=== PATIENT | male | born 1955 ===

== ENCOUNTER → 2020-01-27 09:08 | Outpatient (BNVA) | payer BC, SELFPAY | PROVIDERS: PCP Physician Assistant; Referring Provider Physician Assistant; Visit Provider Nurse Practitioner Family | DX: I25.10 Atherosclerotic heart disease of native coronary artery without angina pectoris (principal); E78.5 Hyperlipidemia, unspecified; I10 Essential (primary) hypertension; R06.02 Shortness of breath; Z79.899 Other long term (current) drug therapy; Z79.82 Long term (current) use of aspirin ==

== ENCOUNTER 2020-03-07 07:31 | Outpatient (REF) | payer BC, SELFPAY ==
[2020-03-07 10:13] LABS: MANUAL DIFF FLAG NO
[2020-03-07 10:14] LABS: Basophils Absolute Auto 0.1 X10*3/uL (0.0-0.2); Basophils Percent Auto 0.8 % (0-2); Eosinophils Absolute Auto 0.3 X10*3/uL (0.0-0.4); Eosinophils Percent Auto 4.2 % (0-4); Hematocrit 44.7 % (42-52); Hemoglobin 15.5 g/dl (14.0-18.0); Imm Gran Abs Auto 0.03 X10*3/uL (0.00-0.03); Imm Gran Pct Auto 0.4 % (0.0-0.4); Lymphocytes Absolute Auto 2.2 X10*3/uL (1.2-4.9); Lymphocytes Percent Auto 31.3 % (20-40); Mean Corpuscular HGB Conc 34.7 g/dl (31.0-36.0); Mean Corpuscular Volume 89.4 fL (80-98); Mean Platelet Volume 9.2 fL (9.4-12.4); Monocytes Absolute Auto 0.8 X10*3/uL (0.1-1.2); Monocytes Percent Auto 10.5 % (2-11); Neutrophils Absolute Auto 3.8 X10*3/uL (2.0-8.3); Neutrophils Percent Auto 52.8 % (45-73); Platelet Count 304 X10*3/uL (160-400); Red Cell Distribution Width 11.3 % (11.0-16.0); White Blood Count 7.2 X10*3/uL (4.8-10.8)
[2020-03-07 10:27] LABS: Estimated Average Glucose 108 mg/dL; Hemoglobin A1c % 5.4 %
[2020-03-07 10:40] LABS: Alanine Aminotransferase 29 U/L (0-40); Albumin Level 4.3 g/dL (3.5-5.0); Alkaline Phosphatase 83 U/L (39-117); Anion Gap 12 (12-20); Aspartate Amino Transferase 20 U/L (5-37); Blood Urea Nitrogen 11 mg/dL (9-16); Calcium 9.1 mg/dL (8.4-10.2); Carbon Dioxide 31 mmol/L (22-29); Chloride 103 mmol/L (96-108); Cholesterol 150 mg/dL; Estimated Glomerular Filt Rate > 60; Glucose Fasting 114 mg/dL (60-99); HDL Cholesterol 49 mg/dL; LDL Cholesterol Calculated 75 mg/dl; Sodium 142 mmol/L (135-145); Total Protein 6.6 g/dL (6.5-8.0); Triglycerides 134 mg/dL
[2020-03-07 11:03] LABS: Prostate Specific Antigen 0.51 ng/mL (<0.05-4.0); Thyroid Stimulating Hormone 3.01 uIU/mL (0.32-4.0)
== END 2020-03-07 07:32 | disposition home or self-care (01) ==
LOC: HO.10HDL 07:31
PROVIDERS: Visit Provider Physician Assistant
DX: E78.5 Hyperlipidemia, unspecified (principal); I10 Essential (primary) hypertension; R73.09 Other abnormal glucose; Z12.5 Encounter for screening for malignant neoplasm of prostate
CPT/HCPCS: 36415; 80053; 80061; 83036; 84153; 84443; 85025

== ENCOUNTER → 2020-09-05 14:52 | Outpatient (BNVA) | payer BC, SELFPAY | PROVIDERS: PCP Physician Assistant; Visit Provider Internal Medicine Cardiovascular Disease ==

== ENCOUNTER → 2020-09-26 08:55 | Outpatient (REF) | payer BC, SELFPAY ==
--- NOTE | 2020-09-26 09:00 | CA_ITS ---
Acquisition Time: 2020-09-26 09:07:25 Total Exercise Time: 00:09:00 Test Indications: SOB Medications: Protocol: ANA Max HR: 137 BPM 87% of Pred: 157 BPM Max BP: 230/076 mmHG Max Work Load: 10.4 METS Exercise stress test with exercise 9 min of Ana protocol, without anginal symptoms, without arrythmia, with hypertensive response to exercise with max BP 230/76, without EKG changes meeting criteria for ischemia. In recovery his BP gradually returned to baseline. He took his Lisinopril 40mg po last evening. Test reviewed with Dr Marshall. Referred By: Shine Marshall Overread By: RODDY SULLIVAN
== END ==
LOC: HO.CARD 08:55
PROVIDERS: Visit Provider Internal Medicine Cardiovascular Disease
DX: R06.02 Shortness of breath (principal)
CPT/HCPCS: 93017

== ENCOUNTER → 2020-09-28 14:02 | Outpatient (REF) | payer BC, SELFPAY ==
--- NOTE | 2020-09-28 14:05 | CA_ITS ---
Transthoracic Echocardiogram Patient (Last, First, Middle): Lalo Hayes E Gender: Male Date of : 1955 Age: 64 Procedure Date: 09/28/2020 Procedure Type: Transthoracic Echocardiogram Location: OP Height: 177.8 cm Weight: 85.73 kg BSA: 2.04 m2 Heart Rate: bpm BP: 135 / 80 mmHg Commercial Crabber: MYRIAM Referring MD: Shine Marshall MD Symptoms: R06.02 - Shortness of breath Study Quality: Technically Difficult ECG Rhythm: Sinus Conclusions: - The left ventricular systolic function is normal. The visually estimated ejection fraction is between 60-65%. - There is mild calcification of the aortic valve. Findings Left Ventricle Normal left ventricular cavity size. There is normal left ventricular wall thickness. The left ventricular systolic function is normal. The visually estimated ejection fraction is between 60-65%. There is no evidence of regional wall motion abnormalities. Diastolic function is normal for age. Right Ventricle Normal right ventricular cavity size and systolic function. Atria Both atria are normal in size. Aortic Valve There is a normal trileaflet aortic valve. There is mild calcification of the aortic valve. There is no aortic valve stenosis. The mean gradient is 4 mmHg. The aortic valve area is 2.78 cm2. There is no aortic valve regurgitation. Mitral Valve The mitral valve appears normal. There is trace mitral valve regurgitation. There is no mitral valve stenosis. Pulmonic Valve The pulmonic valve was not well visualized. Tricuspid Valve Normal tricuspid valve structure. There is trace tricuspid valve regurgitation. The pulmonary artery systolic pressure is normal. Great Vessels The aortic annulus, sinuses of valsalva, asc aorta, and aortic arch are normal in size. Venous The inferior vena cava is normal in size and collapses greater than 50% with inspiration. Pericardium/Pleural There is no evidence of pericardial effusion. Prior Study Comparison No significant change compared to prior study dated: 10/14/2018. Measurements M-Mode Liner Measurements Normals - Women/Men AOV Cusps: 1.90 1.5-2.6 cm/m2 2D Linear Measurements IVSd: 1.05 0.6-0.9/0.6-1.0 cm LVIDd: 4.13 3.9-5.3/4.2-5.9 cm LVIDd Index: 2.02 2.4-3.2/2.2-3.1 cm/m2 LVIDs: 2.41 2.0-3.6 cm LVPWd: 0.96 0.7-1.1 cm Ao Root: 2.90 2.1-3.5 cm LA Diam: 3.40 2.7-3.8/3.0-4.0 cm LAIDs Index: 1.67 1.5-2.3 cm/m2 LV Mass: 167.00 67-162/88-224 g LV Mass Index: 81.86 43-95/49-115 g/m2 LVOT Diam: 2.20 3.0+(-)1.3 cm 2D Systolic Function EF 4C: 65.90 >55% EF 2C: 41.30 >55% EF BiP: 55.80 >55% Mitral Valve MV Pk E: 0.58 MV PK A: 0.73 MV Decel Time: 239.00 E/A: 0.80 E'Lateral: 8.38 E'Medial: 6.20 E/E' Med: 9.30 E/E' Lat: 6.90 PHT: 70.00 MVA PHT: 3.14 Decel Dauphin: 2.42 Aortic Valve AoV Pk Simeon: 1.34 AoV Mn Simeon: 1.01 AoV VTI: 0.26 AoV Pk Grad: 7.00 Aov Mn Grad: 4.00 ANDRES Cont.VTI: 2.78 LVOT LVOT Pk Simeon: 0.91 LVOT Mn Simeon: 0.67 LVOT VTI: 0.19 LVOT Pk Grad: 3.00 LVOT Mn Grad: 2.00 LVOT Diam: 2.20 LVOT Area: 3.80 Diastolic Function MV Pk E: 0.58 MV Pk A: 0.73 E/A: 0.80 E'Medial: 6.20 E/E' Med: 9.30 E' Laterial: 8.38 E/E' Lat: 6.90 Tricuspid Valve TR Pk Simeon: 2.42 TR Pk Grad: 23.00 RA Press: 3.00 RVSP: 26.00 Great Vessels Aorta Ao Root-2D: 2.90 2.0-3.7 cm Ao Asc: 3.00 2.1-3.4 cm Ao Arch: 2.90 Pulmonary Valve PV Pk Simeon: 1.14 Peak PV Grad: 5.00 Updated in Other Vendor System with Status of Final John Mcbride MD electronically signed on 09/30/2020 1:39:06 PM with status of Final
== END ==
LOC: HO.CARD 14:02
PROVIDERS: Visit Provider Internal Medicine Cardiovascular Disease
DX: R06.02 Shortness of breath (principal); I25.10 Atherosclerotic heart disease of native coronary artery without angina pectoris; I10 Essential (primary) hypertension; E78.2 Mixed hyperlipidemia
CPT/HCPCS: 93005; 93306

== ENCOUNTER 2020-10-11 07:54 | Outpatient (REF) | payer BC, SELFPAY ==
[2020-10-11 10:32] LABS: MANUAL DIFF FLAG NO
[2020-10-11 10:40] LABS: Basophils Absolute Auto 0.1 X10*3/uL (0.0-0.2); Eosinophils Absolute Auto 0.3 X10*3/uL (0.0-0.4); Eosinophils Percent Auto 4.4 % (0-4); Hematocrit 46.4 % (42-52); Hemoglobin 16.4 g/dl (14.0-18.0); Imm Gran Abs Auto 0.02 X10*3/uL (0.00-0.03); Imm Gran Pct Auto 0.3 % (0.0-0.4); Lymphocytes Absolute Auto 2.1 X10*3/uL (1.2-4.9); Lymphocytes Percent Auto 33.9 % (20-40); Mean Corpuscular HGB Conc 35.3 g/dl (31.0-36.0); Mean Corpuscular Volume 87.7 fL (80-98); Mean Platelet Volume 9.2 fL (9.4-12.4); Monocytes Absolute Auto 0.6 X10*3/uL (0.1-1.2); Monocytes Percent Auto 9.7 % (2-11); Neutrophils Absolute Auto 3.1 X10*3/uL (2.0-8.3); Neutrophils Percent Auto 50.7 % (45-73); Platelet Count 353 X10*3/uL (160-400); Red Blood Count 5.29 X10*6/uL (4.60-5.80); Red Cell Distribution Width 11.2 % (11.0-16.0); White Blood Count 6.1 X10*3/uL (4.8-10.8)
[2020-10-11 11:06] LABS: Monotest Negative (Negative)
[2020-10-11 11:11] LABS: Creatinine Urine 164.69 mg/dL; Microalbum/Creatinine Ratio Ur 4.8 ug/mg cr
[2020-10-11 11:27] LABS: Folate 16.8 ng/mL (> or = 4.0); Vitamin B12 446 pg/mL (200-900)
[2020-10-11 12:57] LABS: Alanine Aminotransferase 49 U/L (0-40); Albumin Level 4.4 g/dL (3.5-5.0); Alkaline Phosphatase 79 U/L (39-117); Anion Gap 15 (12-20); Aspartate Amino Transferase 33 U/L (5-37); Bilirubin Total 0.8 mg/dL (0.0-1.0); Blood Urea Nitrogen 15 mg/dL (9-16); Calcium 9.5 mg/dL (8.4-10.2); Carbon Dioxide 28 mmol/L (22-29); Chloride 102 mmol/L (96-108); Cholesterol 156 mg/dL; Estimated Glomerular Filt Rate > 60; Glucose Fasting 128 mg/dL (60-99); HDL Cholesterol 54 mg/dL; LDL Cholesterol Calculated 85 mg/dl; Potassium 3.9 mmol/L (3.3-5.1); Sodium 141 mmol/L (135-145); Total Protein 6.8 g/dL (6.5-8.0); Triglycerides 86 mg/dL
[2020-10-11 16:06] LABS: TSH reflex Free T4 2.17 uIU/mL (0.32-4.0)
[2020-10-11 20:49] LABS: Prostate Specific Antigen Scr 0.72 ng/mL (<0.05-4.0)
[2020-10-15 15:16] LABS: EBV DNA PCR Not Detected (Not Detected); EBV Source Whole Blood
== END 2020-10-11 07:55 | disposition home or self-care (01) ==
LOC: HO.10HDL 07:54
PROVIDERS: Visit Provider Physician Assistant
DX: Z12.5 Encounter for screening for malignant neoplasm of prostate (principal); I25.10 Atherosclerotic heart disease of native coronary artery without angina pectoris; R53.83 Other fatigue; I10 Essential (primary) hypertension
CPT/HCPCS: 36415; 80053; 80061; 82043; 82607; 82746; 84153; 84443; 85025; 86308; 87798

== ENCOUNTER → 2020-10-17 15:00 | Outpatient (BNVA) | payer BC, SELFPAY | PROVIDERS: PCP Physician Assistant; Visit Provider Internal Medicine Cardiovascular Disease ==

== ENCOUNTER 2020-11-06 10:27 | Outpatient (REF) | payer BC, SELFPAY ==
[2020-11-06 14:18] LABS: Lipase 14 U/L (8-78)
[2020-11-07 08:32] LABS: Lyme Abs Screen <0.90 index
== END 2020-11-06 10:28 | disposition home or self-care (01) ==
LOC: HO.10HDL 10:27
PROVIDERS: Visit Provider Physician Assistant
DX: R53.83 Other fatigue (principal)
CPT/HCPCS: 36415; 83690; 86617; 86618

== ENCOUNTER 2020-11-09 14:43 | Outpatient (REF) | payer BC, SELFPAY ==
--- NOTE | ~2020-11-09 | CT_ITS ---
EXAMINATION: CT HEAD WITH CONTRAST CLINICAL INFORMATION: Bilateral tinnitus. COMPARISON: None TECHNIQUE: Contiguous axial imaging was performed from the skull base to vertex following the administration of 85 mL of Omnipaque [address] examination was performed using dose optimization techniques as appropriate, variously including the following: *Automated exposure control *Adjustment of mA and/or kV according to patient size (this includes techniques or standardized protocols for targeted exams where dose is matched to indication/reason for exam; i.e. extremities or head) *Use of iterative reconstruction technique DLP: 154 mGy-cm FINDINGS: There is no evidence of acute intracranial hemorrhage or territorial infarction. No abnormal mass effect or midline shift is seen. Jerez to white matter differentiation is well preserved. No extra-axial fluid collections are identified. There is no abnormal enhancement. The ventricles are normal in size. There is no abnormal attenuation within the brain parenchyma. Normal enhancement is seen in the major cerebral vasculature. The osseous structures and soft tissues are normal. The mastoid air cells and visualized portions of the paranasal sinuses are well aerated. CT/CT head/brain w con IMPRESSION: No acute intracranial process seen. There is no abnormal enhancement.
--- NOTE | ~2020-11-09 | CT_ITS ---
EXAMINATION: CT INTERNAL AUDITORY CANALS WITH CONTRAST CLINICAL INFORMATION: Tinnitus, bilateral. COMPARISON: None TECHNIQUE: Contiguous axial imaging was performed from the skull base to vertex following the administration of 85 mL of Omnipaque [address] examination was performed using dose optimization techniques as appropriate, variously including the following: *Automated exposure control *Adjustment of mA and/or kV according to patient size (this includes techniques or standardized protocols for targeted exams where dose is matched to indication/reason for exam; i.e. extremities or head) *Use of iterative reconstruction technique DLP: 924 mGy-cm FINDINGS: Exostoses are seen involving the right and left external auditory canals causing significant narrowing but without occlusion at this time. The tympanic membranes appear normal without thickening. The ossicular chains are intact bilaterally. No osseous erosion is seen. There is no evidence of otosclerosis. No soft tissue abnormality is seen in the middle ear cavities. The mastoid air cells are well aerated. Cranial VII follows a normal course bilaterally. The inner ear structures and internal auditory canals are normal. The carotid canals and jugular bulbs appear normal. The posterior fossa dural venous sinuses appear patent without thrombosis. No discrete dural venous fistula is seen within the posterior fossa. The imaged intracranial arteries appear normal. Postoperative findings of prior functional endoscopic sinus surgery is incidentally noted. CT/CT internal auditory canals BI IMPRESSION: Exostosis is seen involving the right and left-sided external auditory canals causing significant narrowing on both sides. Mastoids and middle ear cavities are clear. No vascular abnormality identified in the posterior fossa.
[2020-11-09] MEDS: iohexoL 350 MG/ML 100 ML INFUS..BTL IV (15:39)
== END 2020-11-09 14:44 | disposition home or self-care (01) ==
LOC: HO.CT 14:43
PROVIDERS: PCP Physician Assistant; Visit Provider Physician Assistant
DX: H93.13 Tinnitus, bilateral (principal)
CPT/HCPCS: 70460; 70480; Q9967

== ENCOUNTER 2021-01-24 07:28 | Outpatient (REF) | payer BC, SELFPAY ==
--- NOTE | ~2021-01-24 | XR_ITS ---
EXAMINATION: XR KNEE, RIGHT CLINICAL INFORMATION: Right knee pain. COMPARISON: None TECHNIQUE: AP, lateral, and sunrise views of the right knee. FINDINGS: Mild medial compartment joint space narrowing. Tiny patellofemoral and medial compartment marginal osteophytes. No osseous erosion. Superior patellar enthesophyte. Ossified loose body posterior to the tibial plateau measuring up to 1.0 cm. Small joint effusion. XR/XR knee RT 3V IMPRESSION: Mild patellofemoral and medial compartment osteoarthritis. Small joint effusion. Ossified loose body posterior to the medial tibial plateau measuring 1.0 cm.
== END 2021-01-24 07:29 | disposition home or self-care (01) ==
LOC: HO.XRAY 07:28
PROVIDERS: PCP Physician Assistant; Visit Provider Physician Assistant
DX: M25.561 Pain in right knee (principal)
CPT/HCPCS: 73562

== ENCOUNTER → 2021-02-08 13:04 | Outpatient (BNVA) | payer BC, SELFPAY | PROVIDERS: Visit Provider Physician Assistant ==

== ENCOUNTER 2021-02-27 13:57 | Outpatient (REF) | payer BC, SELFPAY ==
--- NOTE | ~2021-02-27 | MR_ITS ---
EXAMINATION: MR KNEE WITHOUT CONTRAST, RIGHT CLINICAL INFORMATION: Medial right knee pain. Internal derangement. COMPARISON: Right knee radiographs dated 01/24/2021. TECHNIQUE: MRI of the knee without contrast was performed using routine sequences on a high-field scanner. FINDINGS: MENISCI: Medial Meniscus: Oblique tibial articular surface tear of the posterior meniscal body and posterior horn. Tiny posterior parameniscal cyst measuring 0.9 cm in ML dimension. Lateral Meniscus: Intact. LIGAMENTS: Cruciate: Intact. Collateral: Edema adjacent to the medial collateral ligament, which may be related to the meniscal tear or indicate a grade 1 sprain. Intact fibular collateral ligament. EXTENSOR MECHANISM: Superior patellar enthesophytes. Intact quadriceps and patellar tendons. ARTICULAR CARTILAGE/BONE: Patellofemoral Compartment: Medial patellar articular cartilage signal heterogeneity and surface irregularity. Central trochlea full-thickness fissuring and signal heterogeneity. Tiny marginal osteophytes. Medial Compartment: Weightbearing medial femoral condyle articular cartilage signal heterogeneity and surface irregularity with tiny marginal osteophytes. Lateral Compartment: Normal. JOINT FLUID AND BURSAE: Trace joint effusion and trace Graham's cyst. Mild fluid within the pes anserine bursa, which may be related to the Graham's cyst or represent mild bursitis. Within the bursa, there is a 0.8 cm calcified loose body. MR/MR knee RT wo con IMPRESSION: 1. Oblique tibial articular surface tear of the posterior medial meniscal body and posterior horn with a tiny posterior parameniscal cyst. 2. Edema adjacent to the medial collateral ligament which could represent a grade 1 sprain or be related to the adjacent meniscal tear. 3. Mild patellofemoral and medial compartment osteoarthritis. 4. Trace joint effusion and trace Graham's cyst. Mild fluid within the pes anserine bursa, which may be related to the Graham's cyst or represent mild bursitis. Calcified loose body within the bursal measuring 0.8 cm.
== END 2021-02-27 13:58 | disposition home or self-care (01) ==
LOC: HO.MRI 13:57
PROVIDERS: Visit Provider Physician Assistant
DX: M23.90 Unspecified internal derangement of unspecified knee (principal)
CPT/HCPCS: 73721

== ENCOUNTER → 2021-03-19 09:45 | Outpatient (BNVA) | payer BC, SELFPAY | PROVIDERS: PCP Physician Assistant; Visit Provider Physician Assistant ==

== ENCOUNTER 2021-09-21 08:00 | Outpatient (REF) | payer OTHER, SELFPAY ==
[2021-09-21 12:03] LABS: Hematocrit 44.7 % (42.0-52.0); Hemoglobin 15.7 g/dl (14.0-18.0); Mean Corpuscular HGB Conc 35.1 g/dl (31.0-36.0); Mean Corpuscular Hemoglobin 31.1 pg (27.0-33.0); Mean Corpuscular Volume 88.5 fL (80.0-98.0); Mean Platelet Volume 9.3 fL (9.4-12.4); Platelet Count 291 X10*3/uL (160-400); Red Blood Count 5.05 X10*6/uL (4.60-5.80); Red Cell Distribution Width 11.5 % (11.0-16.0); White Blood Count 5.8 X10*3/uL (4.8-10.8)
[2021-09-21 12:24] LABS: Alanine Aminotransferase 29 U/L (0-40); Albumin Level 4.3 g/dL (3.5-5.0); Alkaline Phosphatase 68 U/L (39-117); Anion Gap 13 (12-20); Aspartate Amino Transferase 20 U/L (5-37); Bilirubin Total 1.2 mg/dL (0.0-1.0); Blood Urea Nitrogen 17 mg/dL (9-16); Calcium 9.1 mg/dL (8.4-10.2); Carbon Dioxide 28 mmol/L (22-29); Chloride 105 mmol/L (96-108); Cholesterol 160 mg/dL; Estimated Glomerular Filt Rate > 60; Glucose Fasting 113 mg/dL (60-99); HDL Cholesterol 47 mg/dL; LDL Cholesterol Calculated 93 mg/dl; Sodium 142 mmol/L (135-145); Total Protein 6.7 g/dL (6.5-8.0); Triglycerides 100 mg/dL
[2021-09-21 12:31] LABS: Prostate Specific Antigen Scr 0.39 ng/mL (<0.05-4.0)
== END 2021-09-21 08:01 | disposition home or self-care (01) ==
LOC: HO.HMGCLDS 08:00
PROVIDERS: Absent Provider Physician Assistant; PCP Physician Assistant; Visit Provider Internal Medicine Cardiovascular Disease
DX: Z12.5 Encounter for screening for malignant neoplasm of prostate (principal); I25.10 Atherosclerotic heart disease of native coronary artery without angina pectoris
CPT/HCPCS: 36415; 80053; 80061; 84153; 85027

== ENCOUNTER → 2021-10-17 09:12 | Outpatient (BNVA) | payer OTHER, SELFPAY | PROVIDERS: PCP Physician Assistant; Referring Provider Physician Assistant; Visit Provider Internal Medicine Cardiovascular Disease | DX: I25.10 Atherosclerotic heart disease of native coronary artery without angina pectoris (principal); I10 Essential (primary) hypertension | CPT/HCPCS: 93005 ==

== ENCOUNTER → 2021-10-31 08:29 | Outpatient (REF) | payer OTHER, SELFPAY ==
--- NOTE | ~2021-10-31 | XR_ITS ---
EXAMINATION: XR SINUSES CLINICAL INFORMATION: Chronic sinusitis COMPARISON: CT brain 11/09/2020 TECHNIQUE: 3 views of the sinuses were obtained. FINDINGS: Surgical changes of bilateral prior maxillary antrostomies better appreciated on prior CT. Visualized paranasal sinuses appear clear. No air-fluid levels. XR/XR sinus min 3V IMPRESSION: Visualized paranasal sinuses appear clear. If clinical concern for sinusitis persists, CT sinuses be more sensitive for evaluation.
--- NOTE | 2021-10-31 08:59 | CA_ITS ---
Acquisition Time: 2021-10-31 09:05:43 Total Exercise Time: 00:09:00 Test Indications: Fatigue Medications: SEE H Protocol: ANA Max HR: 139 BPM 89% of Pred: 156 BPM Max BP: 192/088 mmHG Max Work Load: 10.1 METS Exercise stress test with exercise 9 min of Ana protocol, achieving 89% MPHR, 10.1 METs, without anginal symptoms, with isolated PVCs and few ventricular cuplets, with normotensive response to exercise, without EKG changes meeting criteria for ischemia. Test reviewed with Dr Ron. Referred By: Shine Marshall Overread By: RODDY SULLIVAN
[2021-10-31 10:43] LABS: Potassium 4.4 mmol/L (3.3-5.1)
[2021-10-31 10:49] LABS: Anion Gap 11 (12-20); Blood Urea Nitrogen 16 mg/dL (9-16); Calcium 9.3 mg/dL (8.4-10.2); Carbon Dioxide 29 mmol/L (22-29); Chloride 103 mmol/L (96-108); Estimated Glomerular Filt Rate > 60; Glucose Random 120 mg/dL (60-115); Potassium 4.4 mmol/L (3.3-5.1); Sodium 139 mmol/L (135-145)
== END ==
LOC: HO.CARD 08:29
PROVIDERS: PCP Physician Assistant; Visit Provider Internal Medicine Cardiovascular Disease
DX: R53.83 Other fatigue (principal); I10 Essential (primary) hypertension; I25.10 Atherosclerotic heart disease of native coronary artery without angina pectoris; J32.9 Chronic sinusitis, unspecified
CPT/HCPCS: 36415; 70220; 80048; 84132; 93017

== ENCOUNTER 2022-02-08 08:00 | Outpatient (RCR) | payer OTHER, SELFPAY ==
[2022-01-15 08:02] VITALS: BP 153/70; PULSE 68
--- NOTE | 2022-01-15 08:49 | MHC.PT.EP ---
[facility] [place] [facility] [place] [facility] [place] [facility] [address] Zane Verdin [address] [phone] F: [phone] F: [phone] F: [phone] F: [phone] Physical Therapy Plan of Care Date of Evaluation: Date of Surgery: NA Diagnosis: Cervicalagia Assessment: Lalo is a 66 year old male who is referred to PT for cevicalagia . He reports of having h/o neck pain and stiffness for the last 2-3 years however about 8 months back he started experiencing pain over the medial border of scap with R SL with thick pillow and with golf swings. He presented with 2/10 pain in neck and R scapula region, mild TTP over B UT, limited cervical ROM, limited cervical and scapula muscle strength and impaired posture. Due to these impairments he has pain with some ADLS, and golfing. 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 He would benefit from skilled PT to address the aforementioned impairments and improve tolerance to functional activities. Frequency and Duration: The patient will be seen 2/week for 4 weeks Short Term Goals: 1. Pt will have 50% decrease in pain which will improve tolerance to R SL in 2 weeks. 2. Pt will have about 50% decrease in neck ROM which will enable him to rotate his neck without discomfort while driving in 3 weeks. Nursing Home Goals: 1. Pt will present with increase in strength by 1 grade which will enable him to golf without pain in 4 weeks. 2. Pt will be independent with [facility] for symptom management and maintenance following d/c in 4 weeks. Treatment Plan: Modalities to reduce pain, spasms and effusion. Manual therapy to restore motion and function. Therapeutic exercise to improve strength and flexibility. Neuromuscular re-education for posture and balance. Therapeutic activities to return to functional activities of daily living. Electronically signed by: Ila Parsons PT DPT Please sign and return to therapist. Thank you for your referral.
--- NOTE | 2022-03-12 08:51 | MHC.PT.DC ---
[facility] [place] Office [place] Office [place] Office [address] Zane Verdin [address] [phone] F: [phone] F: [phone] F: [phone] F: [phone] Physical Therapy Discharge Report Diagnosis: Cervicalagia Date of Surgery: NA Date of Evaluation: 01/15/22 Date of Discharge: 03/12/22 Treatments to Date: 6 Cancellations to Date: 0 No Shows to Date: Discharge Status: Improved Function Independent with HEP Discharge Summary: Lalo completed 6 PT visits and noticed improvements in his symptoms with his HEP. He however was not compliant with HEP. He stated he would return to PT after 2 weeks of trialing them however he has not returned in over a month. He is therefore being d/c from PT. Electronically signed by: Ila Parsons, PT DPT Please sign and return to therapist. Thank you for your referral.
== END 2022-03-12 08:52 | disposition home or self-care (01) ==
LOC: HO.PT 08:00
PROVIDERS: PCP Physician Assistant; Visit Provider Physician Assistant
DX: M54.2 Cervicalgia (principal)
CPT/HCPCS: 97110; 97112; 97140; 97161

== ENCOUNTER 2022-03-12 07:46 | Outpatient (REF) | payer OTHER, SELFPAY ==
[2022-03-12 10:49] LABS: Hematocrit 45.2 % (42.0-52.0); Hemoglobin 15.5 g/dl (14.0-18.0); Mean Corpuscular HGB Conc 34.3 g/dl (31.0-36.0); Mean Corpuscular Hemoglobin 30.5 pg (27.0-33.0); Mean Corpuscular Volume 88.8 fL (80.0-98.0); Mean Platelet Volume 8.9 fL (9.4-12.4); Platelet Count 299 X10*3/uL (160-400); Red Blood Count 5.09 X10*6/uL (4.60-5.80); Red Cell Distribution Width 10.8 % (11.0-16.0); White Blood Count 5.9 X10*3/uL (4.8-10.8)
[2022-03-12 11:21] LABS: TSH reflex Free T4 3.22 uIU/mL (0.32-4.0)
[2022-03-12 11:28] LABS: Alanine Aminotransferase 25 U/L (0-40); Albumin Level 4.5 g/dL (3.5-5.0); Alkaline Phosphatase 71 U/L (39-117); Anion Gap 16 (12-20); Aspartate Amino Transferase 20 U/L (5-37); Bilirubin Total 0.8 mg/dL (0.0-1.0); Blood Urea Nitrogen 17 mg/dL (9-16); Calcium 9.8 mg/dL (8.4-10.2); Carbon Dioxide 27 mmol/L (22-29); Chloride 103 mmol/L (96-108); Cholesterol 210 mg/dL; Estimated Glomerular Filt Rate > 60; Glucose Fasting 122 mg/dL (60-99); HDL Cholesterol 40 mg/dL; LDL Cholesterol Calculated 127 mg/dl; Potassium 4.1 mmol/L (3.3-5.1); Sodium 142 mmol/L (135-145); Total Protein 7.1 g/dL (6.5-8.0); Triglycerides 217 mg/dL
[2022-03-12 12:40] LABS: Creatinine Urine 99.26 mg/dL; Microalbumin Urine < 5.0 mg/L
== END 2022-03-12 07:47 | disposition home or self-care (01) ==
LOC: HO.10HDL 07:46
PROVIDERS: Internal Medicine Cardiovascular Disease; Visit Provider Physician Assistant
DX: E78.2 Mixed hyperlipidemia (principal); I25.10 Atherosclerotic heart disease of native coronary artery without angina pectoris; I10 Essential (primary) hypertension; Z78.9 Other specified health status
CPT/HCPCS: 36415; 80053; 80061; 82043; 84443; 85027; 86787

== ENCOUNTER 2022-03-18 10:21 | Outpatient (REF) | payer OTHER, SELFPAY ==
--- NOTE | ~2022-03-18 | US_ITS ---
EXAMINATION: US ABDOMEN LIMITED CLINICAL INFORMATION: Right upper quadrant pain. COMPARISON: MRI abdomen without and with contrast 10/06/2014. Ultrasound abdomen complete 09/12/2014. Renal ultrasound 09/21/2013. TECHNIQUE: Real-time imaging of the right upper quadrant abdominal viscera. FINDINGS: PANCREAS: Normal LIVER: Liver echotexture is increased and slightly heterogeneous. There is a hypoechoic area adjacent to the gallbladder, a characteristic of fatty sparing. There are 3 hypoechoic areas in the right lobe of the liver questionable for known hemangiomas. These measure 1.7 x 2.2 x 1.9 cm, 1.7 x 1.3 x 1.8 cm and 2.6 x 2 x 2.6 cm. Previous liver lesions on ultrasound were hyperechoic. Comparison with previous MRI is difficult. There is no biliary duct dilatation. GALLBLADDER: No gallstones. Small gallbladder wall polyp measuring 3 mm. This is stable from previous exam. COMMON BILE DUCT: Normal in caliber measuring 0.2 cm in diameter. RIGHT KIDNEY: Normal. No hydronephrosis. No renal calculi or focal parenchymal lesions. The kidney measures 11.4 cm in maximum dimension. FREE FLUID: None US/US abdomen limited IMPRESSION: Increased slightly heterogeneous liver echotexture probably representing fatty infiltration. Three slightly hypoechoic liver lesions. Previously, the 2 identified hemangiomas on ultrasound from 2014 were hyperechoic and comparison with previous MRI is difficult. If there is clinical concern, repeat liver MRI should be considered. Stable small gallbladder wall polyp. No gallstones.
== END 2022-03-18 10:22 | disposition home or self-care (01) ==
LOC: HO.HMGCX 10:21
PROVIDERS: PCP Physician Assistant; Visit Provider Physician Assistant
DX: R10.11 Right upper quadrant pain (principal)
CPT/HCPCS: 76705

== ENCOUNTER 2022-09-12 07:46 | Outpatient (REF) | payer MEDICARE, SELFPAY ==
[2022-09-12 11:08] LABS: Hematocrit 46.5 % (42.0-52.0); Mean Corpuscular HGB Conc 34.4 g/dl (31.0-36.0); Mean Corpuscular Volume 90.1 fL (80.0-98.0); Mean Platelet Volume 9.2 fL (9.4-12.4); Platelet Count 299 X10*3/uL (160-400); Red Blood Count 5.16 X10*6/uL (4.60-5.80); Red Cell Distribution Width 11.6 % (11.0-16.0); White Blood Count 6.7 X10*3/uL (4.8-10.8)
[2022-09-12 11:16] LABS: Alanine Aminotransferase 31 U/L (0-40); Albumin Level 4.3 g/dL (3.5-5.0); Alkaline Phosphatase 65 U/L (39-117); Anion Gap 12 (12-20); Aspartate Amino Transferase 21 U/L (5-37); Bilirubin Total 1.1 mg/dL (0.0-1.0); Blood Urea Nitrogen 17 mg/dL (9-16); Calcium 9.7 mg/dL (8.4-10.2); Carbon Dioxide 29 mmol/L (22-29); Chloride 103 mmol/L (96-108); Cholesterol 195 mg/dL; Estimated Glomerular Filt Rate > 60; Glucose Fasting 121 mg/dL (60-99); HDL Cholesterol 44 mg/dL; LDL Cholesterol Calculated 119 mg/dl; Potassium 4.1 mmol/L (3.3-5.1); Sodium 140 mmol/L (135-145); Triglycerides 160 mg/dL
[2022-09-12 11:31] LABS: Prostate Specific Antigen Scr 0.63 ng/mL (<0.05-4.0)
[2022-09-12 12:00] LABS: Creatinine Urine 89.64 mg/dL; Microalbumin Urine < 5.0 mg/L
== END 2022-09-12 07:47 | disposition home or self-care (01) ==
LOC: HO.10HDL 07:46
PROVIDERS: Visit Provider Physician Assistant
DX: Z12.5 Encounter for screening for malignant neoplasm of prostate (principal); E78.2 Mixed hyperlipidemia; I25.10 Atherosclerotic heart disease of native coronary artery without angina pectoris; I10 Essential (primary) hypertension
CPT/HCPCS: 36415; 80053; 80061; 82043; 84153; 85027

== ENCOUNTER 2022-09-16 14:25 | Outpatient (REF) | payer MEDICARE, SELFPAY ==
--- NOTE | ~2022-09-16 | MR_ITS ---
EXAMINATION: MR ABDOMEN WITHOUT AND WITH CONTRAST CLINICAL INFORMATION: Right upper quadrant pain. Follow-up liver lesion seen on ultrasound. Question change in appearance of hemangiomas. COMPARISON: Previous abdominal ultrasound March 2022 and liver MRI 2014 TECHNIQUE: MR abdomen was performed without and with use of 9 mL intravenous Gadavist gadolinium contrast. Postcontrast images are performed in multiphase dynamic sequences. Imaging was performed in 3 planes. FINDINGS: LUNG BASES: The visualized lung bases are unremarkable. LIVER, GALLBLADDER, AND BILIARY TREE: The liver is normal in size and contour. The liver loses signal on out of phase sequences suggestive of mild fatty infiltration. There are numerable, approximately 15 liver lesion seen. These are low signal on T1 and high signal on T2-weighted sequences. The majority of the lesions demonstrate peripheral puddling enhancement and are suggestive of benign hemangiomas. Liver lesions appear unchanged from 2015. No new liver lesion is seen. The gallbladder is unremarkable with no evidence of gallbladder wall thickening, or obvious pericholecystic inflammatory changes. PANCREAS: Unremarkable. SPLEEN: Normal. ADRENAL GLANDS: Normal. KIDNEYS AND URETERS: There is a 1.6 x 1.7 cm lesion exophytic to the lateral upper pole of the left kidney. This is high signal on T1-weighted sequences and low signal on T2-weighted sequences. Evaluation for enhancement is limited due to intrinsic bright T1 signal. This appears to demonstrate enhancement on early arterial phase imaging. Differential would include a papillary-type renal cell cancer versus complex proteinaceous or hemorrhagic cyst. This is increased in size from 8 mm on previous MRI exam. Biopsy is recommended. There is a 5 x 6.5 cm minimally complex cyst with several thin septations exophytic to the lower pole of the left kidney. This is unchanged. There is a small 3 to 4 mm low signal T1 and high signal T2 lesion in the anterior lower pole left kidney question representing a cyst. The right kidney is normal. GASTROINTESTINAL TRACT: No bowel obstruction. No ascites or fluid collection. ABDOMINAL WALL: No significant hernia is appreciated. LYMPH NODES: No lymphadenopathy. VASCULAR: Unremarkable. OSSEOUS STRUCTURES: Marrow signal normal. MR/MR abdomen wo/w con IMPRESSION: Mild fatty infiltration of the liver. Stable multiple liver hemangiomas. Increasing complex cyst versus solid lesion in the upper pole of the left kidney. Renal biopsy recommended. Findings will be communicated by the [place] work flow brake assembler.
== END 2022-09-16 14:26 | disposition home or self-care (01) ==
LOC: HO.MRI 14:25
PROVIDERS: PCP Physician Assistant; Visit Provider Physician Assistant
DX: K76.9 Liver disease, unspecified (principal)
CPT/HCPCS: 74183

== ENCOUNTER 2022-10-30 08:41 | Outpatient (AMB) | payer MEDICARE, SELFPAY ==
--- NOTE | 2022-10-30 08:19 | A.OFFVIS_ITS ---
Intake Intake Visit Reasons: abnormal imaging of kidney/ureter Intake Note: NEW Patient presents today to established treatment for Abnormal Imaging of the Kidney & Ureter: Meds- None Allergies to Antibiotic- None Blood Thinner- Aspirin PVR- 21ml Jet Aircraft Servicer Required: No Accompanied by: Self / Same As Patient Allergies No Known Allergies Allergy (Verified 10/30/22 08:57) HPI HPI Comments History of Present Illness Details Lalo is a 66-year-old male who presents to the clinic today for abnormal imaging of kidney/ureter. 10/30/22? The patient had an MRI on 09/16/22 that noted a 1.6 x 1.7 cm lesion in the left kidney. Evaluation for enhancement is limited on this study. He is here for further evaluation. He states that he has a chronic history of hematuria. He has been followed for kidney cysts. He states that he had the recent imaging due to complaints of abdominal pain on his right side. Evaluation today?UA 10/30/22? Blood 10 Supa. Leukocytes: negative. Bladder scan PVR is 21. Review of labs 09/12/22 ? PSA 0.63. 10/11/20 ? PSA 0.72. 09/21/21?PSA 0.39. Plan: MRI results were reviewed with the patient. We are going to obtain a CAT scan of the abdomen with and without IV contrast renal mass to see if we can get more information regarding what the lesion is doing. CAT scan to be scheduled. Follow up in 8 weeks pending CAT scan results. [facility] Medical History CAD (coronary artery disease) HLD (hyperlipidemia) HTN (hypertension) Surgical History History of cystostomy History of nasal surgery History of shoulder surgery Hx of removal of cyst Family History Father CAD (coronary artery disease) Mother Healthy adult Brother Melanoma Social History Housing: House Alcohol intake: current Alcohol intake frequency: a few times a week Alcohol type: wine Patient Tobacco Use Status: Never used Tobacco e-Cigarette/Vaping Use: Never Used Second Hand Smoke Exposure: No service: No Current occupational status: retired Current occupation: Retired Cognitive needs: No Hearing needs: No Vision needs: Yes (glasses) Review of Systems Const All systems reviewed & are unremarkable except as noted in HPI and below Reports no additional complaints Eyes Reports no additional complaints ENT Reports no additional complaints Card Denies dyspnea Resp Denies cough and Denies dyspnea GI Reports no additional complaints Musc Reports no additional complaints Skin/Breast Denies rash and Denies unusual bruising Neuro Reports no additional complaints Psych Reports no additional complaints Endo Reports no additional complaints Jose/Lymph Reports no additional complaints Aller/Immun Reports no additional complaints Physical Exam Const General: healthy appearing, no acute distress and well developed Orientation/consciousness: patient oriented x3 Eyes Conjunctivae: conjunctivae normal Neck Neck: Yes normal visual inspection Chest Chest palpation & inspection: normal inspection of the chest Resp Effort & Inspection: normal respiratory effort Cardio Rate: regular rate GI Inspection: Yes normal to inspection Skin General skin exam: no rashes or lesions noted Neuro General: patient oriented x3 Extrem General: No pedal edema Psych Appearance: grossly normal Affect: normal affect Office Procedures Post Void Residual Post Residual Void Post Void Residual (PVR): 21 [id number] Void Residual by ultrasound Results AMB Urinalysis, Automated UA Leukoctes 0 [place]/uL Last Edit by SANDRA Chua on 10/30/22 09:16 UA Nitrite Negative Last Edit by SANDRA Chua on 10/30/22 09:16 UA Urobilinogen 0.2 mg/dL Last Edit by SANDRA Chua on 10/30/22 09:1 6 UA Protein 0 mg/dL Last Edit by SANDRA Chua on 10/30/22 09:16 UA pH 7.0 Last Edit by SANDRA Chua on 10/30/22 09:16 UA Blood 10 Supa/uL Last Edit by SANDRA Chua on 10/30/22 09:16 UA Specific [place] 1.010 Last Edit by SANDRA Chua on 10/30/22 09: 16 UA Ketone Negative Last Edit by SANDRA Chua on 10/30/22 09:16 UA Bilirubin 0 mg/dL Last Edit by SANDRA Chua on 10/30/22 09:16 UA Glucose 0 mg/dL Last Edit by SANDRA Chua on 10/30/22 09:16 Results Reviewed Results Reviewed: Laboratory Last Values Urine pH (Auto) 7.0 10/30/22 08:46 Specific [place] (Auto) 1.010 10/30/22 08:46 Urine Protein (Auto) 0 mg/dL 10/30/22 08:46 Glucose (UA)(Auto) 0 mg/dL 10/30/22 08:46 Urine Ketones (Auto) Negative 10/30/22 08:46 Urine Blood (Auto) 10 Supa/uL 10/30/22 08:46 Urine Nitrite (Auto) Negative 10/30/22 08:46 Urine Bilirubin (Auto) 0 mg/dL 10/30/22 08:46 Urine Urobilinogen (Auto) 0.2 mg/dL 10/30/22 08:46 Leukocyte Esterase (Auto) 0 [place]/uL 10/30/22 08:46 Date - 09/16/22 FINDINGS: LUNG BASES: The visualized lung bases are unremarkable.? LIVER, GALLBLADDER, AND BILIARY TREE: The liver is normal in size and contour. The liver loses signal on out of phase sequences suggestive of mild fatty infiltration. There are numerable, approximately 15 liver lesion seen. These are low signal on T1 and high signal on T2-weighted sequences. The majority of the lesions demonstrate peripheral puddling enhancement and are suggestive of benign hemangiomas. Liver lesions appear unchanged from 2015. No new liver lesion is seen. The gallbladder is unremarkable with no evidence of gallbladder wall thickening, or obvious pericholecystic inflammatory changes.? PANCREAS: Unremarkable.? SPLEEN: Normal.? ADRENAL GLANDS: Normal.? KIDNEYS AND URETERS: There is a 1.6 x 1.7 cm lesion exophytic to the lateral upper pole of the left kidney. This is high signal on T1-weighted sequences and low signal on T2-weighted sequences. Evaluation for enhancement is limited due to intrinsic bright T1 signal. This appears to demonstrate enhancement on early arterial phase imaging. Differential would include a papillary-type renal cell cancer versus complex proteinaceous or hemorrhagic cyst. This is increased in size from 8 mm on previous MRI exam. Biopsy is recommended. There is a 5 x 6.5 cm minimally complex cyst with several thin septations exophytic to the lower pole of the left kidney. This is unchanged. There is a small 3 to 4 mm low signal T1 and high signal T2 lesion in the anterior lower pole left kidney question representing a cyst. The right kidney is normal. GASTROINTESTINAL TRACT: No bowel obstruction.? No ascites or fluid collection. ? ABDOMINAL WALL: No significant hernia is appreciated.? LYMPH NODES: No lymphadenopathy. VASCULAR: Unremarkable. OSSEOUS STRUCTURES: Marrow signal normal. IMPRESSION: Mild fatty infiltration of the liver. Stable multiple liver hemangiomas. Increasing complex cyst versus solid lesion in the upper pole of the left kidney. Renal biopsy recommended. 09/12/22 ? PSA 0.63. 10/11/20 ? PSA 0.72. 09/21/21?PSA 0.39. Assessment & Plan Assessment & Plan (1) Complex renal cyst: Code(s): N28.1 - Cyst of kidney, acquired (2) Renal mass of unknown nature: Code(s): N28.89 - Other specified disorders of kidney and ureter (3) Microscopic hematuria: Code(s): R31.29 - Other microscopic hematuria Plan MRI results were reviewed with the patient. We are going to obtain a CAT scan of the abdomen with and without IV contrast renal mass to see if we can get more information regarding what the lesion is doing. CAT scan to be scheduled. Follow up in 8 weeks pending CAT scan results. Orders: Orders CT abdomen wo/w IV con Today N28.1 - Cyst of kidney, acquired, N28.89 - Other specified disorders of kidney and ureter AMB Urinalysis Automated Today Z13.9 - Encounter for screening, unspecified AMB Post Void Residual by ultrasound Today N39.8 - Other specified disorders of urinary system Patient Instructions: The patient had an opportunity to ask questions regarding treatment plan. All questions were answered. Imaging, Laboratory studies and physical exam results were discussed and reviewed in detail. No major barriers to understanding were identified. The patient expressed understanding and agreement with the above treatment plan. The patient is aware they should contact our office by phone for worsening of their current condition or the appearance of new symptoms. Compliance is encouraged with any medications and followup testing that is ordered. It is a privilege to be allowed the opportunity to participate in the urologic care of your patient. If you have any questions or concerns regarding treatment for the above conditions please do not hesitate to contact me. The office telephone contact is [phone]. This note is constructed in part using voice recognition software. While every effort has been made to ensure accuracy energy efficiency finance manager errors may have been included. Yours sincerely, Julio Benjamin MD Coding Level of Care Code New Pt Level 4 (34920) Diagnoses Complex renal cyst N28.1 Renal mass of unknown nature N28.89 Microscopic hematuria R31.29 CPT Codes Post Residual Void - PVR CPT Code: 84526-Ufjd Void Residual by ultrasound ([id number])
== END 2022-10-30 09:31 | disposition home or self-care (01) ==
PROVIDERS: PCP Physician Assistant; Visit Provider Urology
DX: N28.1 Cyst of kidney, acquired (principal); N28.89 Other specified disorders of kidney and ureter; R31.29 Other microscopic hematuria
CPT/HCPCS: 99204

== ENCOUNTER 2022-10-30 08:41 | Outpatient (REF) | payer MEDICARE, SELFPAY ==
[2022-10-30 16:53] LABS: Urine Cytology See Pathology rpt
== END 2022-10-30 08:42 | disposition home or self-care (01) ==
LOC: HO.LAB 08:41
PROVIDERS: PCP Physician Assistant; Visit Provider Urology
DX: N28.1 Cyst of kidney, acquired (principal); R31.29 Other microscopic hematuria; N28.89 Other specified disorders of kidney and ureter
CPT/HCPCS: 51798; 88112; 99202

== ENCOUNTER 2022-11-05 14:58 | Outpatient (AMB) | payer MEDICARE, SELFPAY ==
[2022-11-05 15:12] VITALS: BP 122/82; PULSE 73; BMI 27.2
--- NOTE | 2022-11-05 15:12 | A.OFFVIS_ITS ---
Intake Vital Signs 11/05/22 15:12 Height 5 ft 10 in Weight 189 lb 9.561 oz BMI 27.2 BP 122/82 Blood Pressure Location Lt brachial Position Sitting Pulse 73 Intake Visit Reasons: 1 year follow up Intake Note: 1 year follow-up with ekg feeling ok Museum Registrar Required: No Allergies No Known Allergies Allergy (Verified 10/30/22 08:57) Medication List - Last Reconciled 11/05/22 by Shine Marshall MD albuterol sulfate 90 mcg/actuation (Ventolin HFA) 1 puff inhalation QID 30 days aspirin (Adult Low Dose Aspirin) 81 mg PO DAILY citalopram 10 mg PO DAILY 30 days fluticasone propion-salmeterol 115-21 mcg/actuation (Advair HFA) 2 puffs inhalation BID 30 days hydrochlorothiazide 12.5 mg PO DAILY PRN lisinopril 40 mg PO DAILY lorazepam 0.5 mg PO BEDTIME PRN 10 days pantoprazole 40 mg PO DAILY rosuvastatin 20 mg PO DAILY 90 days spironolactone 25 mg PO DAILY HPI HPI Comments History of Present Illness Details Jeronimo comes for follow-up. He retired past spring. He has been doing well comes from cardiac perspective. Remains very active. Denies any exertional chest pain or shortness of breath. He is taking all his medication although LDL cholesterol remains in 110 range. He denies any symptoms of shortness of breath, orthopnea, PND. He is taking all his medications. He takes hydrochlorothiazide about once a week for unclear reasons. He denies any leg edema. [facility] Medical History CAD (coronary artery disease) HLD (hyperlipidemia) HTN (hypertension) Surgical History History of cystostomy History of nasal surgery History of shoulder surgery Hx of removal of cyst Family History Father CAD (coronary artery disease) Mother Healthy adult Brother Melanoma Social History Housing: House Alcohol intake: current Alcohol intake frequency: a few times a week Alcohol type: wine Patient Tobacco Use Status: Never used Tobacco e-Cigarette/Vaping Use: Never Used Second Hand Smoke Exposure: No service: No Current occupational status: retired Current occupation: Retired Cognitive needs: No Hearing needs: No Vision needs: Yes (glasses) Review of Systems Const Denies chills, Denies fatigue, Denies fever(s), Denies frequent falls, Denies weakness, Denies weight gain and Denies weight loss ENT Denies dizziness Card Denies chest pain, Denies leg edema, Denies lightheadedness, Denies palpitations, Denies dyspnea, Denies dyspnea on exertion, Denies orthopnea and Denies other (loss of consciousness) Resp Denies cough, Denies dyspnea and Denies dyspnea on exertion GI Denies hematochezia and Denies change in stool character Musc Denies abnormal gait, Denies muscle weakness, Denies numbness, Denies radiating pain into limb and Denies tingling Neuro Denies abnormal gait, Denies dizziness, Denies frequent falls, Denies numbness, Denies tingling and Denies weakness Endo Denies fatigue and Denies palpitations Physical Exam Vital Signs: Last Vital Signs Pulse 73 11/05/22 15:12 BP 122/82 11/05/22 15:12 BMI result Body Mass Index 27.2 Const General: cooperative, comfortable, no acute distress, alert and awake Nutritional Appearance: average body habitus Orientation/consciousness: patient oriented x3 Limitations: no limitations Neck Neck: Yes trachea midline, Yes supple and Yes no JVD Resp Effort & Inspection: normal respiratory effort Auscultation: clear to auscultation bilaterally and diminished lung sounds Cardio Jugular venous distension: no JVD Palpation: normal PMI Rate: regular rate Rhythm: regular rhythm Heart sounds: S1 normal heart sound present and S2 normal heart sound present GI Auscultation: normal bowel sounds Skin General skin exam: no rashes or lesions noted Neuro General: patient oriented x3 and no focal motor deficits Extrem General: Yes no clubbing, cyanosis or edema Psych Appearance: grossly normal Office Procedures EKG Details: EKG shows normal sinus rhythm normal EKG [id number], Complete Assessment & Plan Assessment & Plan (1) CAD (coronary artery disease): Code(s): I25.10 - Atherosclerotic heart disease of [place] coronary artery without angina pectoris Qualifiers: Coronary Disease-Associated Artery/Lesion type: [place] artery [place] vs. transplanted heart: [place] heart Associated angina: without angina Qualified Code(s): I25.10 - Atherosclerotic heart disease of [place] coronary artery without angina pectoris Plan: coronary artery disease, nonobstructive based on elevated coronary calcium score. Currently having no symptoms. No further testing is indicated although aggressive medical therapy is recommended. His LDL is not well optimized advised to increase his statin therapy. He is skeptical and wants to only increase Crestor from 20-30 mg. Will provide him a prescription for the same. Follow-up lipid panel in 3 months time along with CRP. Advised to call with any new symptoms. Continue aggressive vascular risk factor modification including aggressive blood pressure control. (2) HTN (hypertension): Code(s): I10 - Essential (primary) hypertension Qualifiers: Hypertension type: essential hypertension Qualified Code(s): I10 - Essential (primary) hypertension Plan: Hypertension which is currently well optimized as much improved since he has retired with less stressed. Continue current therapy. There is no role for hydrochlorothiazide therapy at this point time and this can be discontinued. Continue spironolactone, lisinopril therapy. Advised to monitor blood pressure at home maintain a log. Continue participate in stress mitigation strategies. Will follow up in the clinic in 1 year's time, sooner p.r.n.. Thank you for allowing me to partake in his care Medications: Changed From rosuvastatin 20 mg PO DAILY 90 days 90 tabs 3RF To rosuvastatin 30 mg (1.5 x 20 mg) PO DAILY 90 days 135 tabs 3RF Coding Level of Care Code Est Pt Level 4 (70897) Diagnoses CAD (coronary artery disease) I25.10 Coronary Disease-Associated Artery/Lesion type: [place] artery [place] vs. transplanted heart: [place] heart Associated angina: without angina HTN (hypertension) I10 Hypertension type: essential hypertension CPT Codes EKG - CPT: 65991-[id number], Complete ([id number])
== END 2022-11-05 15:43 | disposition home or self-care (01) ==
PROVIDERS: PCP Physician Assistant; Visit Provider Internal Medicine Cardiovascular Disease
DX: I25.10 Atherosclerotic heart disease of native coronary artery without angina pectoris (principal); I10 Essential (primary) hypertension
CPT/HCPCS: 93010; 99214

== ENCOUNTER → 2022-11-05 14:58 | Outpatient (BNVA) | payer MEDICARE, SELFPAY | PROVIDERS: PCP Physician Assistant; Visit Provider Internal Medicine Cardiovascular Disease | DX: I25.10 Atherosclerotic heart disease of native coronary artery without angina pectoris (principal); I10 Essential (primary) hypertension; Z79.899 Other long term (current) drug therapy | CPT/HCPCS: 93005; 99212 ==

== ENCOUNTER 2022-11-18 07:37 | Outpatient (REF) | payer MEDICARE, SELFPAY ==
[2022-11-18 10:35] LABS: Urine Cytology See Pathology rpt
[2022-11-18 11:07] LABS: Blood Urea Nitrogen 15 mg/dL (9-16); Estimated Glomerular Filt Rate > 60
== END 2022-11-18 07:38 | disposition home or self-care (01) ==
LOC: HO.10HDL 07:37
PROVIDERS: Visit Provider Urology
DX: R31.29 Other microscopic hematuria (principal); N28.1 Cyst of kidney, acquired
CPT/HCPCS: 36415; 82565; 84520; 88112

== ENCOUNTER 2022-11-27 13:30 | Outpatient (AMB) | payer MEDICARE, SELFPAY ==
--- NOTE | 2022-11-27 12:56 | A.OFFVIS_ITS ---
Intake Intake Visit Reasons: f/u Urine Cytology Results Intake Note: Patient presents today via telephone visit for a follow-up on Urine Cytology Results: Meds- None Allergies to Antibiotic- None Blood Thinner- Aspirin Professor Of Physical Education Required: No Accompanied by: Self / Same As Patient Allergies No Known Allergies Allergy (Verified 11/27/22 13:34) HPI HPI Comments History of Present Illness Details Lalo is a 66-year-old male who presents today via telephone visit for a follow-up on Urine Cytology Results. 11/27/2022? He was last seen by me on 10/30/2022. He has had MRI of the abdomen with and without contrast on 09/16/2022. I have discussed that repeat urine cytology was sent came back with atypical cells again; I have discussed DD for atypical urine cytology includes, urinary tract inflammation, infection, stones, as well as malignancy. He states that he is scheduled for CAT scan of the abdomen with and without IV contrast for 12/05/22. Review of charts: Last visit: 10/30/2022? Lalo is a 66-year-old male who presents to the clinic today for abnormal imaging of kidney/ureter. The patient had an MRI on 09/16/22 that noted a 1.6 x 1.7 cm lesion in the left kidney. Evaluation for enhancement is limited on this study. He is here for further evaluation. He states that he has a chronic history of hematuria. He has been followed for kidney cysts. He states that he had the recent imaging due to complaints of abdominal pain on his right side. Evaluation today?UA 10/30/22? Blood 10 Supa. Leukocytes: negative. Bladder scan PVR is 21. Review of labs 09/12/22 ? PSA 0.63. 10/11/20 ? PSA 0.72. 09/21/21?PSA 0.39. Plan:MRI results were reviewed with the patient. obtain a CAT scan of the abdomen with and without IV contrast .?? 11/27/2022?Plan: Due to persistent Atypical urine cytology and microscopic hematuria. I revise imaging from a CT of the abdomen to CT urogram. And change Follow up to office Cystoscopy. [facility] Medical History CAD (coronary artery disease) HLD (hyperlipidemia) HTN (hypertension) Surgical History History of cystostomy History of nasal surgery History of shoulder surgery Hx of removal of cyst Family History Father CAD (coronary artery disease) Mother Healthy adult Brother Melanoma Social History Housing: House Alcohol intake: current Alcohol intake frequency: a few times a week Alcohol type: wine Patient Tobacco Use Status: Never used Tobacco e-Cigarette/Vaping Use: Never Used Second Hand Smoke Exposure: No service: No Current occupational status: retired Current occupation: Retired Cognitive needs: No Hearing needs: No Vision needs: Yes (glasses) Review of Systems Const All systems reviewed & are unremarkable except as noted in HPI and below Reports no additional complaints Eyes Reports no additional complaints ENT Reports no additional complaints Card Denies dyspnea Resp Denies cough and Denies dyspnea GI Reports no additional complaints Musc Reports no additional complaints Skin/Breast Denies rash and Denies unusual bruising Neuro Reports no additional complaints Psych Reports no additional complaints Endo Reports no additional complaints Jose/Lymph Reports no additional complaints Aller/Immun Reports no additional complaints Results Reviewed Results Reviewed: Date of Service: 09/16/22 EXAMINATION: MR ABDOMEN WITHOUT AND WITH CONTRAST CLINICAL INFORMATION: Right upper quadrant pain. Follow-up liver lesion seen on ultrasound. Question change in appearance of hemangiomas. COMPARISON: Previous abdominal ultrasound March 2022 and liver MRI 2014? FINDINGS: LUNG BASES: The visualized lung bases are unremarkable.? LIVER, GALLBLADDER, AND BILIARY TREE: The liver is normal in size and contour. The liver loses signal on out of phase sequences suggestive of mild fatty infiltration. There are numerable, approximately 15 liver lesion seen. These are low signal on T1 and high signal on T2-weighted sequences. The majority of the lesions demonstrate peripheral puddling enhancement and are suggestive of benign hemangiomas. Liver lesions appear unchanged from 2015. No new liver lesion is seen. The gallbladder is unremarkable with no evidence of gallbladder wall thickening, or obvious pericholecystic inflammatory changes.? PANCREAS: Unremarkable.? SPLEEN: Normal.? ADRENAL GLANDS: Normal.? KIDNEYS AND URETERS: There is a 1.6 x 1.7 cm lesion exophytic to the lateral upper pole of the left kidney. This is high signal on T1-weighted sequences and low signal on T2-weighted sequences. Evaluation for enhancement is limited due to intrinsic bright T1 signal. This appears to demonstrate enhancement on early arterial phase imaging. Differential would include a papillary-type renal cell cancer versus complex proteinaceous or hemorrhagic cyst. This is increased in size from 8 mm on previous MRI exam. Biopsy is recommended. There is a 5 x 6.5 cm minimally complex cyst with several thin septations exophytic to the lower pole of the left kidney. This is unchanged. There is a small 3 to 4 mm low signal T1 and high signal T2 lesion in the anterior lower pole left kidney question representing a cyst. The right kidney is normal. GASTROINTESTINAL TRACT: No bowel obstruction.? No ascites or fluid collection.?? ABDOMINAL WALL: No significant hernia is appreciated.? LYMPH NODES: No lymphadenopathy. VASCULAR: Unremarkable. OSSEOUS STRUCTURES: Marrow signal normal.?? IMPRESSION: Mild fatty infiltration of the liver. Stable multiple liver hemangiomas. Increasing complex cyst versus solid lesion in the upper pole of the left kidney. Renal biopsy recommended. Assessment & Plan Assessment & Plan (1) Microscopic hematuria: Code(s): R31.29 - Other microscopic hematuria (2) Left kidney mass: Code(s): N28.89 - Other specified disorders of kidney and ureter (3) Renal mass of unknown nature: Code(s): N28.89 - Other specified disorders of kidney and ureter (4) Abnormal urine cytology: Code(s): R82.89 - Other abnormal findings on cytological and histological examination of urine Plan I changed? from a CT of the abdomen to CT urogram. Follow up office Cystoscopy. Orders: Orders CT urogram Today N28.89 - Other specified disorders of kidney and ureter, R31.29 - Other microscopic hematuria, R82.89 - Other abnormal findings on cytological and histological examination of urine Patient Instructions: The patient had an opportunity to ask questions regarding treatment plan. All questions were answered. Imaging, Laboratory studies and physical exam results were discussed and reviewed in detail. No major barriers to understanding were identified. The patient expressed understanding and agreement with the above treatment plan.? ? ? The patient is aware they should contact our office by phone for worsening of their current condition or the appearance of new symptoms. Compliance is encouraged with any medications and followup testing that is ordered.? ? ? It is a privilege to be allowed the opportunity to participate in the urologic care of your patient. If you have any questions or concerns regarding treatment for the above conditions please do not hesitate to contact me. The office telephone contact is [phone].? ? ? This note is constructed in part using voice recognition software. While every effort has been made to ensure accuracy printing machine mechanic errors may have been included.? ? ? Yours sincerely,? ? ? Julio Benjamin MD? Telehealth Telehealth Location of provider rendering services: practice address Location of patient: address on file Patient Identification confirmed using: Name, : Yes Telehealth method: video Patient verbally consented to treatment: Yes Patient verbally consented to billing insurance company: Yes Patient informed of any privacy concerns related to visit: Yes Minutes spent on Phone/Video with Pt.: 29 Coding Level of Care Code Tele New Pt Level 4 (05458) Diagnoses Microscopic hematuria R31.29 Left kidney mass N28.89 Renal mass of unknown nature N28.89 Abnormal urine cytology R82.89
== END 2022-11-27 14:45 | disposition home or self-care (01) ==
LOC: HO.HUSH 13:30
PROVIDERS: PCP Physician Assistant; Visit Provider Urology
DX: R31.29 Other microscopic hematuria (principal); N28.89 Other specified disorders of kidney and ureter; R82.89 Other abnormal findings on cytological and histological examination of urine
CPT/HCPCS: 99214

== ENCOUNTER → 2022-11-27 13:30 | Outpatient (BNVA) | payer MEDICARE, SELFPAY | PROVIDERS: PCP Physician Assistant; Visit Provider Urology ==

== ENCOUNTER 2022-12-05 08:09 | Outpatient (REF) | payer MEDICARE, SELFPAY ==
--- NOTE | ~2022-12-05 | CT_ITS ---
EXAMINATION: CT ABDOMEN AND PELVIS WITHOUT AND WITH CONTRAST CLINICAL INFORMATION: Microscopic hematuria. COMPARISON: MR abdomen dated 09/16/2022 and 10/06/2014; abdominal ultrasound dated 03/18/2022. TECHNIQUE: Noncontrast CT of the abdomen and pelvis is performed followed by split bolus contrast-enhanced images using 85 mL Omnipaque 350 contrast.? Postcontrast imaging is performed during the combined nephrogram and excretion phase. Sagittal and coronal reformatted images were obtained on the technologist's workstation for both the precontrast and postcontrast phases. This CT examination was performed using dose optimization techniques as appropriate, variously including the following: *Automated exposure control *Adjustment of mA and/or kV according to patient size (this includes techniques or standardized protocols for targeted exams where dose is matched to indication/reason for exam; i.e. extremities or head) *Use of iterative reconstruction technique DLP: 869 mGy-cm FINDINGS: LUNG BASES: There is mild bibasilar linear scar/subsegmental atelectasis. LIVER, GALLBLADDER, AND BILIARY TREE: The liver is normal in size and shape. Mild hepatic steatosis is redemonstrated. Previously documented hepatic hemangiomas are redemonstrated. No new focal hepatic lesion or biliary ductal dilatation is present. The gallbladder is unremarkable with no evidence of radiopaque gallstones, gallbladder wall thickening, or obvious pericholecystic inflammatory changes. PANCREAS: Unremarkable. SPLEEN: Unremarkable. ADRENAL GLANDS: Unremarkable. KIDNEYS AND URETERS: The kidneys are normal in size, shape, and attenuation. No hydronephrosis, hydroureter, or calculi seen. No perinephric stranding. At the upper pole of the left kidney (8:25), an 8 mm benign, simple cyst is redemonstrated. At the lower pole of the left kidney (3:30), a 6.6 cm low-attenuation cyst with septations is redemonstrated, with stable mildly complex (Bosniak 2) appearance. This is likely benign and requires no imaging follow-up. At the upper pole of the left kidney (3:14 and 8:23), a 1.8 cm nonenhancing hemorrhagic/proteinaceous cyst is redemonstrated, with precontrast Hounsfield value of 85.5 units and postcontrast Hounsfield value of 85.4 units. This is consistent with the MRI findings of 10/06/2014. BLADDER: There is diffuse bladder wall thickening to 7 mm. No bladder wall mass or calculus is seen. GASTROINTESTINAL TRACT: There is mild diverticulosis, without acute diverticulitis. No bowel obstruction, free intraperitoneal air or abscess is seen. There is no focal bowel wall thickening. The vermiform appendix appears normal. ABDOMINAL WALL: There are small fat-containing umbilical and left inguinal hernias. LYMPH NODES: There is mesenteric fat stranding. There are shotty, nonpathologically enlarged mesenteric lymph nodes. No sizable abdominopelvic lymphadenopathy is seen. VASCULAR: There is moderate aortoiliac atherosclerotic calcification. No abdominal aortic aneurysm is seen. PELVIC VISCERA: The prostate and seminal vessicles are unremarkable. OSSEUS STRUCTURES: There is multi-level thoracolumbar spondylosis. No acute or aggressive osseous abnormality is seen. CT/CT urogram IMPRESSION: 1. There is mild hepatic steatosis. Previously described hepatic hemangiomas are redemonstrated. 2. There are left renal cysts as detailed. These include a mildly complex (Bosniak 2) interpolar cyst, which require no imaging follow-up, together with a nonenhancing hemorrhagic cyst at the upper pole of the left kidney. 3. There is diffuse bladder wall thickening, suggesting possible cystitis. Recommend correlation with the patient's most recent urinalysis. 4. Subtle fat stranding of the central mesentery with numerous shotty lymph nodes seen, a deysi mesentery appearance. This has a broad differential which includes mesenteric adenitis. It has been described with lymphoma although typically there is a history of lymphoma or evidence of lymphadenopathy elsewhere, not seen on this patient. In the absence of symptoms, it is of uncertain etiology or clinical significance. If there is continued clinical concern, a follow-up CT scan could be obtained in 3-6 months. 5. There is mild diverticulosis, without acute diverticulitis. 6. There are small fat-containing umbilical and left inguinal hernias. 7. There is multi-level thoracolumbar spondylosis.
[2022-12-05] MEDS: iohexoL 350 MG/ML 100 ML INFUS..BTL 85 ML IV (09:21)
== END 2022-12-05 08:10 | disposition home or self-care (01) ==
LOC: HO.CT 08:09
PROVIDERS: PCP Physician Assistant; Visit Provider Urology
DX: N28.89 Other specified disorders of kidney and ureter (principal); R31.29 Other microscopic hematuria; R82.89 Other abnormal findings on cytological and histological examination of urine
CPT/HCPCS: 74178; Q9967

== ENCOUNTER 2023-01-01 08:20 | Outpatient (REF) | payer MEDICARE, SELFPAY | END 2023-01-01 08:21 | disposition home or self-care (01) | LOC: HO.LAB 08:20 | PROVIDERS: PCP Physician Assistant; Visit Provider Urology | DX: C67.9 Malignant neoplasm of bladder, unspecified (principal); R31.29 Other microscopic hematuria; R82.89 Other abnormal findings on cytological and histological examination of urine; N28.1 Cyst of kidney, acquired; N40.1 Benign prostatic hyperplasia with lower urinary tract symptoms | CPT/HCPCS: 52000; 81003; 88121 ==

== ENCOUNTER 2023-01-01 08:20 | Outpatient (AMB) | payer MEDICARE, SELFPAY ==
--- NOTE | 2023-01-01 08:22 | A.OFFVIS_ITS ---
Intake Intake Visit Reasons: 8w/CT Intake Note: Patient presents today for a CYSTOSCOPY Procedure: Meds: None Allergies to Antibiotic: No Known Allergies Blood Thinner: Aspirin Urinalysis test clear for Cysto yes Disposable Uro-G Cystoscope Cannula: Lot: [id number] Exp: 08/25/2024 Allergies No Known Allergies Allergy (Verified 01/01/23 08:40) HPI HPI Comments History of Present Illness Details Lalo is a 67-year-old male who presents today to the office for a follow-up. 01/01/2023? He is followed today for cystoscopy procedure. He was last seen by me on 11/27/2022 due to abnormal urine cytology results. Patient states that he noticed mild discomfort while urination. He denies any other urinary symptoms at this time. Review of his chart noted a prior MRI 09/16/22 that noted a 1.6 x 1.7 cm lesion in the left kidney. Evaluation for enhancement was limited on this study. The patient was advised to follow-up for office Cystoscopy during that time and CT Urogram was discussed for further evaluation. I reviewed the CT urogram results from 12/05/2022 ? There are left renal cysts. including a 6.6 cm low-attenuation cyst with septations with stable mildly complex (Bosniak 2) appearance. radiologist reported as c/w with benign and requires no imaging follow-up. At the upper pole of the left kidney also a 1.8 cm nonenhancing hemorrhagic/proteinaceous cyst. There is diffuse bladder wall thickening, suggesting possible cystitis. Review of charts: Last visit: 11/27/2022? He was last seen by me on 10/30/2022. He has had MRI of the abdomen with and without contrast on 09/16/2022.? I have discussed that repeat urine? cytology was sent? came back with? atypical cells again;? I have discussed DD for atypical urine cytology includes, urinary tract inflammation, infection, stones, as well as malignancy. He states that he is scheduled for CAT scan of the abdomen with and without IV contrast for 12/05/22. OV: 10/30/2022? Lalo is a 66-year-old male who presents to the clinic today for abnormal imaging of kidney/ureter. The patient had an MRI on 09/16/22 that noted a 1.6 x 1.7 cm lesion in the left kidney. Evaluation for enhancement is limited on this study. He is here for further evaluation. He states that he has a chronic history of hematuria. He has been followed for kidney cysts. He states that he had the recent imaging due to complaints of abdominal pain on his right side. Evaluation today?UA 10/30/22? Blood 10 Supa. Leukocytes: negative. Bladder scan PVR is 21. Review of labs 09/12/22 ? PSA 0.63. 10/11/20 ? PSA 0.72. 09/21/21?PSA 0.39. 01/01/2023: Evaluation today?UA? luekocy stephany: negative; blood: trace. Cystoscopy procedure Consent was obtained to perform cystoscopy procedure. Cystoscopy findings: bladder wall thickening noted; no suspicious bladder lesions noted. 01/01/2023: Plan: Ordered alfusozin 10 mg daily. Will send urine for FISH test. Follow-up in 3 months. [facility] Medical History HTN (hypertension) HLD (hyperlipidemia) CAD (coronary artery disease) Surgical History Hx of removal of cyst History of cystostomy History of shoulder surgery History of nasal surgery Family History Father CAD (coronary artery disease) Mother Healthy adult Brother Melanoma Social History Housing: House Alcohol intake: current Alcohol intake frequency: a few times a week Alcohol type: wine Patient Tobacco Use Status: Never used Tobacco e-Cigarette/Vaping Use: Never Used Second Hand Smoke Exposure: No service: No Current occupational status: retired Current occupation: Retired Cognitive needs: No Hearing needs: No Vision needs: Yes (glasses) Office Procedures Cystoscopy Consent Discussed risk and benefit or proposed procedure with the patient. Information consent for procedure given to the patient. Discussed technical aspects, risks, benefits and alternatives in full. Addressed all of the patient's questions and concerns regarding the procedure. The patient demonstrated knowledge and understanding. They wish to proceed with this procedure. Preparation The patient was prepped in the usual manner. A associate professor of economics was present and in the room. Genitalia was prepped with betadine solution in a sterile manner. Lidocaine Jelly 2% was placed into the urethra and 16Fr flexible Olympus cystoscope was inserted into the meatus after adequate lubrication. Procedure Time out per protocol performed. Bladder Inspection Bladder Inspection: The bladder was inspected in its entirety with utilization retroflexion displaying: Tumor(s): none visualized Trabeculation: moderate Mucosal Erthema: N/A Orifices: normal shape and position Urethra: normal Cystoscopy findings: prostatic urethra bilobar enlargement, bulbous urethra WNL, no suspicious bladder lesions visualized [id number] DISPOSABLE SCOPE URO-G FLEXIBLE SCOPE Procedure code (CPT) selection complete Office Meds lidocaine HCl 2 % mucosal jelly in applicator Performing Provider: Julio Benjamin MD Performing Location: [facility] Administered by: Manpreet Matias RN on 01/01/23 08:50 Dose Route Admin Location Dispensed Lot Number Expiration Date ND Key Punch Operator 10 mL intra-urethral 10 mL naproxen 500 mg tablet Performing Provider: Julio Benjamin MD Performing Location: [facility] Administered by: Manpreet Matias RN on 01/01/23 08:50 Dose Route Admin Location Dispensed Lot Number Expiration Date NDC Key Punch Operator 500 mg PO 1 tab ciprofloxacin HCl 500 mg tablet Performing Provider: Julio Benjamin MD Performing Location: [facility] Administered by: Manpreet Matias RN on 01/01/23 08:50 Dose Route Admin Location Dispensed Lot Number Expiration Date NDC Key Punch Operator 500 mg PO 1 tab Results AMB Urinalysis, Automated UA Leukoctes 0 Gilmer/uL Last Edit by SANDRA Chua on 01/01/23 08:46 UA Nitrite Negative Last Edit by SANDRA Chua on 01/01/23 08:46 UA Urobilinogen 0.2 mg/dL Last Edit by Lit Marti A on 01/01/23 08:4 6 UA Protein 0 mg/dL Last Edit by Lit Marti A on 01/01/23 08:46 UA pH 6.0 Last Edit by Lit Marti A on 01/01/23 08:46 UA Blood 10 Supa/uL Last Edit by Lit Marti A on 01/01/23 08:46 UA Specific [place] 1.015 Last Edit by Lit Marti A on 01/01/23 08: 46 UA Ketone Negative Last Edit by Lit Marti [facility] on 01/01/23 08:46 UA Bilirubin 0 mg/dL Last Edit by Lit Marti A on 01/01/23 08:46 UA Glucose 0 mg/dL Last Edit by Lit Marti [facility] on 01/01/23 08:46 Results Reviewed Results Reviewed: Laboratory Last Values Urine pH (Auto) 6.0 01/01/23 08:44 Specific [place] (Auto) 1.015 01/01/23 08:44 Urine Protein (Auto) 0 mg/dL 01/01/23 08:44 Glucose (UA)(Auto) 0 mg/dL 01/01/23 08:44 Urine Ketones (Auto) Negative 01/01/23 08:44 Urine Blood (Auto) 10 Supa/uL 01/01/23 08:44 Urine Nitrite (Auto) Negative 01/01/23 08:44 Urine Bilirubin (Auto) 0 mg/dL 01/01/23 08:44 Urine Urobilinogen (Auto) 0.2 mg/dL 01/01/23 08:44 Leukocyte Esterase (Auto) 0 Gilmer/uL 01/01/23 08:44 Date of Service: 12/05/22 EXAMINATION: CT ABDOMEN AND PELVIS WITHOUT AND WITH CONTRAST?? CLINICAL INFORMATION: Microscopic hematuria.?? COMPARISON: MR abdomen dated 09/16/2022 and 10/06/2014; abdominal ultrasound dated 03/18/2022.? ?? FINDINGS: LUNG BASES: There is mild bibasilar linear scar/subsegmental atelectasis.?? LIVER, GALLBLADDER, AND BILIARY TREE: The liver is normal in size and shape. Mild hepatic steatosis is redemonstrated. Previously documented hepatic hemangiomas are redemonstrated. No new focal hepatic lesion or biliary ductal dilatation is present. The gallbladder is unremarkable with no evidence of radiopaque gallstones, gallbladder wall thickening, or obvious pericholecystic inflammatory changes.?? PANCREAS: Unremarkable.?? SPLEEN: Unremarkable.?? ADRENAL GLANDS: Unremarkable.?? KIDNEYS AND URETERS: The kidneys are normal in size, shape, and attenuation. No hydronephrosis, hydroureter, or calculi seen. No perinephric stranding.? At the upper pole of the left kidney (8:25), an 8 mm benign, simple cyst is redemonstrated. At the lower pole of the left kidney (3:30), a 6.6 cm low-attenuation cyst with septations is redemonstrated, with stable mildly complex (Bosniak 2) appearance. This is likely benign and requires no imaging follow-up. At the upper pole of the left kidney (3:14 and 8:23), a 1.8 cm nonenhancing hemorrhagic/proteinaceous cyst is redemonstrated, with precontrast Hounsfield value of 85.5 units and postcontrast Hounsfield value of 85.4 units. This is consistent with the MRI findings of 10/06/2014. BLADDER: There is diffuse bladder wall thickening to 7 mm. No bladder wall mass or calculus is seen.?? GASTROINTESTINAL TRACT: There is mild diverticulosis, without acute diverticulitis. No bowel obstruction, free intraperitoneal air or abscess is seen. There is no focal bowel wall thickening. The vermiform appendix appears normal.?? ABDOMINAL WALL: There are small fat-containing umbilical and left inguinal hernias.?? LYMPH NODES: There is mesenteric fat stranding. There are shotty, nonpathologically enlarged mesenteric lymph nodes. No sizable abdominopelvic lymphadenopathy is seen. VASCULAR: There is moderate aortoiliac atherosclerotic calcification. No abdominal aortic aneurysm is seen. PELVIC VISCERA: The prostate and seminal vessicles are unremarkable.?? OSSEUS STRUCTURES: There is multi-level thoracolumbar spondylosis. No acute or aggressive osseous abnormality is seen.?? IMPRESSION: 1. There is mild hepatic steatosis. Previously described hepatic hemangiomas are redemonstrated. ?2. There are left renal cysts as detailed. These include a mildly complex (Bosniak 2) interpolar cyst, which require no imaging follow-up, together with a nonenhancing hemorrhagic cyst at the upper pole of the left kidney. 3. There is diffuse bladder wall thickening, suggesting possible cystitis. Recommend correlation with the patient's most recent urinalysis. 4. Subtle fat stranding of the central mesentery with numerous shotty lymph nodes seen, a deysi mesentery appearance. This has a broad differential which includes mesenteric adenitis. It has been described with lymphoma although typically there is a history of lymphoma or evidence of lymphadenopathy elsewhere, not seen on this patient. In the absence of symptoms, it is of uncertain etiology or clinical significance. If there is continued clinical concern, a follow-up CT scan could be obtained in 3-6 months. 5. There is mild diverticulosis, without acute diverticulitis. 6. There are small fat-containing umbilical and left inguinal hernias. 7. There is multi-level thoracolumbar spondylosis. Assessment & Plan Assessment & Plan (1) Microscopic hematuria: Code(s): R31.29 - Other microscopic hematuria (2) Abnormal urine cytology: Code(s): R82.89 - Other abnormal findings on cytological and histological examination of urine (3) Complex renal cyst: Code(s): N28.1 - Cyst of kidney, acquired (4) BPH loc w urin obs/LUTS: Code(s): N40.1 - Benign prostatic hyperplasia with lower urinary tract symptoms Plan Ordered alfusozin 10 mg daily. Will send urine for FISH test. Follow-up in 3 months. Orders: Orders AMB Urinalysis Automated 01/01/23 Z13.9 - Encounter for screening, unspecified AMB Cystoscopy 01/01/23 R82.89 - Other abnormal findings on cytological and histological examination of urine, R31.29 - Other microscopic hematuria FISH Bladder Cancer 01/01/23 C67.9 - Malignant neoplasm of bladder, unspecified Patient Instructions: The patient had an opportunity to ask questions regarding treatment plan. All questions were answered. Imaging, Laboratory studies and physical exam results were discussed and reviewed in detail. No major barriers to understanding were identified. The patient expressed understanding and agreement with the above treatment plan.? ? ? The patient is aware they should contact our office by phone for worsening of their current condition or the appearance of new symptoms. Compliance is encouraged with any medications and followup testing that is ordered.? ? ? It is a privilege to be allowed the opportunity to participate in the urologic care of your patient. If you have any questions or concerns regarding treatment for the above conditions please do not hesitate to contact me. The office telephone contact is [phone].? ? ? This note is constructed in part using voice recognition software. While every effort has been made to ensure accuracy loom setter errors may have been included.? ? ? Yours sincerely,? ? ? Julio Benjamin MD? ? Coding Level of Care Code Est Pt Level 3 (17776) Diagnoses Microscopic hematuria R31.29 Abnormal urine cytology R82.89 Complex renal cyst N28.1 BPH loc w urin obs/LUTS N40.1 CPT Codes Cystoscopy - CPT: [id number] ([id number])
== END 2023-01-01 09:55 | disposition home or self-care (01) ==
PROVIDERS: PCP Physician Assistant; Visit Provider Urology
DX: R82.89 Other abnormal findings on cytological and histological examination of urine (principal); R31.29 Other microscopic hematuria; Z13.9 Encounter for screening, unspecified
CPT/HCPCS: 52000

== ENCOUNTER → 2023-01-29 12:41 | Outpatient (BNVA) | payer MEDICARE, SELFPAY | PROVIDERS: PCP Physician Assistant; Visit Provider Nurse Practitioner | DX: I25.10 Atherosclerotic heart disease of native coronary artery without angina pectoris (principal); I10 Essential (primary) hypertension | CPT/HCPCS: 99212 ==

== ENCOUNTER → 2023-01-29 12:41 | Outpatient (AMB) | payer MEDICARE, SELFPAY ==
[2023-01-29 12:55] VITALS: BP 116/62; PULSE 74; O2SAT 96; BMI 27.5
--- NOTE | 2023-01-29 12:55 | A.OFFVIS_ITS ---
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 Accompanied by: self Allergies No Known Allergies Allergy (Verified 01/29/23 13:09) Medication List - Last Reconciled 01/29/23 by Bety Hernandez NP albuterol sulfate 90 mcg/actuation (Ventolin HFA) 1 puff inhalation QID 30 days [ALFUZOSIN ER 10MG TABLETS 1 tab PO DAILY] aspirin (Adult Low Dose Aspirin) 81 mg PO DAILY citalopram 10 mg PO DAILY 90 days fluticasone propion-salmeterol 115-21 mcg/actuation (Advair HFA) 2 puffs inhalation BID 30 days lisinopril 40 mg PO DAILY lorazepam 0.5 mg PO BEDTIME PRN 10 days pantoprazole 40 mg PO DAILY 90 days rosuvastatin 30 mg (1.5 x 20 mg) PO DAILY 90 days spironolactone 25 mg PO DAILY HPI HPI Comments History of Present Illness Details 67-year-old male presents today for a re quested follow-up. He had a sen sation about 2 weeks ago that he describes as a throbbing sensation in his head, forehead, and teeth. He had recently come off his Celexa and it the sensation stopped after restarting Celexa. He was concerned and wanted to discuss this. He denies chest pain, shortness of breath, fluttering, or swelling in his extremities. He reports he will occasionally get a blood pressure in the 140s systolic but overall his blood pressures have been 120s systolic. He reports going for walks and doing the recumbent bike 3 or more times a week without any symptoms. [facility] Medical History HTN (hypertension) HLD (hyperlipidemia) CAD (coronary artery disease) Surgical History Hx of removal of cyst History of cystostomy History of shoulder surgery History of nasal surgery Family History Father CAD (coronary artery disease) Mother Healthy adult Brother Melanoma Social History Housing: House Alcohol intake: current Alcohol intake frequency: a few times a week Alcohol type: wine Patient Tobacco Use Status: Never used Tobacco e-Cigarette/Vaping Use: Never Used Second Hand Smoke Exposure: No service: No Current occupational status: retired Current occupation: Retired Cognitive needs: No Hearing needs: No Vision needs: Yes (glasses) Review of Systems Const Denies chills, Denies fatigue, Denies fever(s), Denies frequent falls, Denies weakness, Denies weight gain and Denies weight loss ENT Denies dizziness Card Denies chest pain, Denies chest pain with activity, Denies syncope, Denies rapid heart rate, Denies pedal edema, Denies irregular heart rhythm, Denies leg edema, Denies lightheadedness, Denies palpitations, Denies dyspnea, Denies dyspnea on exertion, Denies orthopnea and Denies other (LOC) Resp Denies cough, Denies dyspnea and Denies dyspnea on exertion GI Denies hematochezia and Denies change in bowel habits Musc Denies abnormal gait, Denies arthralgias, Denies muscle weakness, Denies numbness, Denies radiating pain into limb and Denies tingling Neuro Denies abnormal gait, Denies dizziness, Denies syncope, Denies frequent falls, Denies numbness, Denies tingling and Denies weakness Endo Denies fatigue and Denies palpitations Physical Exam Const General: healthy appearing and no acute distress Orientation/consciousness: patient oriented x3 HEENT Head: Yes normal to inspection Eyes General: appearance normal, both eyes and all related structures Neck Neck: Yes normal visual inspection Chest Chest palpation & inspection: normal inspection of the chest Resp Effort & Inspection: normal respiratory effort Auscultation: clear to auscultation bilaterally Cardio Jugular venous distension: no JVD Palpation: normal PMI Rate: regular rate Rhythm: regular rhythm Heart sounds: S1 normal heart sound present, S2 normal heart sound present, no click, no gallops, no murmurs and no rubs GI Inspection: Yes normal to inspection Palpation (GI): Soft to palpation Skin General skin exam: no rashes or lesions noted Neuro General: patient oriented x3 Extrem General: Yes normal to inspection Psych Appearance: grossly normal Assessment & Plan Assessment & Plan (1) HTN (hypertension): Code(s): I10 - Essential (primary) hypertension Qualifiers: Hypertension type: essential hypertension Qualified Code(s): I10 - Essential (primary) hypertension (2) CAD (coronary artery disease): Code(s): I25.10 - Atherosclerotic heart disease of [place] coronary artery without angina pectoris Qualifiers: Coronary Disease-Associated Artery/Lesion type: [place] artery [place] vs. transplanted heart: [place] heart Associated angina: without angina Qualified Code(s): I25.10 - Atherosclerotic heart disease of [place] coronary artery without angina pectoris Plan Blood pressure today in goal. Advised to continue all medications at this time. Continue heart healthy diet and exercising. Report any new symptoms. Monitor blood pressure periodically. Follow-up as planned with Dr Marshall. Coding Level of Care Code Est Pt Level 3 (32346) Diagnoses Essential hypertension I10 Hypertension type: essential hypertension Coronary artery disease involving [place] coronary artery of [place] heart without angina pectoris I25.10 Coronary Disease-Associated Artery/Lesion type: [place] artery [place] vs. transplanted heart: [place] heart Associated angina: without angina
== END ==
PROVIDERS: PCP Physician Assistant; Visit Provider Nurse Practitioner
DX: I10 Essential (primary) hypertension (principal); I25.10 Atherosclerotic heart disease of native coronary artery without angina pectoris
CPT/HCPCS: 99213

== ENCOUNTER 2023-05-02 10:24 | Outpatient (AMB) | payer MEDICARE, SELFPAY ==
--- NOTE | 2023-05-02 10:24 | A.OFFVIS_ITS ---
Intake Intake Visit Reasons: 4m follow up (set) Intake Note: Patient presents today for a follow up, telehealth. 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 Lalo is being evaluated due to BPH, hematuria, atypical cytology and renal cysts. The patient had urine FISH sent from urine specimen 01/01/2023. I reviewed with the patient that results came back negative. I want him to continue alfuzosin follow-up in 9 months. Review of charts: 01/01/2023? He is followed today for cystoscopy procedure. He was last seen by me on 11/27/2022 due to abnormal urine cytology results. Patient states that he noticed mild discomfort while urination. He denies any other urinary symptoms at this time. Review of his chart noted a prior MRI 09/16/22 that noted a 1.6 x 1.7 cm lesion in the left kidney. Evaluation for enhancement was limited on this study. The patient was advised to follow-up for office Cystoscopy during that time and CT Urogram was discussed for further evaluation. I reviewed the CT urogram results from 12/05/2022 ? There are left renal cysts. including a 6.6 cm low-attenuation cyst with septations with stable mildly complex (Bosniak 2) appearance. radiologist reported as c/w with benign and requires no imaging follow-up. At the upper pole of the left kidney also a 1.8 cm nonenhancing hemorrhagic/proteinaceous cyst. There is diffuse bladder wall thickening, suggesting possible cystitis. Evaluation today?UA? luekocytes: negative; blood: trace. Cystoscopy procedure Consent was obtained to perform cystoscopy procedure. Cystoscopy findings: bladder wall thickening noted; no suspicious bladder lesions noted. 11/27/2022? He was last seen by me on 10/30/2022. He has had MRI of the abdomen with and without contrast on 09/16/2022.? I have discussed that repeat urine? cytology was sent? came back with? atypical cells again;? I have discussed DD for atypical urine cytology includes, urinary tract inflammation, infection, stones, as well as malignancy. He states that he is scheduled for CAT scan of the abdomen with and without IV contrast for 12/05/22. 10/30/2022? Lalo is a 66-year-old male who presents to the clinic today for abnormal imaging of kidney/ureter. The patient had an MRI on 09/16/22 that noted a 1.6 x 1.7 cm lesion in the left kidney. Evaluation for enhancement is limited on this study. He is here for further evaluation. He states that he has a chronic history of hematuria. He has been followed for kidney cysts. He states that he had the recent imaging due to complaints of abdominal pain on his right side. Evaluation today?UA 10/30/22? Blood 10 Supa. Leukocytes: negative. Bladder scan PVR is 21. Review of labs 09/12/22 ? PSA 0.63. 10/11/20 ? PSA 0.72. 09/21/21?PSA 0.39. 05/02/23: Plan: Cont alfusozin 10 mg daily. Monitor urine, monitor kidneys FU in 9 months with renal US [facility] Medical History HTN (hypertension) HLD (hyperlipidemia) CAD (coronary artery disease) Surgical History Hx of removal of cyst History of cystostomy History of shoulder surgery History of nasal surgery Family History Father CAD (coronary artery disease) Mother Healthy adult Brother Melanoma Social History Housing: House Alcohol intake: current Alcohol intake frequency: a few times a week Alcohol type: wine Patient Tobacco Use Status: Never used Tobacco e-Cigarette/Vaping Use: Never Used Second Hand Smoke Exposure: No service: No Current occupational status: retired Current occupation: Retired Cognitive needs: No Hearing needs: No Vision needs: Yes (glasses) Review of Systems Const All systems reviewed & are unremarkable except as noted in HPI and below Reports no additional complaints Eyes Reports no additional complaints ENT Reports no additional complaints Card Denies dyspnea Resp Denies cough and Denies dyspnea GI Reports no additional complaints Musc Reports no additional complaints Skin/Breast Denies rash and Denies unusual bruising Neuro Reports no additional complaints Psych Reports no additional complaints Endo Reports no additional complaints Jose/Lymph Reports no additional complaints Aller/Immun Reports no additional complaints Results Reviewed Results Reviewed: 01/01/23 STATUS: COMP REQ : [id number] RECD: 01/01/[address]: Julio Benjamin MD COMP: 01/08/23 ENTERED: 01/01/[address]: David Madden PA-C ORDERED: FISH Bladder Ca Test Result Flag Reference FISH Bladder Ca see note Order ID: [id number] Specimen Type: Urine Clinical Indication: NOT GIVEN RESULT: NEGATIVE RESULT FOR THE UROVYSION FISH ASSAY Assessment & Plan Assessment & Plan (1) Microscopic hematuria: Code(s): R31.29 - Other microscopic hematuria (2) Abnormal urine cytology: Code(s): R82.89 - Other abnormal findings on cytological and histological examination of urine (3) Complex renal cyst: Code(s): N28.1 - Cyst of kidney, acquired (4) BPH loc w urin obs/LUTS: Code(s): N40.1 - Benign prostatic hyperplasia with lower urinary tract symptoms Plan Cont alfusozin 10 mg daily. Monitor urine, monitor kidneys FU in 9 months with renal US Patient Instructions: The patient had an opportunity to ask questions regarding treatment plan. All questions were answered. Imaging, Laboratory studies and physical exam results were discussed and reviewed in detail. No major barriers to understanding were identified. The patient expressed understanding and agreement with the above treatment plan. The patient is aware they should contact our office by phone for worsening of their current condition or the appearance of new symptoms. Compliance is encouraged with any medications and followup testing that is ordered. It is a privilege to be allowed the opportunity to participate in the urologic care of your patient. If you have any questions or concerns regarding treatment for the above conditions please do not hesitate to contact me. The office t elephone contact is [phone]. This note is constructed in part using voice recognition software. While every effort has been made to ensure accuracy child welfare specialist errors may have been included. Yours sincerely, Julio Benjamin MD Coding Level of Care Code Tele Est Pt Level 3 (29794) Diagnoses Microscopic hematuria R31.29 Abnormal urine cytology R82.89 Complex renal cyst N28.1 BPH loc w urin obs/LUTS N40.1
== END 2023-05-02 12:00 | disposition home or self-care (01) ==
LOC: HO.HUSH 10:24
PROVIDERS: PCP Physician Assistant; Visit Provider Urology
DX: R31.29 Other microscopic hematuria (principal); R82.89 Other abnormal findings on cytological and histological examination of urine; N28.1 Cyst of kidney, acquired; N40.1 Benign prostatic hyperplasia with lower urinary tract symptoms
CPT/HCPCS: 99442

== ENCOUNTER → 2023-05-02 10:24 | Outpatient (BNVA) | payer MEDICARE, SELFPAY | PROVIDERS: PCP Physician Assistant; Visit Provider Urology ==

== ENCOUNTER 2023-09-17 08:36 | Outpatient (REF) | payer MEDICARE, SELFPAY ==
[2023-09-17 10:45] LABS: Hematocrit 44.2 % (42.0-52.0); Hemoglobin 15.9 g/dl (14.0-18.0); Mean Corpuscular Hemoglobin 31.9 pg (27.0-33.0); Mean Corpuscular Volume 88.8 fL (80.0-98.0); Mean Platelet Volume 8.9 fL (9.4-12.4); Platelet Count 308 X10*3/uL (160-400); Red Blood Count 4.98 X10*6/uL (4.60-5.80); Red Cell Distribution Width 11.2 % (11.0-16.0); White Blood Count 6.6 X10*3/uL (4.8-10.8)
[2023-09-17 10:54] LABS: Alanine Aminotransferase 24 U/L (0-40); Albumin Level 4.3 g/dL (3.5-5.0); Alkaline Phosphatase 61 U/L (39-117); Anion Gap 13 (12-20); Aspartate Amino Transferase 18 U/L (5-37); Bilirubin Total 0.8 mg/dL (0.0-1.0); Blood Urea Nitrogen 18 mg/dL (9-16); Calcium 9.9 mg/dL (8.4-10.2); Carbon Dioxide 27 mmol/L (22-29); Chloride 105 mmol/L (96-108); Cholesterol 176 mg/dL (<200); Estimated Glomerular Filt Rate > 60; Glucose Fasting 122 mg/dL (60-99); HDL Cholesterol 43 mg/dL (>40); LDL Cholesterol Calculated 103 mg/dL (<100); Potassium 4.1 mmol/L (3.3-5.1); Sodium 141 mmol/L (135-145); Triglycerides 150 mg/dL (<150)
[2023-09-17 11:15] LABS: Prostate Specific Antigen Scr 0.46 ng/mL (<0.05-4.0)
[2023-09-17 11:38] LABS: Creatinine Urine 74.84 mg/dL; Microalbumin Urine < 5.0 mg/L
== END 2023-09-17 08:37 | disposition home or self-care (01) ==
LOC: HO.10HDL 08:36
PROVIDERS: Visit Provider Physician Assistant
DX: J43.9 Emphysema, unspecified (principal); I10 Essential (primary) hypertension; E78.2 Mixed hyperlipidemia; Z12.5 Encounter for screening for malignant neoplasm of prostate
CPT/HCPCS: 36415; 80053; 80061; 82043; 82570; 84153; 85027

== ENCOUNTER 2023-09-23 07:51 | Outpatient (AMB) | payer MEDICARE, SELFPAY ==
[2023-09-23 08:03] VITALS: BP 124/70; PULSE 64; O2SAT 98; BMI 27.4
--- NOTE | 2023-09-23 08:03 | MHC.PC.OV ---
Vital Signs 09/23/23 08:03 Height 5 ft 10 in Weight 191 lb BMI 27.4 BP 124/70 Blood Pressure Location Lt brachial Position Sitting Pulse 64 Pulse Source Pulse Oximeter Pulse Oximetry (%) 98 Oxygen Delivery Method Room Air Intake Visit Reasons: pe Allergies fire ants Allergy (Severe, Uncoded 09/23/23 08:11) Anaphylaxis Medication List - Last Reconciled 09/23/23 by David Madden PA-C albuterol sulfate 90 mcg/actuation (Ventolin HFA) 1 puff inhalation QID 30 days [ALFUZOSIN ER 10MG TABLETS 1 tab PO DAILY] aspirin (Adult Low Dose Aspirin) 81 mg PO DAILY citalopram 10 mg PO DAILY 90 days fluticasone propion-salmeterol 115-21 mcg/actuation (Advair HFA) 2 puffs inhalation BID 30 days lisinopril 40 mg PO DAILY lorazepam 0.5 mg PO BEDTIME PRN 10 days pantoprazole 40 mg PO DAILY 90 days rosuvastatin 30 mg (3 x 10 mg) PO DAILY 90 days spironolactone 25 mg PO DAILY Tobacco use date assessed: 09/23/23 Fall risk assessment: No Falls in past year Last assessed Fall Risk: 09/23/23 Dental Screening Dental Screen Date: 09/23/23 Did you have a dental visit in the last 12 months?: Yes Did you have a dental problem in the last 6 months where you did not have access to dental care?: No Was dental information given to patient?: Patient has dentist HPI pe HPI Details ?Jeronimo is a? 67-year-old male here today for routine physical. ? Pmhx significant for Asthma, HTN, CAD, GERD, anxiety, bladder cystitis Concern: Reports he still has some shortness of breath only an early mornings. Does use his albuterol inhaler and Advair inhaler which have been helpful. He reports albuterol inhaler causes some side effects. He would like to continue Advair inhaler and daily basis for maintenance for better control over his asthma/ COPD symptoms. Alcohol intake:? He does admit to drinking 2-3 glasses wine per day and does understand this may be a problem.? He will try to reduce the amount of alcohol use in takes. .. mild COPD:? He reports his breathing and shortness of breath have been better since he has been more physically active. He does use a albuterol inhaler on a p.r.n. basis which does help him with his breathing and chest tightness.? He does report being a former smoker and drug abuser.? .. ? HTN: Reports his blood pressure has been stable at home, reports his blood pressure was 130/80 today. He does report having multiple blood pressures at 140/90.? He reports he has been more physically active lately since he has been home.? Continues on lisinopril and hydrochlorothiazide with good effect. ? 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 alternative blood pressure medication. .. Coronary artery disease:? Is followed by Cardiology and had a calcium score in the past that was elevated.? Patient denies any chest discomfort or palpitations.? Does have complaints of shortness of breath likely related to his asthma which may be allergy induced.? Is continuing on allergy shots. Most recently LDL 03 He was asked to increase his rosuvastatin to 20 mg though he is not comfortable with this at this time and will speak with railroad yard worker.? Okay continues to take half a tablet daily. .. Complex renal cyst: Has been found to have microscopic hematuria, followed by [place] [facility]. Did undergo a cystoscopy which was essentially stable. Continues on surveillance imaging. ?? Vaccines he has received COVID vaccine , Needs Td , unclear he has had varicella infection as a child. Willing to get pneumonia vaccine today Colonoscopy:? Done in 2013 hyperplastic polyp found repeat 10 years. Laboratory Tests 09/17/23 08:40 RBC 4.98 Creatinine 0.97 Fasting Glucose 122 H Cholesterol 176 LDL Cholesterol, C alc 103 H PSA Screen 0.46 Urine Microalbumin < 5.0 Laboratory Tests 03/12/22 09/12/22 09/12/22 08:00 07:58 07:58 RBC 5.16 Creatinine 0.96 Fasting Glucose 121 H Cholesterol 195 LDL Cholesterol, C alc 127 119 PFSH Medical History HTN (hypertension) HLD (hyperlipidemia) CAD (coronary artery disease) Surgical History Hx of removal of cyst History of cystostomy History of shoulder surgery History of nasal surgery Family History Father CAD (coronary artery disease) Mother Healthy adult Brother Melanoma Social History (Updated 09/23/23 @ 08:15 by David Madden PA-C) Housing: House Alcohol intake: current Alcohol intake frequency: a few times a week Alcohol type: wine Patient Tobacco Use Status: Never used Tobacco e-Cigarette/Vaping Use: Never Used Second Hand Smoke Exposure: No service: No Current occupational status: retired Current occupation: Retired Cognitive needs: No Hearing needs: No Vision needs: Yes (glasses) Questionnaire PHQ-9 Over the last 2 weeks, how often have you been bothered by any of the following problems? 1. Little interest or pleasure in doing things: not at all 2. Feeling down, depressed, or hopeless: not at all 3. Trouble falling or staying asleep, or sleeping too much: not at all 4. Feeling tired or having little energy: not at all 5. Poor appetite or overeating: not at all 6. Feeling bad about yourself - or that you are a failure or have let yourself or your family down: not at all 7. Trouble concentrating on things, such as reading the newspaper or watching television: not at all 8. Moving or speaking so slowly that other people could have noticed. Or the opposite - being so fidgety or restless that you have been moving around a lot more than usual: not at all 9. Thoughts that you would be better off or of hurting yourself in some way: not at all Total score: 0 Depression Screening Interpretation: Negative Depression Screening Done: Yes 81737 - PHQ-9 Billing: Yes Source: Developed by Drs. Rajeev Valerio, Michelle Flowers, Galen Solo and colleagues, with an educational aidan from [employer]. Thrive Questionnaire Date Thrive assessed: 09/23/23 I am a: Patient What is your living situation today?: I have a steady place to live Within the past 12 months, did the food you bought not last and you didn't have the money to get more?: Never true Within the past 12 months, did you worry whether your food would run out before you got money to buy more?: Never true Do you have trouble paying for medicines?: No Do you have trouble getting transportation to medical appointments?: No Do you have trouble paying your heating and electricity bill?: No Do you have trouble taking care of your child, family member or friend?: No Do you have trouble with day-to-day activities such as bathing, preparing meals, shopping, managing finances, etc.?: No Are you currently unemployed and looking for a job?: No Are you interested in more education?: No Currently or been in a relationship where the following occur: no concerns reported THRIVE Score: 0 AUDIT C Alcohol Use Questionnaire (AUDIT-C) 1. How often do you have a drink containing alcohol?: 2-3 times a week 2. How many drinks containing alcohol do you have on a typical day when you are drinking?: 1 or 2 Total Score: 3 ABRAHAM-7 AMB Questionnaire ABRAHAM-7 Date ABRAHAM - 7 assessed: 09/23/23 Feeling nervous, anxious, or on edge: 0 = Not at all Not being able to stop or control worryin = Not at all Worrying too much about different things: 0 = Not at all Trouble relaxin = Not at all Being so restless that it is hard to sit still: 0 = Not at all Becoming easily annoyed or irritable: 0 = Not at all Feeling afraid as if something awful might happen: 0 = Not at all Total ABRAHAM-7 score (0-4 normal; 5-9 mild; 10-14 moderate; 15-21 severe): 0 Source: Developed by Drs. Rajeev Valerio, Michelle Flowers, Galen Solo and colleagues, with an educational aidan from [employer]. ABRAHAM-7 Assessment Billing ABRAHAM-7 Assessment Tool: ABRAHAM-7 Assessment 78753 Review of Systems Const Denies body aches, Denies chills, Denies excessive sweating, Denies fatigue, Denies fever(s) and Denies headache(s) Eyes Denies blurry vision ENT Denies dysphagia, Denies vertigo, Denies dizziness, Denies headache(s), Denies hearing loss and Denies tinnitus Card Denies chest pain, Denies chest pain with activity, Denies syncope, Denies irregular heart rhythm and Denies dyspnea Resp Denies chest congestion, Denies cough, Denies hemoptysis, Denies dyspnea and Denies wheezing GI Denies abdominal pain, Denies melena, Denies hematochezia, Denies coffee ground emesis, Denies dysphagia, Denies diarrhea, Denies nausea and Denies vomiting Denies difficulty urinating, Denies dysuria, Denies urinary frequency, Denies urinary hesitancy and Denies urinary urgency Musc Denies arthralgias, Denies limited range of motion, Denies muscle cramps and Denies muscle weakness Skin/Breast Denies rash and Denies skin ulcer Neuro Denies Abnormal speech present, Denies confusion, Denies vertigo, Denies dizziness, Denies syncope, Denies headache(s), Denies memory loss and Denies seizure-like activity Psych Denies anxiety, Denies confusion, Denies depression, Denies memory loss, Denies panic attacks and Denies paranoia Endo Denies excessive sweating, Denies fatigue, Denies flushing, Denies polydipsia and Denies polyuria Aller/Immun Denies wheezing Physical exam (Primary Care) Vital Signs: Last Vital Signs Pulse 64 09/23/23 08:03 BP 124/70 09/23/23 08:03 Pulse Ox 98 09/23/23 08:03 Oxygen Delivery Method Room Air 09/23/23 08:03 BMI result Body Mass Index 27.4 Tobacco/Smoking Status: Tobacco use Status Tobacco use date assessed 09/23/23 09/23/23 08:08 Patient Tobacco Use Status Never used Tobacco 09/23/23 08:15 e-Cigarette/Vaping Use Never Used 09/23/23 08:15 PHQ-9: PHQ-9 Score PHQ-9: Total score 0 09/23/23 08:13 Depression Screening Interpretation: Negative Thrive Assessment: Date of Thrive Assessment Date Thrive assessed 09/23/23 09/23/23 08:08 Currently or been in a relationship where the following occur: no concerns reported Const General: cooperative, comfortable, no acute distress, alert and awake; No confusion Orientation/consciousness: oriented to person, oriented to place, patient oriented x3 and No confusion HENMT Head: Yes normocephalic Ears: external ears normal and TM's normal bilaterally Face and sinus: No sinus tenderness Mouth: Normal oral and palatal mucosa present and tongue normal Teeth and gingiva: dentition normal and gingiva normal Throat: Yes posterior oropharynx normal, Yes tonsils normal and Yes uvula midline Eyes Conjunctivae: conjunctivae normal Sclerae: sclerae normal Pupils: Equal, round and reactive pupils present EOM: EOMs intact bilaterally Direct Ophthalmoscopy: No no photophobia Neck Neck: Yes no lymphadenopathy, No tender and Yes no JVD Thyroid: Thyroid normal Carotids: no bruits Chest Chest palpation & inspection: no tenderness Resp Effort & Inspection: normal respiratory effort, no audible wheezes, not labored and no stridor Auscultation: no crackles, no rales, no rhonchi and no wheezes Cardio Jugular venous distension: no JVD Rate: regular rate, not bradycardic and not tachycardic Rhythm: regular rhythm Bruits: no carotid bruits Peripheral pulses: Peripheral pulses 2+ throughout GI Inspection: Yes normal to inspection, No abdominal wall ecchymosis and No visible herniation Palpation (GI): Soft to palpation, nontender, no guarding, not rigid and No hepatosplenomegaly present Auscultation: normoactive bowel sounds General: Yes no CVA tenderness Back/Spine/Pelvis Back: no CVA tenderness and No back tenderness Cervical Spine: cervical ROM normal Thoracic/Lumbar Spine: thoracic and lumbar spine normal to inspection, straight leg raise negative bilaterally, No thoraco-lumbar ROM limited and No lumbar spinal tenderness Skin Lesions: no lesions Rashes: no rashes Wounds: no wounds Neuro General: oriented to person, oriented to place, patient oriented x3, CN's II-XI intact bilaterally and No confusion Cranial nerves: Yes Equal, round and reactive pupils present and Yes Normal accommodation reflex present Cognition (Neuro): normal cognition Speech: No Abnormal speech present Gait exam (Neuro): Normal gait present Motor exam (neuro): 5/5 motor strength present throughout Extrem Right upper extremity: full ROM; no cyanosis Left upper extremity: full ROM; no cyanosis Right lower extremity: no edema Left lower extremity: no edema Psych Appearance: grossly normal Mental Status: mental status grossly normal Affect: normal affect Attitude: cooperative Thought process: Normal thought process present Immunizations pneumoc 20-surjit conj-dip cr(PF) 0.5 mL IM syringe Performing Provider: David Madden PA-C Performing Location: [facility] Administered by: SANDRA Fisher on 09/23/23 08:44 Dose Route Admin Location Dispensed Lot Number Expiration Date NDC [employer] 0.5 mL IM Left Deltoid 0.5 mL [id number] 11/12/24 [id number] [place] [employer] VIS Given Date VIS Provided VIS Publication Date 09/23/23 Single Vaccine 21 Eligibility Eligibility Date Funding Source Not [facility] Eligible 09/23/23 Private Assessment and Plan Assessment & Plan (1) Annual physical exam: Code(s): Z00.00 - Encounter for general adult medical examination without abnormal findings (2) ABRAHAM (generalized anxiety disorder): Code(s): F41.1 - Generalized anxiety disorder Plan: Patient continues to suffer with mild anxiety, still remains on low-dose citalopram with decent affect on reducing his anxiety. Not interested in speaking with a mental health therapist at this time. (3) COPD (chronic obstructive pulmonary disease): Code(s): J44.9 - Chronic obstructive pulmonary disease, unspecified Qualifiers: COPD type: emphysema Emphysema type: unspecified Qualified Code(s): J43.9 - Emphysema, unspecified Plan: Patient is a former smoker thus uses an albuterol inhaler on a p.r.n. basis and daily use Advair with good effect. He does report being more physically active does help his pulmonary symptoms. He does report some heaviness in his chest and some shortness of breath only in the mornings. He would like to use Advair on a daily basis rather than albuterol inhaler. (4) CAD (coronary artery disease): Code(s): I25.10 - Atherosclerotic heart disease of [place] coronary artery without angina pectoris Qualifiers: Coronary Disease-Associated Artery/Lesion type: [place] artery [place] vs. transplanted heart: [place] heart Associated angina: without angina Qualified Code(s): I25.10 - Atherosclerotic heart disease of [place] coronary artery without angina pectoris Plan: Patient continues to follow cardiology. Blood pressure well controlled though lipid panel suboptimally controlled LDL at 103. He is apprehensive on increasing his statin therapy due to perceived side effects. He does understand his Goal LDL to be optimally below 70 (5) Colon cancer screening: Code(s): Z12.11 - Encounter for screening for malignant neoplasm of colon Plan: Did have colonoscopy in 2013, hyperplastic polyp found. Needs repeat this year. Orders: Orders Complete Blood Count no Diff Today J43.9 - Emphysema, unspecified Pneumococcal 20 Immunization Today Z23 - Encounter for immunization [place]. Panel Fast Today I10 - Essential (primary) hypertension Lipid Panel Today I25.10 - Atherosclerotic heart disease of [place] coronary artery without angina pectoris Referrals Gastroenterology Referral Z12.11 - Encounter for screening for malignant neoplasm of colon Medications: Refilled fluticasone propion-salmeterol 115-21 mcg/actuation (Advair HFA) 2 puffs inhalation BID 30 days 12 grams 3RF J43.9 - Emphysema, unspecified Patient Instructions: Goal: Blood pressure to remain below 140/90 , LDL to be optimally below 70 Barriers: Adherence to physical activity and healthy eating habits Coding Level of Care Code Est Pt Prev Care >65y(48118) Diagnoses Annual physical exam Z00.00 ABRAHAM (generalized anxiety disorder) F41.1 Pulmonary emphysema, unspecified emphysema type J43.9 COPD type: emphysema Emphysema type: unspecified Coronary artery disease involving [place] coronary artery of [place] heart without angina pectoris I25.10 Coronary Disease-Associated Artery/Lesion type: [place] artery [place] vs. transplanted heart: [place] heart Associated angina: without angina Colon cancer screening Z12.11 Additional Codes ABRAHAM-7 Assessment Billing - ABRAHAM-7 Assessment Tool: ABRAHAM-7 Assessment 22415 ([id number])
== END 2023-09-23 08:48 | disposition home or self-care (01) ==
PROVIDERS: PCP Physician Assistant; Visit Provider Physician Assistant
DX: Z00.00 Encounter for general adult medical examination without abnormal findings (principal); F41.1 Generalized anxiety disorder; J43.9 Emphysema, unspecified; Z23 Encounter for immunization; I25.10 Atherosclerotic heart disease of native coronary artery without angina pectoris; Z12.11 Encounter for screening for malignant neoplasm of colon
CPT/HCPCS: 90471; 90677; 99397

== ENCOUNTER 2023-10-21 10:53 | Outpatient (AMB) | payer MEDICARE, SELFPAY ==
[2023-10-21 11:09] VITALS: BP 118/70; PULSE 78; TEMP 36.7; O2SAT 96; BMI 28.0
--- NOTE | 2023-10-21 11:09 | AM.OFFWIN_ITS ---
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 The pain is just proximal to the nail bed does not involve the MCP. Patient has a past medical history of multiple paronychia. He has had the nail excised on both sides. This pain and swelling today is not at the nail bed but superior to the nail bed PFSH Medical History HTN (hypertension) HLD (hyperlipidemia) CAD (coronary artery disease) Surgical History Hx of removal of cyst History of cystostomy History of shoulder surgery History of nasal surgery Family History Father CAD (coronary artery disease) Mother Healthy adult Brother Melanoma Social History (Updated 09/23/23 @ 08:15 by David Madden PA-C) Housing: House Alcohol intake: current Alcohol intake frequency: a few times a week Alcohol type: wine Patient Tobacco Use Status: Never used Tobacco e-Cigarette/Vaping Use: Never Used Second Hand Smoke Exposure: No service: No Current occupational status: retired Current occupation: Retired Cognitive needs: No Hearing needs: No Vision needs: Yes (glasses) Review of Systems Const All systems reviewed & are unremarkable except as noted in HPI and below Musc Reports joint swelling and Reports stiffness Physical Exam Vital Signs: Last Vital Signs Temp 98.0 F 10/21/23 11:09 Pulse 78 10/21/23 11:09 BP 118/70 10/21/23 11:09 Pulse Ox 96 10/21/23 11:09 Oxygen Delivery Method Room Air 10/21/23 11:09 BMI result Body Mass Index 28.0 Const General: healthy appearing and no acute distress Extrem Right lower extremity: foot (Erythema and swelling noted to the nail bed of the great toe) Details: tenderness, warmth and edema Assessment & Plan Assessment & Plan (1) Cellulitis: Code(s): L03.90 - Cellulitis, unspecified Plan: Antibiotic ordered. The patient states he will consult a petroleum terminal plant operator for toenail removal. Plan See plan Medications: New cephalexin 500 mg PO BID 7 days 14 caps 0RF Coding Level of Care Code Est Pt Level 3 (82325) Diagnoses Cellulitis L03.90
== END 2023-10-21 11:32 | disposition home or self-care (01) ==
PROVIDERS: PCP Physician Assistant; Visit Provider Physician Assistant Medical
DX: L03.90 Cellulitis, unspecified (principal)
CPT/HCPCS: 99213

== ENCOUNTER 2023-10-29 10:31 | Outpatient (REF) | payer MEDICARE, SELFPAY ==
--- NOTE | ~2023-10-29 | XR_ITS ---
EXAMINATION: XR SACRUM AND COCCYX CLINICAL INFORMATION: Sacrococcygeal disorder. Patient reports no known injury, pain in tailbone area. COMPARISON: None available. TECHNIQUE: 4 views of the sacrum and coccyx were obtained. FINDINGS: On the frontal views, there is bowel gas and stool partially obscuring the sacrum and coccyx, limiting evaluation. On the provided views, no definite sacral or coccygeal fracture is identified. Right greater than left SI joint arthritis. Mild bilateral hip joint arthritis with acetabular sclerosis. Spondylosis in the visualized lower lumbar spine. Symphysis pubis degeneration. Phleboliths in the pelvis. Study presented for dictation on 11/04/2023. XR/XR sacrum coccyx min 2V IMPRESSION: 1. No radiographic evidence of acute sacral or coccygeal fracture. Bowel gas and stool limiting evaluation. Cross-sectional imaging for further evaluation as clinically indicated. 2. Bilateral SI joint arthritis. 3. Mild bilateral hip joint arthritis.
--- NOTE | ~2023-10-29 | XR_ITS ---
EXAMINATION: XR FOOT, RIGHT CLINICAL INFORMATION: Nail infection of great toe. COMPARISON: None available. TECHNIQUE: 3 views of the right foot. FINDINGS: Soft tissue swelling of the first toe. At the first IP joint, there are mild joint space loss, marginal osteophytes, subchondral sclerosis and cysts in the medial aspect of the joint, and to a lesser extent along the lateral aspect of the joint. Findings are consistent with mild-moderate arthritis. No erosive or destructive changes identified by x-ray. No evidence of acute fracture. No air is seen in the soft tissues. No radiopaque foreign bodies. Study presented for dictation on 11/04/2023. XR/XR foot RT 2V IMPRESSION: Soft tissue swelling of the first toe. Mild-moderate first IP joint arthritis. No radiographic evidence of definitive osteomyelitis. Consider MRI for further evaluation if there is clinical concern for osteomyelitis.
== END 2023-10-29 10:32 | disposition home or self-care (01) ==
LOC: HO.XRAY 10:31
PROVIDERS: PCP Physician Assistant; Visit Provider Physician Assistant
DX: M79.674 Pain in right toe(s) (principal); M53.3 Sacrococcygeal disorders, not elsewhere classified
CPT/HCPCS: 72220; 73620

== ENCOUNTER 2023-11-06 09:15 | Outpatient (AMB) | payer MEDICARE, SELFPAY ==
[2023-11-06 09:26] VITALS: BP 122/80; PULSE 70; BMI 27.5
--- NOTE | 2023-11-06 09:26 | MHC.OFFVIS ---
Vital Signs 11/06/23 09:26 Height 5 ft 10 in Weight 191 lb 12.835 oz BMI 27.5 BP 122/80 Blood Pressure Location Lt brachial Position Sitting Pulse 70 Intake Visit Reasons: 1 yr f/up Intake Note: 1 year follow-up with ekg feeling good Hand Zipper Trimmer Required: No Allergies fire ants Allergy (Severe, Uncoded 10/21/23 11:09) Anaphylaxis Medication List - Last Reconciled 11/06/23 by Shine Marshall MD albuterol sulfate 90 mcg/actuation (Ventolin HFA) 1 puff inhalation QID 30 days alfuzosin ER 10 mg PO DAILY aspirin (Adult Low Dose Aspirin) 81 mg PO DAILY citalopram 10 mg PO DAILY 90 days fluticasone propion-salmeterol 115-21 mcg/actuation (Advair HFA) 2 puffs inhalation BID 30 days lisinopril 40 mg PO DAILY lorazepam 0.5 mg PO BEDTIME PRN 10 days pantoprazole 40 mg PO DAILY 90 days rosuvastatin 20 mg PO DAILY rosuvastatin 10 mg PO DAILY spironolactone 25 mg PO DAILY HPI Comments Details: Lalo comes for follow-up. He has no cardiovascular symptoms. Exercise at high level. His last LDL is not well optimized 106 mg/dL. He is still concerned about vascular events. Complains of erectile dysfunction but says this is still not a limiting factor as yet. Denies any exertional chest pain. Does have complains of shortness of breath usually in the morning hours. He is very inclined to reduce his medication burden. He said his blood pressure about control usually systolic 120-130 at home and wants to try to taper his medications. He denies any shortness of breath, orthopnea, PND. No leg edema, abdominal distension. No prolonged palpitation irregular heartbeat. He is currently taking Crestor and the 30 mg dose. [facility] Medical History HTN (hypertension) HLD (hyperlipidemia) CAD (coronary artery disease) Surgical History Hx of removal of cyst History of cystostomy History of shoulder surgery History of nasal surgery Family History Father CAD (coronary artery disease) Mother Healthy adult Brother Melanoma Social History Housing: House Alcohol intake: current Alcohol intake frequency: a few times a week Alcohol type: wine Patient Tobacco Use Status: Never used Tobacco e-Cigarette/Vaping Use: Never Used Second Hand Smoke Exposure: No service: No Current occupational status: retired Current occupation: Retired Cognitive needs: No Hearing needs: No Vision needs: Yes (glasses) Review of Systems Const Denies chills, Denies fatigue, Denies fever(s), Denies frequent falls, Denies weakness, Denies weight gain and Denies weight loss ENT Denies dizziness Card Denies chest pain, Denies leg edema, Denies lightheadedness, Denies palpitations, Denies dyspnea, Denies dyspnea on exertion, Denies orthopnea and Denies other (loss of consciousness) Resp Denies cough, Denies dyspnea and Denies dyspnea on exertion GI Denies hematochezia and Denies change in stool character Musc Denies abnormal gait, Denies muscle weakness, Denies numbness, Denies radiating pain into limb and Denies tingling Neuro Denies abnormal gait, Denies dizziness, Denies frequent falls, Denies numbness, Denies tingling and Denies weakness Endo Denies fatigue and Denies palpitations Physical Exam Vital Signs: Last Vital Signs Pulse 70 11/06/23 09:26 BP 122/80 11/06/23 09:26 BMI result Body Mass Index 27.5 Const General: cooperative, comfortable, no acute distress, alert and awake Nutritional Appearance: average body habitus Orientation/consciousness: patient oriented x3 Limitations: no limitations Neck Neck: Yes trachea midline, Yes supple and Yes no JVD Resp Effort & Inspection: normal respiratory effort Auscultation: clear to auscultation bilaterally and diminished lung sounds Cardio Jugular venous distension: no JVD Palpation: normal PMI Rate: regular rate Rhythm: regular rhythm Heart sounds: S1 normal heart sound present and S2 normal heart sound present GI Auscultation: normal bowel sounds Skin General skin exam: no rashes or lesions noted Neuro General: patient oriented x3 and no focal motor deficits Extrem General: Yes no clubbing, cyanosis or edema Psych Appearance: grossly normal Office Procedures EKG Details: EKG shows normal sinus rhythm nonspecific ST abnormalities. 95269-[id number], Complete Assessment & Plan Assessment & Plan (1) CAD (coronary artery disease): Code(s): I25.10 - Atherosclerotic heart disease of [place] coronary artery without angina pectoris Category: Medical Qualifiers: Coronary Disease-Associated Artery/Lesion type: [place] artery [place] vs. transplanted heart: [place] heart Associated angina: without angina Qualified Code(s): I25.10 - Atherosclerotic heart disease of [place] coronary artery without angina pectoris Plan: Coronary artery disease with nonobstructive disease with no exertional symptoms at current time. No further stress testing is needed. However we discussed management and pathophysiology of atherosclerosis. Recommend further optimization of lipid therapy. We discussed with target goal LDL to 60 mg/dL. Would suggest to change rosuvastatin to 40 mg daily and follow-up lipid panel and CRP in 3 months time. If LDL is not well optimized will add ezetimibe. He wanted to try PCSK9 inhibitor therapy and I discussed that this will require to be a step therapy. Continue aggressive blood pressure control. Continue monitor blood pressure at home see below. Continue maintain activity level as tolerated. (2) HTN (hypertension): Code(s): I10 - Essential (primary) hypertension Category: Medical Qualifiers: Hypertension type: essential hypertension Qualified Code(s): I10 - Essential (primary) hypertension Plan: Hypertension which is optimally controlled but he wants to try to reduce his medications. Will reduce spironolactone to 12.5 mg daily. Advised to monitor blood pressure closely at home and maintain a log. Follow-up OB in 3 months for blood pressure check. Low-salt diet was discussed. (3) Shortness of breath: Code(s): R06.02 - Shortness of breath Category: Medical Plan: Shortness of breath which most likely is pulmonary in origin. Will suggest a pulmonary function test. This will be scheduled in near future will also obtain echocardiogram to evaluate LV structure including systolic and diastolic function to evaluate for hypertensive heart disease and pulmonary hypertension. Will follow up in the clinic in 1 year's time, sooner p.r.n.. Thank you for allowing me to partake in his care Orders: Orders CA echo transthoracic complete Today R06.02 - Shortness of breath PFT pulmonary function test Today R06.02 - Shortness of breath Lipid Panel 3 Months I25.10 - Atherosclerotic heart disease of [place] coronary artery without angina pectoris CRP High Sensitivity 3 Months E78.5 - Hyperlipidemia, unspecified, I25.10 - Atherosclerotic heart disease of [place] coronary artery without angina pectoris Medications: New rosuvastatin (Crestor) 40 mg PO DAILY 30 tabs 11RF R06.02 - Shortness of breath Changed From spironolactone 25 mg PO DAILY 30 tabs 11RF R06.02 - Shortness of breath To spironolactone 12.5 mg (1/2 x 25 mg) PO DAILY 30 tabs 11RF R06.02 - Shortness of breath Discontinued rosuvastatin take along with the 10mg to equal 30mg Discontinued Reason: Doctor's Order 20 mg PO DAILY 30 tabs 4RF rosuvastatin take along with the 20mg to equal 30mg Discontinued Reason: Doctor's Order 10 mg PO DAILY 30 tabs 5RF Coding Level of Care Code Est Pt Level 4 (88672) Diagnoses Coronary artery disease involving [place] coronary artery of [place] heart without angina pectoris I25.10 Coronary Disease-Associated Artery/Lesion type: [place] artery [place] vs. transplanted heart: [place] heart Associated angina: without angina Essential hypertension I10 Hypertension type: essential hypertension Shortness of breath R06.02 CPT Codes EKG - CPT: 44460-Ushzgdazwmfwzpufk, Complete ([id number])
== END 2023-11-06 10:12 | disposition home or self-care (01) ==
PROVIDERS: PCP Physician Assistant; Visit Provider Internal Medicine Cardiovascular Disease
DX: I25.10 Atherosclerotic heart disease of native coronary artery without angina pectoris (principal); I10 Essential (primary) hypertension; R06.02 Shortness of breath
CPT/HCPCS: 93010; 99214

== ENCOUNTER → 2023-11-06 09:15 | Outpatient (BNVA) | payer MEDICARE, SELFPAY | PROVIDERS: PCP Physician Assistant; Visit Provider Internal Medicine Cardiovascular Disease | DX: I25.10 Atherosclerotic heart disease of native coronary artery without angina pectoris (principal); I10 Essential (primary) hypertension; R06.02 Shortness of breath | CPT/HCPCS: 93005; 99212 ==

== ENCOUNTER → 2023-11-26 08:22 | Outpatient (REF) | payer MEDICARE, SELFPAY ==
--- NOTE | 2023-11-26 08:25 | CA_ITS ---
Transthoracic Echocardiogram Patient (Last, First, Middle): Lalo Hayes E Gender: Male Date of : 1955 Age: 67 Procedure Date: 11/26/2023 Procedure Type: Transthoracic Echocardiogram Location: OP Height: 177.8 cm Weight: 86.64 kg BSA: 2.05 m2 Heart Rate: 60 bpm BP: 122 / 80 mmHg Chief Design Drafter: SB Referring MD: Shine Marshall MD Symptoms: R06.02 - Shortness of breath Study Quality: Adequate ECG Rhythm: Sinus Conclusions: - The left ventricular systolic function is normal. The calculated ejection fraction is 62% by biplane method. - No obvious valvular pathology seen on this study. - Moderate plaque is seen in the ascending aorta. Findings Left Ventricle Normal left ventricular cavity size. There is normal left ventricular wall thickness. The left ventricular systolic function is normal. The calculated ejection fraction is 62% by biplane method. There is no evidence of regional wall motion abnormalities. Diastolic function is normal for age. There is mild septal asymmetric hypertrophy. Right Ventricle Normal right ventricular cavity size and systolic function. Atria Both atria are normal in size. Aortic Valve The aortic valve was not well visualized. There is mild calcification of the aortic valve. There is no aortic valve stenosis. Mitral Valve The mitral valve appears normal. There is no mitral valve regurgitation. There is no mitral valve stenosis. Pulmonic Valve The pulmonic valve is likely normal. Tricuspid Valve There is no tricuspid valve regurgitation. Tricuspid regurgitation envelope is inadequate for calculation of right ventricular systolic pressure. Great Vessels The asc aorta is normal in size. Moderate plaque is seen in the ascending aorta. Venous The inferior vena cava is normal in size and collapses greater than 50% with inspiration. Pericardium/Pleural There is no evidence of pericardial effusion. Prior Study Comparison No significant change compared to prior study dated: 09/28/2020. Recommendations, Care & Conclusions No obvious valvular pathology seen on this study. Measurements 2D Linear Measurements IVSd: 1.17 0.6-0.9/0.6-1.0 cm LVIDd: 4.55 3.9-5.3/4.2-5.9 cm LVIDd Index: 2.22 2.4-3.2/2.2-3.1 cm/m2 LVIDs: 3.09 2.0-3.6 cm LVPWd: 0.83 0.7-1.1 cm LA Diam: 3.30 2.7-3.8/3.0-4.0 cm LAIDs Index: 1.61 1.5-2.3 cm/m2 LV Mass: 193.89 67-162/88-224 g LV Mass Index: 94.58 43-95/49-115 g/m2 LVOT Diam: 2.10 3.0+(-)1.3 cm 2D Systolic Function EF 4C: 61.80 >55% EF 2C: 64.40 >55% EF BiP: 62.00 >55% Mitral Valve MV Pk E: 0.60 MV PK A: 0.50 MV Decel Time: 203.00 E/A: 1.20 E'Lateral: 6.64 E'Medial: 5.77 E/E' Med: 10.40 E/E' Lat: 9.00 PHT: 59.00 MVA PHT: 3.73 Decel Bleckley: 2.96 Aortic Valve AoV Pk Simeon: 1.06 AoV Pk Grad: 4.00 ANDRES: 3.66 LVOT LVOT Pk Simeon: 0.98 LVOT Mn Simeon: 0.68 LVOT VTI: 0.22 LVOT Pk Grad: 4.00 LVOT Mn Grad: 2.00 LVOT Diam: 2.10 LVOT Area: 3.46 Diastolic Function MV Pk E: 0.60 MV Pk A: 0.50 E/A: 1.20 E'Medial: 5.77 E/E' Med: 10.40 E' Laterial: 6.64 E/E' Lat: 9.00 Right Ventricle TAPSE (mm): 20.00 TVS' Simeon: 10.30 Tricuspid Valve RA Press: 3.00 Great Vessels Aorta Sinus of Valsalva: 3.40 2.0-3.5 cm Ao Asc: 3.50 2.1-3.4 cm Pulmonary Valve PV Pk Simeon: 0.93 Peak PV Grad: 3.00 Updated in Other Vendor System with Status of Final John Mcbride MD electronically signed on 11/28/2023 11:03:28 AM with status of Final
== END ==
LOC: HO.CARD 08:22
PROVIDERS: PCP Physician Assistant; Visit Provider Internal Medicine Cardiovascular Disease
DX: R06.02 Shortness of breath (principal)
CPT/HCPCS: 93306

== ENCOUNTER → 2023-11-26 08:25 | Outpatient (BNV) | payer MEDICARE, SELFPAY | PROVIDERS: PCP Physician Assistant; Visit Provider Internal Medicine | DX: I35.8 Other nonrheumatic aortic valve disorders (principal); I42.2 Other hypertrophic cardiomyopathy | CPT/HCPCS: 93306 ==

== ENCOUNTER 2023-12-16 09:14 | Outpatient (REF) | payer MEDICARE, SELFPAY ==
--- NOTE | ~2023-12-16 | US_ITS ---
EXAMINATION: US RETROPERITONEAL COMPLETE (RENAL) CLINICAL INFORMATION: Cystic kidney. History of left renal upper pole complex cyst. COMPARISON: CT urogram 12/05/2022, MR abdomen 09/16/2022, ultrasound abdomen 03/18/2022, renal ultrasound 09/21/2013. TECHNIQUE: Real-time imaging of the kidneys and adrenal glands do not. Limited visualization due to bowel gas. FINDINGS: RIGHT KIDNEY: 10.4 x 5.2 x 5.9 cm (SAG x AP x TRV). No hydronephrosis. No renal calculi. Renal cortical thickness is normal. Limited visualization. LEFT KIDNEY: 10.3 x 5.3 x 5.0 cm (SAG x AP x TRV). No hydronephrosis. No renal calculi. Renal cortical thickness is normal. Limited visualization. 2.1 cm left renal exophytic upper pole complex cyst versus solid mass with diffuse internal echoes and possible septation is difficult to fully characterize due to limited visualization. MR abdomen of 09/16/2022 demonstrated a 1.7 cm upper pole lesion for which biopsy was recommended. 5.8 x 5.3 x 5.6 cm lower pole cyst with septations measured 5 x 6.5 cm on MR of 2022. US/US renal BI IMPRESSION: A 2.1 cm left renal exophytic upper pole complex cystic lesion is difficult to characterize as detailed above. MR abdomen of 09/16/2022 demonstrated a 1.7 cm upper pole lesion for which biopsy was recommended. CT urogram of 12/05/2022 demonstrated a 1.8 cm cyst in the upper pole felt to possibly represent a proteinaceous cyst. 5.8 cm left renal lower pole cyst with septations stable in size compared with prior CT urogram and MRI. Urology consultation recommended to determine further management. Electronically signed by: Evi Raymundo MD 12/17/2023 04:49 PM EDT RP
== END 2023-12-16 09:15 | disposition home or self-care (01) ==
LOC: HO.US 09:14
PROVIDERS: PCP Physician Assistant; Visit Provider Urology
DX: N28.1 Cyst of kidney, acquired (principal)
CPT/HCPCS: 76775

== ENCOUNTER 2024-01-08 13:52 | Outpatient (AMB) | payer MEDICARE, SELFPAY ==
--- NOTE | 2024-01-08 14:07 | MHC.OFFVIS ---
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 Patient reports about a month ago [place] when [place] in [place]. His pain has improved however he continues to have pain located at the medial aspect of right knee. Denies numbness or tingling. Allergies fire ants Allergy (Severe, Uncoded 01/08/24 14:07) Anaphylaxis Medication List - Last Reconciled 01/08/24 by Robb Carlisle PA-C albuterol sulfate 90 mcg/actuation (Ventolin HFA) 1 puff inhalation QID 30 days alfuzosin ER 10 mg PO DAILY aspirin (Adult Low Dose Aspirin) 81 mg PO DAILY citalopram 10 mg PO DAILY 90 days fluticasone propion-salmeterol 115-21 mcg/actuation (Advair HFA) 2 puffs inhalation BID 30 days lisinopril 40 mg PO DAILY lorazepam 0.5 mg PO BEDTIME PRN 10 days pantoprazole 40 mg PO DAILY 90 days rosuvastatin (Crestor) 40 mg PO DAILY spironolactone 12.5 mg (1/2 x 25 mg) PO DAILY 90 days HPI HPI OV-Right knee pain-tweaked his right knee again: Details: 68-year-old male who returns to the office today for a follow-up of right knee pain. He reports he was walking on a beach when he stepped in a hole and fell, 12/07/23 and started to feel the pain again as previously. His pain has improved however he continues to have pain at the medial aspect of his right knee. He also feels has been walking ?funny? since the fall. He denies any numbness or tingling. [facility] Medical History HTN (hypertension) HLD (hyperlipidemia) CAD (coronary artery disease) Surgical History Hx of removal of cyst History of cystostomy History of shoulder surgery History of nasal surgery Family History Father CAD (coronary artery disease) Mother Healthy adult Brother Melanoma Social History Housing: House Alcohol intake: current Alcohol intake frequency: a few times a week Alcohol type: wine Patient Tobacco Use Status: Never used Tobacco e-Cigarette/Vaping Use: Never Used Second Hand Smoke Exposure: No service: No Current occupational status: retired Current occupation: Retired Cognitive needs: No Hearing needs: No Vision needs: Yes (glasses) Review of Systems Const All systems reviewed & are unremarkable except as noted in HPI and below Physical Exam Vital Signs: BMI result Body Mass Index 27.4 Extrem Other: Right knee: Skin intact, no erythema or joint effusion. Tenderness along the medial and lateral joint line. Full ROM with crepitus. Negative Dakota?s. No ligamentous laxity. NVI. ? Assessment & Plan Assessment & Plan (1) Tear of medial meniscus of right knee: Code(s): S83.241A - Other tear of medial meniscus, current injury, right knee, initial encounter Category: Medical Plan He will continue with activities as tolerated. Dr. Prado was available to see the patient with me today. We discussed conservative vs operative management today. He will continue with conservative management this time. He will contact if symptoms worsens, otherwise as needed. Patient Instructions: Scribed for Robb Carlisle PA-C, by Erlin Lozano bacteriologist medical, on 01/08/2024 at 2:15 PM EST.? I, Robb Carlisle PA-C, have personally reviewed and agree with the information entered by the scribe. Coding Level of Care Code Est Pt Level 3 (83367) Complex EM visit Add On G2211 Diagnoses Tear of medial meniscus of right knee S83.241A
[2024-01-08 14:10] VITALS: BMI 27.4
== END 2024-01-08 15:56 | disposition home or self-care (01) ==
PROVIDERS: PCP Physician Assistant; Visit Provider Physician Assistant
DX: S83.241A Other tear of medial meniscus, current injury, right knee, initial encounter (principal); W19.XXXA Unspecified fall, initial encounter
CPT/HCPCS: 99213

== ENCOUNTER → 2024-01-08 13:52 | Outpatient (BNVA) | payer MEDICARE, SELFPAY | PROVIDERS: PCP Physician Assistant; Visit Provider Physician Assistant | DX: S83.241A Other tear of medial meniscus, current injury, right knee, initial encounter (principal); W19.XXXA Unspecified fall, initial encounter; Y93.9 Activity, unspecified; Y92.9 Unspecified place or not applicable; Y99.9 Unspecified external cause status | CPT/HCPCS: 99212 ==

== ENCOUNTER 2024-01-08 15:26 | Outpatient (REF) | payer MEDICARE, SELFPAY ==
--- NOTE | ~2024-01-08 | XR_ITS ---
EXAMINATION: XR ABDOMEN KUB CLINICAL INDICATION: R10.9 - Unspecified abdominal pain COMPARISON: No prior. Correlation made with CT urogram 12/05/2022. TECHNIQUE: AP view of the abdomen. FINDINGS: Bowel gas pattern is normal/nonspecific. No focally dilated loop. Aside from vascular calcifications and pelvic phleboliths, no abnormal soft tissue calcification seen. No organomegaly. No large abdominal mass. Lung bases appear clear. 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 XR/XR KUB IMPRESSION: 1. No acute findings. No abnormal calcification seen. Electronically signed by: Devon Hernandez MD 03/16/2024 04:34 PM EST
== END 2024-01-08 15:27 | disposition home or self-care (01) ==
LOC: HO.XRAY 15:26
PROVIDERS: PCP Physician Assistant; Visit Provider Physician Assistant
DX: R10.9 Unspecified abdominal pain (principal)
CPT/HCPCS: 74018

== ENCOUNTER → 2024-01-08 15:28 | Outpatient (BNV) | payer MEDICARE, SELFPAY | PROVIDERS: PCP Physician Assistant; Visit Provider Radiology Diagnostic Radiology | DX: R10.9 Unspecified abdominal pain (principal) | CPT/HCPCS: 74018 ==

== ENCOUNTER 2024-01-19 09:55 | Outpatient (AMB) | payer MEDICARE, SELFPAY ==
--- NOTE | 2024-01-19 10:05 | A.OFFVIS_ITS ---
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: No Allergies fire ants Allergy (Severe, Uncoded 01/08/24 14:07) Anaphylaxis Medication List - Last Reconciled 01/19/24 by Julio Benjamin MD albuterol sulfate 90 mcg/actuation (Ventolin HFA) 1 puff inhalation QID 30 days aspirin (Adult Low Dose Aspirin) 81 mg PO DAILY citalopram 10 mg PO DAILY 90 days fluticasone propion-salmeterol 115-21 mcg/actuation (Advair HFA) 2 puffs inhalation BID 30 days lisinopril 40 mg PO DAILY lorazepam 0.5 mg PO BEDTIME PRN 10 days pantoprazole 40 mg PO DAILY 90 days rosuvastatin (Crestor) 40 mg PO DAILY spironolactone 12.5 mg (1/2 x 25 mg) PO DAILY 90 days HPI Comments Details: 01/19/24--Jeronimo is doing well, he is not using the alfuzosin. No new LUTS. I reviewed renal US 12/16/23- Bosniak I and II left renal cysts are stable. PSA 09/17/2023-- 0.46 ng/mL. UA trace blood. Will fu in one year. Review of chart: 05/02/23--Lalo is a 67-year-old male telehealth follow-up. Lalo is being evaluated due to BPH, hematuria, atypical cytology and renal cysts. The patient had urine FISH sent from urine specimen 01/01/2023. I reviewed with the patient that results came back negative. I want him to continue alfuzosin follow-up in 9 months. 01/01/2023?He is followed today for cystoscopy procedure. He was last seen by me on 11/27/2022 due to abnormal urine cytology results. Patient states that he noticed mild discomfort while urination. He denies any other urinary symptoms at this time. Review of his chart noted a prior MRI 09/16/22 that noted a 1.6 x 1.7 cm lesion in the left kidney. Evaluation for enhancement was limited on this study. The patient was advised to follow-up for office Cystoscopy during that time and CT Urogram was discussed for further evaluation. I reviewed the CT urogram results from 12/05/2022 ? There are left renal cysts. including a 6.6 cm low-attenuation cyst with septations with stable mildly complex (Bosniak 2) appearance. radiologist reported as c/w with benign and requires no imaging follow-up. At the upper pole of the left kidney also a 1.8 cm nonenhancing hemorrhagic/proteinaceous cyst. There is diffuse bladder wall thickening, suggesting possible cystitis. Evaluation today?UA? luekocytes: negative; blood: trace. Cystoscopy procedure -Cystoscopy findings: bladder wall thickening noted; no suspicious bladder lesions noted. 11/27/2022?He was last seen by me on 10/30/2022. He has had MRI of the abdomen with and without contrast on 09/16/2022.? I have discussed that repeat urine? cytology was sent? came back with? atypical cells again;?I have discussed DD for atypical urine cytology includes, urinary tract inflammation, infection, stones, as well as malignancy. He states that he is scheduled for CAT scan of the abdomen with and without IV contrast for 12/05/22. 10/30/2022?Lalo is a 66-year-old male who presents to the clinic today for abnormal imaging of kidney/ureter. The patient had an MRI on 09/16/22 that noted a 1.6 x 1.7 cm lesion in the left kidney. Evaluation for enhancement is limited on this study. He is here for further evaluation.He states that he has a chronic history of hematuria. He has been followed for kidney cysts. He states that he had the recent imaging due to complaints of abdominal pain on his right side. Evaluation today?UA 10/30/22? Blood 10 Supa. Leukocytes: negative. Bladder scan PVR is 21. Review of labs 09/12/22 ? PSA 0.63. 10/11/20 ? PSA 0.72. 09/21/21?PSA 0.39. PFSH Medical History HTN (hypertension) HLD (hyperlipidemia) CAD (coronary artery disease) Surgical History Hx of removal of cyst History of cystostomy History of shoulder surgery History of nasal surgery Family History Father CAD (coronary artery disease) Mother Healthy adult Brother Melanoma Social History Housing: House Alcohol intake: current Alcohol intake frequency: a few times a week Alcohol type: wine Patient Tobacco Use Status: Never used Tobacco e-Cigarette/Vaping Use: Never Used Second Hand Smoke Exposure: No service: No Current occupational status: retired Current occupation: Retired Cognitive needs: No Hearing needs: No Vision needs: Yes (glasses) Review of Systems Const All systems reviewed & are unremarkable except as noted in HPI and below Reports no additional complaints Eyes Reports no additional complaints ENT Reports no additional complaints Card Reports no additional complaints Resp Reports no additional complaints GI Reports no additional complaints Reports as per HPI Musc Reports no additional complaints Skin/Breast Reports system reviewed and no additional complaints, except as documented Neuro Reports no additional complaints Psych Reports no additional complaints Endo Reports no additional complaints Jose/Lymph Reports no additional complaints Aller/Immun Reports no additional complaints Results AMB Urinalysis, Automated UA Leukoctes 0 Gilmer/uL Last Edit by Corrina Azra on 01/19/24 10:16 UA Nitrite Negative Last Edit by Corrina Azra on 01/19/24 10:16 UA Urobilinogen 0.2 mg/dL Last Edit by Corrina Azra on 01/19/24 10:16 UA Protein 0 mg/dL Last Edit by Corrina Azra on 01/19/24 10:16 UA pH 6.5 Last Edit by Corrina Azra on 01/19/24 10:16 UA Blood 10 Supa/uL Last Edit by Corrina Azra on 01/19/24 10:16 UA Specific Crockett 1.010 Last Edit by Corrina Azra on 01/19/24 10:16 UA Ketone Negative Last Edit by Corrina Azra on 01/19/24 10:16 UA Bilirubin 0 mg/dL Last Edit by Corrina Azra on 01/19/24 10:16 UA Glucose 0 mg/dL Last Edit by Corrina Azra on 01/19/24 10:16 Results Reviewed Results Reviewed: Laboratory Last Values Urine pH (Auto) 6.5 01/19/24 10:06 Specific Crockett (Auto) 1.010 01/19/24 10:06 Urine Protein (Auto) 0 mg/dL 01/19/24 10:06 Glucose (UA)(Auto) 0 mg/dL 01/19/24 10:06 Urine Ketones (Auto) Negative 01/19/24 10:06 Urine Blood (Auto) 10 Supa/uL 01/19/24 10:06 Urine Nitrite (Auto) Negative 01/19/24 10:06 Urine Bilirubin (Auto) 0 mg/dL 01/19/24 10:06 Urine Urobilinogen (Auto) 0.2 mg/dL 01/19/24 10:06 Leukocyte Esterase (Auto) 0 Gilmer/uL 01/19/24 10:06 Date of Service: 12/16/23 US RETROPERITONEAL COMPLETE (RENAL) CLINICAL INFORMATION: Cystic kidney. History of left renal upper pole complex cyst. COMPARISON: CT urogram 12/05/2022, MR abdomen 09/16/2022, ultrasound abdomen 03/18/2022, renal ultrasound 09/21/2013. TECHNIQUE: Real-time imaging of the kidneys and adrenal glands do not. Limited visualization due to bowel gas. FINDINGS: RIGHT KIDNEY: 10.4 x 5.2 x 5.9 cm (SAG x AP x TRV). No hydronephrosis. No renal calculi. Renal cortical thickness is normal. Limited visualization. LEFT KIDNEY: 10.3 x 5.3 x 5.0 cm (SAG x AP x TRV). No hydronephrosis. No renal calculi. Renal cortical thickness is normal. Limited visualization. 2.1 cm left renal exophytic upper pole complex cyst versus solid mass with diffuse internal echoes and possible septation is difficult to fully characterize due to limited visualization. MR abdomen of 09/16/2022 demonstrated a 1.7 cm upper pole lesion for which biopsy was recommended. 5.8 x 5.3 x 5.6 cm lower pole cyst with septations measured 5 x 6.5 cm on MR of 2022. IMPRESSION: A 2.1 cm left renal exophytic upper pole complex cystic lesion is difficult to characterize as detailed above. MR abdomen of 09/16/2022 demonstrated a 1.7 cm upper pole lesion for which biopsy was recommended. CT urogram of 12/05/2022 demonstrated a 1.8 cm cyst in the upper pole felt to possibly represent a proteinaceous cyst. 5.8 cm left renal lower pole cyst with septations stable in size compared with prior CT urogram and MRI. Date of Service: 12/05/22 EXAMINATION: CT ABDOMEN AND PELVIS WITHOUT AND WITH CONTRAST?? CLINICAL INFORMATION: Microscopic hematuria.?? COMPARISON: MR abdomen dated 09/16/2022 and 10/06/2014; abdominal ultrasound dated 03/18/2022.? ?? FINDINGS: LUNG BASES: There is mild bibasilar linear scar/subsegmental atelectasis.?? LIVER, GALLBLADDER, AND BILIARY TREE: The liver is normal in size and shape. Mild hepatic steatosis is redemonstrated. Previously documented hepatic hemangiomas are redemonstrated. No new focal hepatic lesion or biliary ductal dilatation is present. The gallbladder is unremarkable with no evidence of radiopaque gallstones, gallbladder wall thickening, or obvious pericholecystic inflammatory changes.?? PANCREAS: Unremarkable.?? SPLEEN: Unremarkable.?? ADRENAL GLANDS: Unremarkable.?? KIDNEYS AND URETERS: The kidneys are normal in size, shape, and attenuation. No hydronephrosis, hydroureter, or calculi seen. No perinephric stranding.? At the upper pole of the left kidney (8:25), an 8 mm benign, simple cyst is redemonstrated. At the lower pole of the left kidney (3:30), a 6.6 cm low-attenuation cyst with septations is redemonstrated, with stable mildly complex (Bosniak 2) appearance. This is likely benign and requires no imaging follow-up. At the upper pole of the left kidney (3:14 and 8:23), a 1.8 cm nonenhancing hemorrhagic/proteinaceous cyst is redemonstrated, with precontrast Hounsfield value of 85.5 units and postcontrast Hounsfield value of 85.4 units. This is consistent with the MRI findings of 10/06/2014. BLADDER: There is diffuse bladder wall thickening to 7 mm. No bladder wall mass or calculus is seen.?? GASTROINTESTINAL TRACT: There is mild diverticulosis, without acute diverticulitis. No bowel obstruction, free intraperitoneal air or abscess is seen. There is no focal bowel wall thickening. The vermiform appendix appears normal.?? ABDOMINAL WALL: There are small fat-containing umbilical and left inguinal hernias.?? LYMPH NODES: There is mesenteric fat stranding. There are shotty, nonpathologically enlarged mesenteric lymph nodes. No sizable abdominopelvic lymphadenopathy is seen. VASCULAR: There is moderate aortoiliac atherosclerotic calcification. No abdominal aortic aneurysm is seen. PELVIC VISCERA: The prostate and seminal vessicles are unremarkable.?? OSSEUS STRUCTURES: There is multi-level thoracolumbar spondylosis. No acute or aggressive osseous abnormality is seen.?? IMPRESSION: 1. There is mild hepatic steatosis. Previously described hepatic hemangiomas are redemonstrated. ?2. There are left renal cysts as detailed. These include a mildly complex (Bosniak 2) interpolar cyst, which require no imaging follow-up, together with a nonenhancing hemorrhagic cyst at the upper pole of the left kidney. 3. There is diffuse bladder wall thickening, suggesting possible cystitis. Recommend correlation with the patient's most recent urinalysis. 4. Subtle fat stranding of the central mesentery with numerous shotty lymph nodes seen, a deysi mesentery appearance. This has a broad differential which includes mesenteric adenitis. It has been described with lymphoma although typically there is a history of lymphoma or evidence of lymphadenopathy elsewhere, not seen on this patient. In the absence of symptoms, it is of uncertain etiology or clinical significance. If there is continued clinical concern, a follow-up CT scan could be obtained in 3-6 months. 5. There is mild diverticulosis, without acute diverticulitis. 6. There are small fat-containing umbilical and left inguinal hernias. 7. There is multi-level thoracolumbar spondylosis. Assessment & Plan Assessment & Plan (1) Microscopic hematuria: Code(s): R31.29 - Other microscopic hematuria Category: Medical (2) Complex renal cyst: Code(s): N28.1 - Cyst of kidney, acquired Category: Medical (3) BPH loc w urin obs/LUTS: Code(s): N40.1 - Benign prostatic hyperplasia with lower urinary tract symptoms Category: Medical Plan No new LUTS. I reviewed renal US 12/16/23- Bosniak I and II left renal cysts are stable. PSA 09/17/2023-- 0.46 ng/mL. UA trace blood. Will fu in one year. Orders: Orders AMB Urinalysis Automated Today Z13.9 - Encounter for screening, unspecified Patient Instructions: The patient had an opportunity to ask questions regarding treatment plan. The patient expressed understanding and agreement with the above treatment plan. The patient is aware they should contact our office by phone for worsening of their current condition or the appearance of new symptoms. Compliance is encouraged with any medications and followup testing that is ordered. It is a privilege to be allowed the opportunity to participate in the urologic care of your patient. If you have any questions or concerns regarding treatment for the above conditions please do not hesitate to contact me. The office telephone contact is [phone]. This note is constructed in part using voice recognition software. While every effort has been made to ensure accuracy implementation project coordinator errors may have been included. Yours sincerely, Julio Benjamin MD Coding Level of Care Code Est Pt Level 3 (30644) Diagnoses Microscopic hematuria R31.29 Complex renal cyst N28.1 BPH loc w urin obs/LUTS N40.1
== END 2024-01-19 11:06 | disposition home or self-care (01) ==
PROVIDERS: PCP Physician Assistant; Visit Provider Urology
DX: R31.29 Other microscopic hematuria (principal); N28.1 Cyst of kidney, acquired; N40.1 Benign prostatic hyperplasia with lower urinary tract symptoms; Z13.9 Encounter for screening, unspecified
CPT/HCPCS: 99213

== ENCOUNTER → 2024-01-19 09:55 | Outpatient (BNVA) | payer MEDICARE, SELFPAY | PROVIDERS: PCP Physician Assistant; Visit Provider Urology | DX: N40.1 Benign prostatic hyperplasia with lower urinary tract symptoms (principal); N13.8 Other obstructive and reflux uropathy; R31.29 Other microscopic hematuria; N28.1 Cyst of kidney, acquired | CPT/HCPCS: 81003; 99212 ==

== ENCOUNTER 2024-01-29 08:32 | Outpatient (REF) | payer MEDICARE, SELFPAY ==
[2024-01-29 11:19] LABS: Cholesterol 153 mg/dL (<200); HDL Cholesterol 44 mg/dL (>40); LDL Cholesterol Calculated 90 mg/dL (<100); Triglycerides 98 mg/dL (<150)
[2024-01-29 11:20] LABS: Uric Acid 6.5 mg/dL (3.4-7.0)
[2024-01-30 18:22] LABS: CRP High Sensitivity 0.6 mg/L
== END 2024-01-29 08:33 | disposition home or self-care (01) ==
LOC: HO.10HDL 08:32
PROVIDERS: Physician Assistant; Visit Provider Internal Medicine Cardiovascular Disease
DX: E78.5 Hyperlipidemia, unspecified (principal); M79.674 Pain in right toe(s); I25.10 Atherosclerotic heart disease of native coronary artery without angina pectoris
CPT/HCPCS: 36415; 80061; 84550; 86141

== ENCOUNTER 2024-02-02 14:53 | Outpatient (AMB) | payer MEDICARE, SELFPAY ==
[2024-02-02 15:10] VITALS: BP 134/70; PULSE 61; O2SAT 97; BMI 27.2
--- NOTE | 2024-02-02 15:10 | MHC.OFFVIS ---
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 The patient is a 68-year-old gentleman presenting with worsening shortness of breath and cough. Apparently the patient has had allergies multiple utilizing a does suffer from nasal polyposis. He has been getting allergy shots for many years. He has been developing worsening shortness of breath in addition to cough. Moderate severity. He has been very active most of his life but now he has been noticing more shortness of breath with going up a flight of stairs or an incline. The patient was evaluated previously with pulmonary function studies and was told to have COPD . The patient was then seen by his ENT doctor. He was given a rescue inhaler at some point he was also given an Advair HFA inhaler. Had been using them regularly although he did not see any significant difference so he stopped using the Advair regularly. The patient also recently underwent a pulmonary function study at [facility] which we personally reviewed. It appears the patient does have a significant obstruction consistent mild obstructive lung disease. Likely uncontrolled asthma with significant small airways disease and air trapping. The patient has indeed nasal polyposis suggesting a component of allergic asthma. No known adverse reaction to aspirin. Therefore, less likely samter's triad. He has had elevations in his eosinophils and does have issues with significant allergies. Therefore, the patient may be a good candidate for biologics in the near future if he does not respond to respiratory therapy. No recent imaging studies review at this time. Will have the patient continue the Advair. I did instruct him how to use a spacer and he will rinse after using the Advair to minimize adverse effects like he had previously. In addition to the will add Singulair. He has also been using Zyrtec to see if we can maximize his allergy therapy in order to improve his symptoms. The patient will return after having x-rays and blood work. He usually goes to [place] for the winter so will see him before his trip. At that point will decide about biologic therapy. The patient does get allergy shots. However, returns he goes to [place] he stops the allergy shots in the may be some issues with the fragmentation of the shots. As far as imaging studies of the patient does not have any recent x-rays to review. He did have a CT scan of the coronary arteries back in 2018 at [facility] which I personally reviewed. The patient did have evidence of bronchitis and some bronchiectatic looking airways although very limited lung windows. Will await his chest x-ray. [facility] Medical History (Updated 02/02/24 @ 22:18 by Aubrey Cortez MD) Nasal polyps Allergies HTN (hypertension) HLD (hyperlipidemia) CAD (coronary artery disease) Surgical History Hx of removal of cyst History of cystostomy History of shoulder surgery History of nasal surgery Family History Father CAD (coronary artery disease) Mother Healthy adult Brother Melanoma Social History Housing: House Alcohol intake: current Alcohol intake frequency: a few times a week Alcohol type: wine Patient Tobacco Use Status: Never used Tobacco e-Cigarette/Vaping Use: Never Used Second Hand Smoke Exposure: No service: No Current occupational status: retired Current occupation: Retired Cognitive needs: No Hearing needs: No Vision needs: Yes (glasses) Review of Systems Const Denies chills, Denies fatigue, Denies fever(s), Denies frequent falls, Denies weakness, Denies weight gain and Denies weight loss ENT Denies dizziness, Reports nasal congestion and Reports nasal discharge Card Denies chest pain, Denies leg edema, Denies lightheadedness, Denies palpitations, Denies dyspnea, Reports dyspnea on exertion, Denies orthopnea and Denies other (loss of consciousness) Resp Denies cough, Denies dyspnea, Reports dyspnea on exertion and Reports wheezing GI Denies hematochezia and Denies change in stool character Musc Denies abnormal gait, Denies muscle weakness, Denies numbness, Denies radiating pain into limb and Denies tingling Neuro Denies abnormal gait, Denies dizziness, Denies frequent falls, Denies numbness, Denies tingling and Denies weakness Endo Denies fatigue and Denies palpitations Aller/Immun Reports wheezing Physical Exam Vital Signs: Last Vital Signs Pulse 61 02/02/24 15:10 BP 134/70 02/02/24 15:10 Pulse Ox 97 02/02/24 15:10 Oxygen Delivery Method Room Air 02/02/24 15:10 BMI result Body Mass Index 27.2 Const General: cooperative, comfortable, no acute distress, alert and awake Nutritional Appearance: average body habitus Orientation/consciousness: patient oriented x3 Neck Neck: Yes trachea midline and Yes supple Resp Effort & Inspection: normal respiratory effort Auscultation: clear to auscultation bilaterally and diminished lung sounds Cardio Rate: regular rate Rhythm: regular rhythm Heart sounds: S1 normal heart sound present and S2 normal heart sound present GI Auscultation: normal bowel sounds Skin General skin exam: no rashes or lesions noted Neuro General: patient oriented x3 and no focal motor deficits Extrem General: Yes no clubbing, cyanosis or edema Psych Appearance: grossly normal Assessment & Plan Assessment & Plan (1) Nasal polyps: Code(s): J33.9 - Nasal polyp, unspecified Category: Medical (2) Allergies: Code(s): T78.40XA - Allergy, unspecified, initial encounter Category: Medical Qualifiers: Encounter type: initial encounter Qualified Code(s): T78.40XA - Allergy, unspecified, initial encounter (3) Asthma: Comment: uncontrolled Code(s): J45.909 - Unspecified asthma, uncomplicated Category: Medical Qualifiers: Asthma severity: severe Asthma persistence: persistent Asthma complication type: uncomplicated Qualified Code(s): J45.50 - Severe persistent asthma, uncomplicated Plan continue Advair HFA with spacer (provided) May benefit from LAMA ROCÍO as needed start Singulair CXR Bloodwork/Allergy testing Consider Biologic therapy F/U 2 months Orders: Orders Complete Blood Count Auto Diff Today J33.9 - Nasal polyp, unspecified, T78.40XA - Allergy, unspecified, initial encounter Resp Allergy Profile Region I Today J33.9 - Nasal polyp, unspecified, R91.1 - Solitary pulmonary nodule, T78.40XA - Allergy, unspecified, initial encounter Erythrocyte Sedimentation Rate Today J33.9 - Nasal polyp, unspecified, T78.40XA - Allergy, unspecified, initial encounter Immunoglobulin E Today J33.9 - Nasal polyp, unspecified, T78.40XA - Allergy, unspecified, initial encounter Hypersensitive Pneumonitis Prf Today J33.9 - Nasal polyp, unspecified, R91.8 - Other nonspecific abnormal finding of lung field, T78.40XA - Allergy, unspecified, initial encounter Medications: New montelukast (Singulair) 10 mg PO BEDTIME 30 tabs 11RF 30 days J45.909 - Unspecified asthma, uncomplicated Coding Level of Care Code New Pt Level 4 (10400) Diagnoses Nasal polyps J33.9 Allergy, initial encounter T78.40XA Encounter type: initial encounter Severe persistent asthma without complication J45.50 Asthma severity: severe Asthma persistence: persistent Asthma complication type: uncomplicated Time Spent (min) 40
== END 2024-02-02 15:51 | disposition home or self-care (01) ==
PROVIDERS: PCP Physician Assistant; Referring Provider Otolaryngology; Visit Provider Hospitalist
DX: J33.9 Nasal polyp, unspecified (principal); T78.40XA Allergy, unspecified, initial encounter; J45.50 Severe persistent asthma, uncomplicated
CPT/HCPCS: 99204

== ENCOUNTER → 2024-02-02 14:53 | Outpatient (BNVA) | payer MEDICARE, SELFPAY | PROVIDERS: PCP Physician Assistant; Visit Provider Hospitalist | DX: J45.50 Severe persistent asthma, uncomplicated (principal); J33.9 Nasal polyp, unspecified; T78.40XA Allergy, unspecified, initial encounter | CPT/HCPCS: 99202 ==

== ENCOUNTER → 2024-02-04 08:53 | Outpatient (BNVA) | payer MEDICARE, SELFPAY | PROVIDERS: PCP Physician Assistant; Visit Provider Internal Medicine Cardiovascular Disease ==

== ENCOUNTER 2024-02-17 08:34 | Outpatient (REF) | payer MEDICARE, SELFPAY ==
[2024-02-17 09:08] LABS: MANUAL DIFF FLAG NO
[2024-02-17 09:24] LABS: Basophils Absolute Auto 0.1 X10*3/uL (0.0-0.2); Basophils Percent Auto 0.8 % (0-2); Eosinophils Absolute Auto 0.3 X10*3/uL (0.0-0.4); Eosinophils Percent Auto 4.7 % (0-4); Hemoglobin 16.1 g/dl (14.0-18.0); Imm Gran Abs Auto 0.03 X10*3/uL (0.00-0.03); Imm Gran Pct Auto 0.5 % (0.0-0.4); Lymphocytes Absolute Auto 1.8 X10*3/uL (1.2-4.9); Lymphocytes Percent Auto 29.2 % (20-40); Mean Corpuscular Hemoglobin 31.1 pg (27.0-33.0); Mean Corpuscular Volume 88.8 fL (80.0-98.0); Mean Platelet Volume 8.8 fL (9.4-12.4); Monocytes Absolute Auto 0.5 X10*3/uL (0.1-1.2); Monocytes Percent Auto 8.7 % (2-11); Neutrophils Absolute Auto 3.4 x10*3/uL (2.0-8.3); Neutrophils Percent Auto 56.1 % (45-73); Platelet Count 304 X10*3/uL (160-400); Red Blood Count 5.18 X10*6/uL (4.60-5.80); Red Cell Distribution Width 11.1 % (11.0-16.0); White Blood Count 6.1 X10*3/uL (4.8-10.8)
[2024-02-17 10:01] LABS: Erythrocyte Sedimentation Rate 7 MM/HR (0-15)
[2024-02-17 10:30] LABS: Albumin Level 4.4 g/dL (3.5-5.0); Alkaline Phosphatase 77 U/L (39-117); Anion Gap 12 (12-20); Aspartate Amino Transferase 30 U/L (5-37); Bilirubin Total 0.8 mg/dL (0.0-1.0); Blood Urea Nitrogen 13 mg/dL (9-16); Calcium 9.9 mg/dL (8.4-10.2); Carbon Dioxide 29 mmol/L (22-29); Chloride 103 mmol/L (96-108); Cholesterol 164 mg/dL (<200); Estimated Glomerular Filt Rate > 60; Glucose Fasting 120 mg/dL (60-99); HDL Cholesterol 41 mg/dL (>40); LDL Cholesterol Calculated 95 mg/dL (<100); Magnesium 2.1 mg/dL (1.6-2.6); Phosphorus 3.1 mg/dL (2.7-4.5); Sodium 140 mmol/L (135-145); Total Protein 7.3 g/dL (6.5-8.0); Triglycerides 143 mg/dL (<150)
[2024-02-17 10:52] LABS: Alanine Aminotransferase 48 U/L (0-40)
[2024-02-19 18:57] LABS: Class Alternaria alternata 0; Class Aspergillus fumigatus 0; Class Bermuda Grass 0; Class Birch 0; Class Cat Dander 0; Class Cladosporium herbarum 0; Class Cockroach 0/1; Class Common Ragweed 0; Class Cottonwood 0; Class Derm. pterony 1; Class Dermatophagoides farinae 2; Class Dog Dander 0; Class Elm 0; Class Maple Box Elder 0; Class Mountain Cedar 0; Class Mouse Urine Protein 0; Class Mugwort 0; Class Oak 0; Class Penicillium crysogenum 0; Class Rough Pigweed 0; Class Sheep Sorrel 0; Class Sycamore 0; Class Timothy Grass 0; Class Walnut Tree 0; Class White Ash 0; Class White Mulberry 0; D001 IgE D pteronyssinus 0.62 kU/L; D002 - IgE D farinae 0.93 kU/L; E001 - IgE Cat Dander <0.10 kU/L; E005 - IgE Dog Dander <0.10 kU/L; E072-IgE Mouse Urine <0.10 kU/L; G002 IgE Bermuda Grass <0.10 kU/L; G006 - IgE Timothy Grass <0.10 kU/L; Immunoglobulin E 135 kU/L (<OR=114); M001 IgE Penicillium chrysogen <0.10 kU/L; M002 - IgE Cladosporium herbar <0.10 kU/L; M003 - IgE Aspergillus fumigat <0.10 kU/L; M006 - IgE Alternaria alternat <0.10 kU/L; T001 IgE Maple/Box Elder <0.10 kU/L; T003 IgE Common Silver Birch <0.10 kU/L; T006 - IgE Cedar, Mountain <0.10 kU/L; T007 - IgE Oak, White <0.10 kU/L; T008 IgE Elm, American <0.10 kU/L; T010 - IgE Walnut <0.10 kU/L; T011 - IgE Maple Leaf Sycamore <0.10 kU/L; T014 - IgE Cottonwood <0.10 kU/L; T015 - IgE Ash, White <0.10 kU/L; T070 - IgE White Mulberry <0.10 kU/L; W001 - IgE Ragweed, Short <0.10 kU/L; W006 - IgE Mugwort <0.10 kU/L; W014 IgE Pigweed, Common <0.10 kU/L; W018 IgE Sheep Sorrel <0.10 kU/L
[2024-02-27 14:02] LABS: Asperg fumigatus Precip Abs NEGATIVE (NEGATIVE); Micropoly faeni Abs NEGATIVE (NEGATIVE); Pigeon serum Abs NEGATIVE (NEGATIVE); Saccharo pora viridis Abs NEGATIVE (NEGATIVE); Thermo candidus Abs NEGATIVE (NEGATIVE); Thermoa vulgaris #1 NEGATIVE (NEGATIVE)
== END 2024-02-17 08:35 | disposition home or self-care (01) ==
LOC: HO.LAB 08:34
PROVIDERS: PCP Physician Assistant; Visit Provider Hospitalist
DX: I10 Essential (primary) hypertension (principal); M79.10 Myalgia, unspecified site; I25.10 Atherosclerotic heart disease of native coronary artery without angina pectoris; J43.9 Emphysema, unspecified; T78.40XA Allergy, unspecified, initial encounter; J33.9 Nasal polyp, unspecified; R91.1 Solitary pulmonary nodule; R91.8 Other nonspecific abnormal finding of lung field
CPT/HCPCS: 36415; 71046; 80053; 80061; 82785; 83735; 84100; 85025; 85652; 86003; 86331; 86606; 86609

== ENCOUNTER 2024-03-04 10:29 | Outpatient (AMB) | payer MEDICARE, SELFPAY ==
--- NOTE | 2024-03-04 10:32 | MHC.OFFVIS ---
Vital Signs 03/04/24 10:33 Height 5 ft 10 in Weight 191 lb 12.835 oz BMI 27.5 BP 122/64 Blood Pressure Location Rt brachial Position Sitting Pulse 68 Pulse Source Pulse Oximeter Pulse Oximetry (%) 96 Oxygen Delivery Method Room Air Intake Visit Reasons: COPD Allergies fire ants Allergy (Severe, Uncoded 03/04/24 10:35) Anaphylaxis HPI Comments Details: The patient is a 68-year-old gentleman presenting with worsening shortness of breath and cough. Apparently the patient has had allergies multiple utilizing a does suffer from nasal polyposis. He has been getting allergy shots for many years. He has been developing worsening shortness of breath in addition to cough. Moderate severity. He has been very active most of his life but now he has been noticing more shortness of breath with going up a flight of stairs or an incline. The patient was evaluated previously with pulmonary function studies and was told to have COPD . The patient was then seen by his ENT doctor. He was given a rescue inhaler at some point he was also given an Advair HFA inhaler. Had been using them regularly although he did not see any significant difference so he stopped using the Advair regularly. The patient also recently underwent a pulmonary function study at [facility] which we personally reviewed. It appears the patient does have a significant obstruction consistent mild obstructive lung disease. Likely uncontrolled asthma with significant small airways disease and air trapping. The patient has indeed nasal polyposis suggesting a component of allergic asthma. No known adverse reaction to aspirin. Therefore, less likely samter's triad. He has had elevations in his eosinophils and does have issues with significant allergies. Therefore, the patient may be a good candidate for biologics in the near future if he does not respond to respiratory therapy. No recent imaging studies review at this time. Will have the patient continue the Advair. I did instruct him how to use a spacer and he will rinse after using the Advair to minimize adverse effects like he had previously. In addition to the will add Singulair. He has also been using Zyrtec to see if we can maximize his allergy therapy in order to improve his symptoms. The patient will return after having x-rays and blood work. He usually goes to [place] for the winter so will see him before his trip. At that point will decide about biologic therapy. The patient does get allergy shots. However, returns he goes to [place] he stops the allergy shots in the may be some issues with the fragmentation of the shots. As far as imaging studies of the patient does not have any recent x-rays to review. He did have a CT scan of the coronary arteries back in 2018 at [facility] which I personally reviewed. The patient did have evidence of bronchitis and some bronchiectatic looking airways although very limited lung windows. Will await his chest x-ray. 03/04/2024 the patient is here for a pulmonary follow-up visit. He is overall doing okay. He completed the Advair. He needs to get a replacement. The patient does have significant nasal congestion continues have shortness of breath chest tightness. Moderate severity. We did look at the blood work. He does have an elevated eosinophil count and also has an elevated IgE count consistent with allergic asthma and also nasal polyposis. He will be a good candidate for Dupixent we will be able to treat his asthma symptoms nasal polyps and improve his quality of life. The patient will be switch over to Symbicort in the meantime. He is going to continue the singular. He feels like it affects of sleep so he can take it in the morning if so. He is going to be going to [place] soon. He is going to consider either continuing his allergy shots or going on Dupixent. She is going to call me if he decides to do so. In the meantime will switch over his fluticasone nasal spray 2 Astelin nasal sprays to see this is a little bit more helpful since the fluticasone is not doing much right now. Also do the combination but at this point will try to simplify the regimen since she does not like to take too many medications. [facility] Medical History (Updated 02/02/24 @ 22:18 by Aubrey Cortez MD) Nasal polyps Allergies HTN (hypertension) HLD (hyperlipidemia) CAD (coronary artery disease) Surgical History Hx of removal of cyst History of cystostomy History of shoulder surgery History of nasal surgery Family History Father CAD (coronary artery disease) Mother Healthy adult Brother Melanoma Social History Housing: House Alcohol intake: current Alcohol intake frequency: a few times a week Alcohol type: wine Patient Tobacco Use Status: Never used Tobacco e-Cigarette/Vaping Use: Never Used Second Hand Smoke Exposure: No service: No Current occupational status: retired Current occupation: Retired Cognitive needs: No Hearing needs: No Vision needs: Yes (glasses) Review of Systems Const Denies chills, Denies fatigue, Denies fever(s), Denies frequent falls, Denies weakness, Denies weight gain and Denies weight loss ENT Denies dizziness, Reports nasal congestion and Reports nasal discharge Card Denies chest pain, Denies leg edema, Denies lightheadedness, Denies palpitations, Denies dyspnea, Reports dyspnea on exertion, Denies orthopnea and Denies other (loss of consciousness) Resp Denies cough, Denies dyspnea, Reports dyspnea on exertion and Reports wheezing GI Denies hematochezia and Denies change in stool character Musc Denies abnormal gait, Denies muscle weakness, Denies numbness, Denies radiating pain into limb and Denies tingling Neuro Denies abnormal gait, Denies dizziness, Denies frequent falls, Denies numbness, Denies tingling and Denies weakness Endo Denies fatigue and Denies palpitations Aller/Immun Reports wheezing Physical Exam Vital Signs: Last Vital Signs Pulse 68 03/04/24 10:33 BP 122/64 03/04/24 10:33 Pulse Ox 96 03/04/24 10:33 Oxygen Delivery Method Room Air 03/04/24 10:33 BMI result Body Mass Index 27.5 Const General: cooperative, comfortable, no acute distress, alert and awake Nutritional Appearance: average body habitus Orientation/consciousness: patient oriented x3 Neck Neck: Yes trachea midline and Yes supple Resp Effort & Inspection: normal respiratory effort Auscultation: no wheezes and diminished lung sounds Cardio Rate: regular rate Rhythm: regular rhythm Heart sounds: S1 normal heart sound present and S2 normal heart sound present GI Auscultation: normal bowel sounds Skin General skin exam: no rashes or lesions noted Neuro General: patient oriented x3 and no focal motor deficits Extrem General: Yes no clubbing, cyanosis or edema Psych Appearance: grossly normal Assessment & Plan Assessment & Plan (1) Nasal polyps: Code(s): J33.9 - Nasal polyp, unspecified Category: Medical (2) Allergies: Code(s): T78.40XA - Allergy, unspecified, initial encounter Category: Medical Qualifiers: Encounter type: initial encounter Qualified Code(s): T78.40XA - Allergy, unspecified, initial encounter (3) Asthma: Comment: uncontrolled Code(s): J45.909 - Unspecified asthma, uncomplicated Category: Medical Qualifiers: Asthma complication type: uncomplicated Asthma persistence: persistent Asthma severity: severe Qualified Code(s): J45.50 - Severe persistent asthma, uncomplicated Plan stop Advair HFA with spacer (provided) start Symbicort start astelin nasal spray May benefit from LAMA ROCÍO as needed continue Singulair would be a good candidate for Dupixent F/U 4-5 months Medications: New budesonide-formoterol 160-4.5 mcg/actuation (Symbicort) 2 puffs inhalation BID 10.2 grams 11RF 30 days J44.89 - Other specified chronic obstructive pulmonary disease azelastine administer into each nostril 2 sprays intranasal BID 30 mL 6RF 30 days Coding Level of Care Code Est Pt Level 4 (36199) Complex EM visit Add On G2211 Diagnoses Nasal polyps J33.9 Allergy, initial encounter T78.40XA Encounter type: initial encounter Severe persistent asthma without complication J45.50 Asthma complication type: uncomplicated Asthma persistence: persistent Asthma severity: severe Time Spent (min) 20
[2024-03-04 10:33] VITALS: BP 122/64; PULSE 68; O2SAT 96; BMI 27.5
== END 2024-03-04 11:19 | disposition home or self-care (01) ==
PROVIDERS: PCP Physician Assistant; Visit Provider Hospitalist
DX: J33.9 Nasal polyp, unspecified (principal); T78.40XA Allergy, unspecified, initial encounter; J45.50 Severe persistent asthma, uncomplicated
CPT/HCPCS: 99214; G2211

== ENCOUNTER → 2024-03-04 10:29 | Outpatient (BNVA) | payer MEDICARE, SELFPAY | PROVIDERS: PCP Physician Assistant; Visit Provider Hospitalist | DX: J44.89 Other specified chronic obstructive pulmonary disease (principal); J45.50 Severe persistent asthma, uncomplicated; J33.9 Nasal polyp, unspecified; T78.40XA Allergy, unspecified, initial encounter | CPT/HCPCS: 99212 ==

== ENCOUNTER 2024-03-05 09:56 | Outpatient (REF) | payer MEDICARE, SELFPAY | END 2024-03-05 09:57 | disposition home or self-care (01) | LOC: HO.XRAY 09:56 | PROVIDERS: PCP Physician Assistant; Visit Provider Physician Assistant | DX: M53.3 Sacrococcygeal disorders, not elsewhere classified (principal) | CPT/HCPCS: 72220 ==

== ENCOUNTER → 2024-03-05 10:00 | Outpatient (BNV) | payer MEDICARE, SELFPAY | PROVIDERS: PCP Physician Assistant; Visit Provider Radiology Diagnostic Radiology | DX: M53.3 Sacrococcygeal disorders, not elsewhere classified (principal) | CPT/HCPCS: 72220 ==

== ENCOUNTER 2024-09-21 08:39 | Outpatient (REF) | payer MEDICARE, SELFPAY ==
--- OUTSIDE RECORDS SUMMARY | 2024-09-21 09:00 | XMS_ITS ---
Author Organization [facility] Address [address] [place] [address] Care Team Providers Care Qc Chemist Name Role Phone David Madden Primary Care Provider Unavailab Trey Ruffin Unavailable [phone] Allergies Allergen (clinical drug ingredient) Drug/Non Drug [...] Encounters Encounter Location Date Provider Diagnosis [facility] [address] [place] [address] 01/08/2024 Trey Gaviria Plan Of Treatment No Information Progress Notes * Raquel PEREZhDOB: 7 (68 yo M)Acc No.[id number]:01/08/2024 Progress Notes Patient:?Lalo PEREZ Provider:?Trey Gaviria DPM :1955???Age:68 Y???Sex:Male Ricardo e:01/08/2024 Address:[address] [place], [place] [phone] Pcp:David Madden Subjective: * Chief Complaints: * [...] Gaviria DPM Date:?2023 Generated for Devendra clark/Lee/Zulma on:?09/21/2024 08:59 AM EDT
[2024-09-21 09:58] LABS: Hematocrit 43.7 % (42.0-52.0); Hemoglobin 15.3 g/dl (14.0-18.0); Mean Corpuscular Hemoglobin 31.1 pg (27.0-33.0); Mean Corpuscular Volume 88.8 fL (80.0-98.0); Mean Platelet Volume 8.9 fL (9.4-12.4); Platelet Count 298 X10*3/uL (160-400); Red Blood Count 4.92 X10*6/uL (4.60-5.80); Red Cell Distribution Width 11.3 % (11.0-16.0); White Blood Count 5.9 X10*3/uL (4.8-10.8)
[2024-09-21 10:14] LABS: Alanine Aminotransferase 24 U/L (0-40); Albumin Level 4.4 g/dL (3.5-5.0); Alkaline Phosphatase 68 U/L (39-117); Anion Gap 7 (12-20); Aspartate Amino Transferase 20 U/L (5-37); Bilirubin Total 0.8 mg/dL (0.0-1.0); Blood Urea Nitrogen 11 mg/dL (9-16); Calcium 9.2 mg/dL (8.4-10.2); Carbon Dioxide 30 mmol/L (22-29); Chloride 108 mmol/L (96-108); Cholesterol 157 mg/dL (<200); Estimated Glomerular Filt Rate > 60; Glucose Fasting 117 mg/dL (60-99); HDL Cholesterol 40 mg/dL (>40); LDL Cholesterol Calculated 95 mg/dL (<100); Potassium 3.9 mmol/L (3.3-5.1); Sodium 141 mmol/L (135-145); Total Protein 6.9 g/dL (6.5-8.0); Triglycerides 114 mg/dL (<150)
[2024-09-21 10:37] LABS: Prostate Specific Antigen Scr 0.48 ng/mL (<0.05-4.0)
[2024-09-21 11:20] LABS: Creatinine Urine 73.54 mg/dL; Microalbumin Urine < 5.0 mg/L
== END 2024-09-21 08:40 | disposition home or self-care (01) ==
LOC: HO.10HDL 08:39
PROVIDERS: Visit Provider Physician Assistant
DX: I10 Essential (primary) hypertension (principal); E78.2 Mixed hyperlipidemia; Z12.5 Encounter for screening for malignant neoplasm of prostate; J45.50 Severe persistent asthma, uncomplicated; T78.40XA Allergy, unspecified, initial encounter; J33.9 Nasal polyp, unspecified; Z79.899 Other long term (current) drug therapy
CPT/HCPCS: 36415; 80053; 80061; 82043; 82570; 84153; 85027; 99212

== ENCOUNTER 2024-09-21 09:41 | Outpatient (AMB) | payer MEDICARE, SELFPAY ==
[2024-09-21 10:08] VITALS: BP 124/60; PULSE 76; O2SAT 96; BMI 27.8
--- NOTE | 2024-09-21 10:08 | A.OFFVIS_ITS ---
Vital Signs 09/21/24 10:08 Height 5 ft 10 in Weight 194 lb 0.108 oz BMI 27.8 BP 124/60 Blood Pressure Location Lt brachial Position Sitting Pulse 76 Pulse Source Pulse Oximeter Pulse Oximetry (%) 96 Oxygen Delivery Method Room Air Intake Visit Reasons: COPD Crew Member Required: No Accompanied by: Self / Same As Patient Allergies fire ants Allergy (Severe, Uncoded 03/04/24 10:35) Anaphylaxis HPI Comments Details: The patient is a 68-year-old gentleman presenting with worsening shortness of breath and cough. Apparently the patient has had allergies multiple utilizing a does suffer from nasal polyposis. He has been getting allergy shots for many years. He has been developing worsening shortness of breath in addition to cough. Moderate severity. He has been very active most of his life but now he has been noticing more shortness of breath with going up a flight of stairs or an incline. The patient was evaluated previously with pulmonary function studies and was told to have COPD . The patient was then seen by his ENT doctor. He was given a rescue inhaler at some point he was also given an Advair HFA inhaler. Had been using them regularly although he did not see any significant difference so he stopped using the Advair regularly. The patient al so recently underwent a pulmonary function study at [facility] which we personally reviewed. It appears the patient does have a significant obstruction consistent mild obstructive lung disease. Likely uncontrolled asthma with significant small airways disease and air trapping. The patient has indeed nasal polyposis suggesting a component of allergic asthma. No known adverse reaction to aspirin. Therefore, less likely samter's triad. He has had elevations in his eosinophils and does have issues with significant allergies. Therefore, the patient may be a good candidate for biologics in the near future if he does not respond to respiratory therapy. No recent imaging studies review at this time. Will have the patient continue the Advair. I did instruct him how to use a spacer and he will rinse after using the Advair to minimize adverse effects like he had previously. In addition to the will add Singulair. He has also been using Zyrtec to see if we can maximize his allergy therapy in order to improve his symptoms. The patient will return after having x-rays and blood work. He usually goes to [place] for the winter so will see him before his trip. At that point will decide about biologic therapy. The patient does get allergy shots. However, returns he goes to [place] he stops the allergy shots in the may be some issues with the fragmentation of the shots. As far as imaging studies of the patient does not have any recent x-rays to review. He did have a CT scan of the coronary arteries back in 2018 at [facility] which I personally reviewed. The patient did have evidence of bronchitis and some bronchiectatic looking airways although very limited lung windows. Will await his chest x-ray. 03/04/2024 the patient is here for a pulmonary follow-up visit. He is overall doing okay. He completed the Advair. He needs to get a replacement. The patient does have significant nasal congestion continues have shortness of breath chest tightness. Moderate severity. We did look at the blood work. He does have an elevated eosinophil count and also has an elevated IgE count consistent with allergic asthma and also nasal polyposis. He will be a good candidate for Dupixent we will be able to treat his asthma symptoms nasal polyps and improve his quality of life. The patient will be switch over to Symbicort in the meantime. He is going to continue the singular. He feels like it affects of sleep so he can take it in the morning if so. He is going to be going to [place] soon. He is going to consider either continuing his allergy shots or going on Dupixent. She is going to call me if he decides to do so. In the meantime will switch over his fluticasone nasal spray 2 Astelin nasal sprays to see this is a little bit more helpful since the fluticasone is not doing much right now. Also do the combination but at this point will try to simplify the regimen since she does not like to take too many medications. 09/21/2024 the patient is here for pulmonary follow-up visit. Overall the patient is doing well. He has got back from [place]. While he is in [place] he is actually doing significantly better. His allergies are not an issue. Quickly when he comes to [facility] started developing worsening chest tightness wheezing in allergy symptoms. He does have an Advair HFA which is very helpful for him but he is extremely expensive. I do believe Dulera will be a better option for him anyway. Will send the prescription to the pharmacy. The patient also is doing allergy shots. He does have significant eosinophilia and also has an elevated IgE. Therefore he will be a good candidate for Dupixent if he does decide to switch over from allergy shots to biologic therapies. Will assess his response to Dulera when he comes back in the fall. He has any issues prior to that he will call for an earlier assessment. [facility] Medical History (Updated 02/02/24 @ 22:18 by Aubrey Cortez MD) Nasal polyps Allergies HTN (hypertension) HLD (hyperlipidemia) CAD (coronary artery disease) Surgical History Hx of removal of cyst History of cystostomy History of shoulder surgery History of nasal surgery Family History Father CAD (coronary artery disease) Mother Healthy adult Brother Melanoma Social History Housing: House Alcohol intake: current Alcohol intake frequency: a few times a week Alcohol type: wine Patient Tobacco Use Status: Never used Tobacco e-Cigarette/Vaping Use: Never Used Second Hand Smoke Exposure: No service: No Current occupational status: retired Current occupation: Retired Cognitive needs: No Hearing needs: No Vision needs: Yes (glasses) Review of Systems Const Denies chills, Denies fatigue, Denies fever(s), Denies frequent falls, Denies weakness, Denies weight gain and Denies weight loss ENT Denies dizziness, Reports nasal congestion and Reports nasal discharge Card Denies chest pain, Denies leg edema, Denies lightheadedness, Denies palpitations, Denies dyspnea, Reports dyspnea on exertion, Denies orthopnea and Denies other (loss of consciousness) Resp Denies cough, Denies dyspnea, Reports dyspnea on exertion and Reports wheezing GI Denies hematochezia and Denies change in stool character Musc Denies abnormal gait, Denies muscle weakness, Denies numbness, Denies radiating pain into limb and Denies tingling Neuro Denies abnormal gait, Denies dizziness, Denies frequent falls, Denies numbness, Denies tingling and Denies weakness Endo Denies fatigue and Denies palpitations Aller/Immun Reports wheezing Physical Exam Vital Signs: Last Vital Signs Pulse 76 09/21/24 10:08 BP 124/60 09/21/24 10:08 Pulse Ox 96 09/21/24 10:08 Oxygen Delivery Method Room Air 09/21/24 10:08 BMI result Body Mass Index 27.8 Const General: cooperative, comfortable, no acute distress, alert and awake Nutritional Appearance: average body habitus Orientation/consciousness: patient oriented x3 Neck Neck: Yes trachea midline and Yes supple Resp Effort & Inspection: normal respiratory effort Auscultation: no wheezes and diminished lung sounds Cardio Rate: regular rate Rhythm: regular rhythm Heart sounds: S1 normal heart sound present and S2 normal heart sound present GI Auscultation: normal bowel sounds Skin General skin exam: no rashes or lesions noted Neuro General: patient oriented x3 and no focal motor deficits Extrem General: Yes no clubbing, cyanosis or edema Psych Appearance: grossly normal Assessment & Plan Assessment & Plan (1) Nasal polyps: Code(s): J33.9 - Nasal polyp, unspecified Category: Medical (2) Allergies: Code(s): T78.40XA - Allergy, unspecified, initial encounter Category: Medical Qualifiers: Encounter type: initial encounter Qualified Code(s): T78.40XA - Allergy, unspecified, initial encounter (3) Asthma: Comment: uncontrolled Code(s): J45.909 - Unspecified asthma, uncomplicated Category: Medical Qualifiers: Asthma complication type: uncomplicated Asthma persistence: persistent Asthma severity: severe Qualified Code(s): J45.50 - Severe persistent asthma, uncomplicated Plan stop Advair HFA with spacer (provided) start Symbicort start astelin nasal spray May benefit from LAMA ROCÍO as needed continue Singulair would be a good candidate for Dupixent F/U 4-5 months Medications: New budesonide-formoterol 160-4.5 mcg/actuation (Symbicort) 2 puffs inhalation BID 10.2 grams 11RF 30 days J44.89 - Other specified chronic obstructive pulmonary disease mometasone-formoterol 200-5 mcg/actuation (Dulera) 2 puffs inhalation Q12H 13 grams 11RF 30 days Coding Level of Care Code Est Pt Level 4 (63354) Complex EM visit Add On G2211 Diagnoses Nasal polyps J33.9 Allergy, initial encounter T78.40XA Encounter type: initial encounter Severe persistent asthma without complication J45.50 Asthma complication type: uncomplicated Asthma persistence: persistent Asthma severity: severe Time Spent (min) 17
== END 2024-09-21 10:42 | disposition home or self-care (01) ==
LOC: HO.HPS 09:42
PROVIDERS: PCP Physician Assistant; Visit Provider Hospitalist
DX: J33.9 Nasal polyp, unspecified (principal); T78.40XA Allergy, unspecified, initial encounter; J45.50 Severe persistent asthma, uncomplicated
CPT/HCPCS: 99214; G2211

== ENCOUNTER 2024-09-27 07:50 | Outpatient (AMB) | payer MEDICARE, SELFPAY ==
--- OUTSIDE RECORDS SUMMARY | 2024-09-27 07:53 | XMS_ITS ---
Author Organization [facility] Address [address] [place] [phone] Care Team Providers Care Ludlow Machine Operator Name Role Phone David Madden Primary Care Provider Unavailab Trey Ruffin Unavailable [phone] Allergies Allergen (clinical drug ingredient) Drug/Non Drug [...] 01/08/2024 Encounters Encounter Location Date Provider Diagnosis [facility] [address] [place] [phone] 01/08/2024 Trey Gaviria Plan Of Treatment No Information Progress Notes * Raquel PEREZhDOB: [birth year] (68 yo M)Acc No.[id number]:01/08/2024 Progress Notes Patient:?Lalo PEREZ Provider:?Trey Gaviria DPM :1955???Age:68 Y???Sex:Male Ricardo e:01/08/2024 Address:[address] [place], [place] [id number] Pcp:David Madden Subjective: * Chief Complaints: * [...] Gaviria DPM Date:?2023 Generated for Devendra clark/Lee/Zulma on:?09/27/2024 07:53 AM EDT
--- NOTE | 2024-09-27 08:06 | MHC.PC.OV ---
Vital Signs 09/27/24 08:08 Height 5 ft 10 in Weight 195 lb BMI 28.0 BP 138/80 Blood Pressure Location Lt brachial Position Sitting Pulse 74 Pulse Source Pulse Oximeter Temp 97.3 F Temp Source Temporal Artery Scan Pulse Oximetry (%) 96 Oxygen Delivery Method Room Air Intake Visit Reasons: Annual Exam - see comments Intake Note: Patient is here today for a physical. 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 Manager Required: No Mask Design Engineer: Not Required per policy Accompanied by: Self / Same As Patient Allergies fire ants Allergy (Severe, Uncoded 09/27/24 08:17) Anaphylaxis Medication List - Last Reconciled 09/27/24 by David Madden PA-C albuterol sulfate 90 mcg/actuation (Ventolin HFA) 1 puff inhalation QID 30 days aspirin (Adult Low Dose Aspirin) 81 mg PO DAILY azelastine 2 sprays intranasal BID 30 days budesonide-formoterol 160-4.5 mcg/actuation (Symbicort) 2 puffs inhalation BID 30 days citalopram 10 mg PO DAILY 90 days fluticasone propion-salmeterol 115-21 mcg/actuation (Advair HFA) 2 puffs inhalation BID 30 days fluticasone propion-salmeterol 250-50 mcg/dose (Wixela Inhub) 1 inh inhalation Q12H 30 days lisinopril 40 mg PO DAILY lorazepam 0.5 mg PO BEDTIME PRN 10 days meloxicam 15 mg PO DAILY PRN 30 days mometasone-formoterol 200-5 mcg/actuation (Dulera) 2 puffs inhalation Q12H 30 days montelukast (Singulair) 10 mg PO BEDTIME 30 days pantoprazole 40 mg PO DAILY 90 days rosuvastatin (Crestor) 40 mg PO DAILY spironolactone 12.5 mg (1/2 x 25 mg) PO DAILY 90 days Tobacco use date assessed: 09/27/24 Fall risk assessment: No Falls in past year Last assessed Fall Risk: 09/27/24 Dental Screening Dental Screen Date: 09/27/24 Did you have a dental visit in the last 12 months?: Yes Did you have a dental problem in the last 6 months where you did not have access to dental care?: No Was dental information given to patient?: Patient has dentist HPI Annual Exam - see comments HPI Details Jeronimo is a? 68-year-old male here today for routine physical. ? Pmhx significant for Asthma, HTN, CAD, GERD, anxiety, bladder cystitis Concern--> reports over the last year year and a half he has had has low coccyx pain that comes and goes. Mostly he gets the pain when he sits down on hard surfaces for long periods of time. X-rays did show dysfunction and arthrosis in his SI joint. He is considering physical therapy and/or pain management for his SI joint ? Arthritis. Asthma:: Reports he still has some shortness of breath only an early mornings. Does use his albuterol inhaler and Advair inhaler which have been helpful. He reports albuterol inhaler causes some side effects. He would like to continue Advair inhaler and daily basis for maintenance for better control over his asthma/ COPD symptoms. Alcohol intake:? He does admit to drinking 2-3 glasses wine per day and does understand this may be a problem.? He will try to reduce the amount of alcohol use in takes. .. mild COPD:? He reports his breathing and shortness of breath have been better since he has been more physically active. He does use a albuterol inhaler on a p.r.n. basis which does help him with his breathing and chest tightness.? He does report being a former smoker and drug abuser.? .. ? HTN: Reports his blood pressure has been stable at home, reports his blood pressure was 130/80 today. He does report having multiple blood pressures at 140/90.? He reports he has been more physically active lately since he has been home.? Continues on lisinopril and hydrochlorothiazide with good effect. ? He will talk to his environmental programs specialist about? alternative blood pressure medication. .. Coronary artery disease:? Is followed by Cardiology and had a calcium score in the past that was elevated.? Patient denies any chest discomfort or palpitations.? Does have complaints of shortness of breath likely related to his asthma which may be allergy induced.? Is continuing on allergy shots. Most recently LDL 95 He does report taking rosuvastatin 20 mg daily though prescription is to be for 40 mg. .. Complex renal cyst: Has been found to have microscopic hematuria, followed by [facility]. Did undergo a cystoscopy which was essentially stable. Continues on surveillance imaging. ?? Vaccines he has received COVID vaccine , Needs Td , unclear he has had varicella infection as a child. Colonoscopy:? Scheduled for colonoscopy this year- 11/2024 Laboratory Tests 02/17/24 09/21/24 09:07 08:42 RBC 4.92 Hgb 15.3 Creatinine 0.96 Fasting Glucose 120 H 117 H LDL Cholesterol, C alc 95 95 Cholesterol 157 PSA Screen 0.48 Urine Microalbumin < 5.0 PFSH Medical History Nasal polyps Allergies HTN (hypertension) HLD (hyperlipidemia) CAD (coronary artery disease) Surgical History Hx of removal of cyst History of cystostomy History of shoulder surgery History of nasal surgery Family History Father CAD (coronary artery disease) Mother Healthy adult Brother Melanoma Social History Housing: House Alcohol intake: current Alcohol intake frequency: a few times a week Alcohol type: wine Patient Tobacco Use Status: Never used Tobacco e-Cigarette/Vaping Use: Never Used Second Hand Smoke Exposure: No service: No Current occupational status: retired Current occupation: Retired Cognitive needs: No Hearing needs: No Vision needs: Yes (glasses) Questionnaire PHQ-9 Over the last 2 weeks, how often have you been bothered by any of the following problems? 1. Little interest or pleasure in doing things: not at all 2. Feeling down, depressed, or hopeless: not at all 3. Trouble falling or staying asleep, or sleeping too much: several days 4. Feeling tired or having little energy: several days 5. Poor appetite or overeating: not at all 6. Feeling bad about yourself - or that you are a failure or have let yourself or your family down: not at all 7. Trouble concentrating on things, such as reading the newspaper or watching television: not at all 8. Moving or speaking so slowly that other people could have noticed. Or the opposite - being so fidgety or restless that you have been moving around a lot more than usual: not at all 9. Thoughts that you would be better off or of hurting yourself in some way: not at all Total score: 2 Depression Screening Interpretation: Positive Depression Screening Follow-up: Existing condition Depression Screening Done: Yes 08084 - PHQ-9 Billing: Yes Source: Developed by Drs. Rajeev Valerio, Michelle Flowers, Galen Solo and colleagues, with an educational aidan from [employer]. Thrive Questionnaire Date Thrive assessed: 09/20/24 I am a: Patient What is your living situation today?: I have a steady place to live Within the past 12 months, did the food you bought not last and you didn't have the money to get more?: Never true Within the past 12 months, did you worry whether your food would run out before you got money to buy more?: Never true Do you have trouble paying for medicines?: No Do you have trouble getting transportation to medical appointments?: No Do you have trouble paying your heating and electricity bill?: No Do you have trouble taking care of your child, family member or friend?: No Do you have trouble with day-to-day activities such as bathing, preparing meals, shopping, managing finances, etc.?: No Are you currently unemployed and looking for a job?: No Are you interested in more education?: No Please select the resources that you would like help with: None Currently or been in a relationship where the following occur: No concerns reported THRIVE Score: 0 AUDIT C Alcohol Use Questionnaire (AUDIT-C) 1. How often do you have a drink containing alcohol?: 2-3 times a week 2. How many drinks containing alcohol do you have on a typical day when you are drinking?: 3 or 4 3. How often do you have six or more drinks on one occasion?: Less than monthly Total Score: 5 ABRAHAM-7 AMB Questionnaire ABRAHAM-7 Date ABRAHAM - 7 assessed: 09/27/24 Feeling nervous, anxious, or on edge: 1 = Several days Not being able to stop or control worryin = Several days Worrying too much about different things: 1 = Several days Trouble relaxin = Several days Being so restless that it is hard to sit still: 0 = Not at all Becoming easily annoyed or irritable: 1 = Several days Feeling afraid as if something awful might happen: 0 = Not at all Total ABRAHAM-7 score (0-4 normal; 5-9 mild; 10-14 moderate; 15-21 severe): 5 Source: Developed by Drs. Rajeev Valerio, Michelle Flowers, Galen Solo and colleagues, with an educational aidan from [employer]. Review of Systems Const Denies body aches, Denies chills, Denies excessive sweating, Denies fatigue, Denies fever(s) and Denies headache(s) Eyes Denies blurry vision ENT Denies dysphagia, Denies vertigo, Denies dizziness, Denies headache(s), Denies hearing loss and Denies tinnitus Card Denies chest pain, Denies chest pain with activity, Denies syncope, Denies irregular heart rhythm and Denies dyspnea Resp Denies chest congestion, Denies cough, Denies hemoptysis, Denies dyspnea and Denies wheezing GI Denies abdominal pain, Denies melena, Denies hematochezia, Denies coffee ground emesis, Denies dysphagia, Denies diarrhea, Denies nausea and Denies vomiting Denies difficulty urinating, Denies dysuria, Denies urinary frequency, Denies urinary hesitancy and Denies urinary urgency Musc Denies arthralgias, Denies limited range of motion, Denies muscle cramps and Denies muscle weakness Skin/Breast Denies rash and Denies skin ulcer Neuro Denies Abnormal speech present, Denies confusion, Denies vertigo, Denies dizziness, Denies syncope, Denies headache(s), Denies memory loss and Denies seizure-like activity Psych Denies anxiety, Denies confusion, Denies depression, Denies memory loss, Denies panic attacks and Denies paranoia Endo Denies excessive sweating, Denies fatigue, Denies flushing, Denies polydipsia and Denies polyuria Aller/Immun Denies wheezing Physical exam (Primary Care) Vital Signs: Last Vital Signs Temp 97.3 F 09/27/24 08:08 Pulse 74 09/27/24 08:08 BP 138/80 09/27/24 08:08 Pulse Ox 96 09/27/24 08:08 Oxygen Delivery Method Room Air 09/27/24 08:08 BMI result Body Mass Index 28.0 Tobacco/Smoking Status: Tobacco use Status Tobacco use date assessed 09/27/24 09/27/24 08:15 Patient Tobacco Use Status Never used Tobacco 09/27/24 08:15 e-Cigarette/Vaping Use Never Used 09/27/24 08:15 PHQ-9: PHQ-9 Score PHQ-9: Total score 2 09/27/24 08:55 Depression Screening Interpretation: Positive Depression Screening Follow-up: Existing condition Thrive Assessment: Date of Thrive Assessment Date Thrive assessed 09/20/24 09/27/24 08:15 Currently or been in a relationship where the following occur: No concerns reported Const General: cooperative, comfortable, no acute distress, alert and awake; No confusion Orientation/consciousness: oriented to person, oriented to place, patient oriented x3 and No confusion HENMT Head: Yes normocephalic Ears: external ears normal and TM's normal bilaterally Face and sinus: No sinus tenderness Mouth: Normal oral and palatal mucosa present and tongue normal Teeth and gingiva: dentition normal and gingiva normal Throat: Yes posterior oropharynx normal, Yes tonsils normal and Yes uvula midline Eyes Conjunctivae: conjunctivae normal Sclerae: sclerae normal Pupils: Equal, round and reactive pupils present EOM: EOMs intact bilaterally Direct Ophthalmoscopy: No no photophobia Neck Neck: Yes no lymphadenopathy, No tender and Yes no JVD Thyroid: Thyroid normal Carotids: no bruits Chest Chest palpation & inspection: no tenderness Resp Effort & Inspection: normal respiratory effort, no audible wheezes, not labored and no stridor Auscultation: no crackles, no rales, no rhonchi and no wheezes Cardio Jugular venous distension: no JVD Rate: regular rate, not bradycardic and not tachycardic Rhythm: regular rhythm Bruits: no carotid bruits Peripheral pulses: Peripheral pulses 2+ throughout GI Inspection: Yes normal to inspection, No abdominal wall ecchymosis and No visible herniation Palpation (GI): Soft to palpation, nontender, no guarding, not rigid and No hepatosplenomegaly present Auscultation: normoactive bowel sounds General: Yes no CVA tenderness Back/Spine/Pelvis Back: no CVA tenderness and No back tenderness Cervical Spine: cervical ROM normal Thoracic/Lumbar Spine: thoracic and lumbar spine normal to inspection, straight leg raise negative bilaterally, No thoraco-lumbar ROM limited and No lumbar spinal tenderness Skin Lesions: no lesions Rashes: no rashes Wounds: no wounds Neuro General: oriented to person, oriented to place, patient oriented x3, CN's II-XI intact bilaterally and No confusion Cranial nerves: Yes Equal, round and reactive pupils present and Yes Normal accommodation reflex present Cognition (Neuro): normal cognition Speech: No Abnormal speech present Gait exam (Neuro): Normal gait present Motor exam (neuro): 5/5 motor strength present throughout Extrem Right upper extremity: full ROM; no cyanosis Left upper extremity: full ROM; no cyanosis Right lower extremity: no edema Left lower extremity: no edema Psych Appearance: grossly normal Mental Status: mental status grossly normal Affect: normal affect Attitude: cooperative Thought process: Normal thought process present Coding Level of Care Code Est Pt Prev Care 40-64y(47111) Diagnoses Annual physical exam Z00.00 SI (sacroiliac) joint dysfunction M53.3 Pulmonary emphysema, unspecified emphysema type J43.9 COPD type: emphysema Emphysema type: unspecified Coronary artery disease involving elem coronary artery of elem heart without angina pectoris I25.10 Associated angina: without angina Coronary Disease-Associated Artery/Lesion type: elem artery [place] vs. transplanted heart: elem heart Essential hypertension I10 Hypertension type: essential hypertension Mixed hyperlipidemia E78.2 Hyperlipidemia type: mixed hyperlipidemia Impaired glucose metabolism R73.09 Additional Codes PHQ-9 - 89243 - PHQ-9 Billing: Yes ([id number]) Assessment & Plan Assessment & Plan (1) Annual physical exam: Code(s): Z00.00 - Encounter for general adult medical examination without abnormal findings Category: Medical Plan: As per HPI (2) SI (sacroiliac) joint dysfunction: Code(s): M53.3 - Sacrococcygeal disorders, not elsewhere classified Category: Medical Plan: The patient reports persistent coccyx pain, potentially related to prolonged sitting or musculoskeletal issues. Pain management options, including SI joint injections, may be explored if symptoms persist. (3) COPD (chronic obstructive pulmonary disease): Code(s): J44.9 - Chronic obstructive pulmonary disease, unspecified Category: Medical Qualifiers: COPD type: emphysema Emphysema type: unspecified Qualified Code(s): J43.9 - Emphysema, unspecified Plan: Patient continues to follow [facility]. Does have maintenance inhalers he is having trouble financially pain 4. Does have an albuterol inhaler to which does help. He does report physical activity helps his breathing is well. (4) CAD (coronary artery disease): Code(s): I25.10 - Atherosclerotic heart disease of elem coronary artery without angina pectoris Category: Medical Qualifiers: Associated angina: without angina Coronary Disease-Associated Artery/Lesion type: elem artery [place] vs. transplanted heart: elem heart Qualified Code(s): I25.10 - Atherosclerotic heart disease of elem coronary artery without angina pectoris Plan: Patient continues on aspirin therapy and statin therapy. He is concerned about statin therapy has a long-term option. He has been using atorvastatin 20 mg daily and LDL remains suboptimal at 95. Optimal LDL for this patient would be to be below 70 per cardiology recommendations. (5) HTN (hypertension): Code(s): I10 - Essential (primary) hypertension Category: Medical Qualifiers: Hypertension type: essential hypertension Qualified Code(s): I10 - Essential (primary) hypertension Plan: The patient's hypertension is currently managed with lisinopril 40 mg daily, maintaining blood pressure around 120/80 mmHg with occasional borderline readings. Continued monitoring and adherence to medication are advised, with lifestyle modifications such as reducing alcohol intake to potentially improve control. (6) HLD (hyperlipidemia): Code(s): E78.5 - Hyperlipidemia, unspecified Category: Medical Qualifiers: Hyperlipidemia type: mixed hyperlipidemia Qualified Code(s): E78.2 - Mixed hyperlipidemia Plan: As above Optimal LDL to be below 70, unfortunately patient taking 20 mg atorvastatin due to fears of long-term side effects of statins. (7) Impaired glucose metabolism: Code(s): R73.09 - Other abnormal glucose Category: Medical Plan: Patient's recent fasting blood sugar slightly elevated, A1c is has been stable. He does admit to dietary indiscretion and a bit too much alcohol intake per week. He will try to make some dietary modifications to reduce his sugar Orders: Orders Microalbumin, Random (w Creat) 09/27/24 I10 - Essential (primary) hypertension Lipid Panel 09/27/24 E78.2 - Mixed hyperlipidemia Comprehensive Bricelyn. Panel Fast 09/27/24 I10 - Essential (primary) hypertension Complete Blood Count no Diff 09/27/24 I10 - Essential (primary) hypertension Patient Instructions: Goal: Blood pressure to remain below 140/90, LDL optimally below 70 Barriers: Adherence to physical activity and healthy eating habits
[2024-09-27 08:08] VITALS: BP 138/80; PULSE 74; TEMP 36.3; O2SAT 96; BMI 28.0
== END 2024-09-27 08:55 | disposition home or self-care (01) ==
LOC: HO.HMCH 07:51
PROVIDERS: PCP Physician Assistant; Visit Provider Physician Assistant
DX: Z00.00 Encounter for general adult medical examination without abnormal findings (principal); M53.3 Sacrococcygeal disorders, not elsewhere classified; J43.9 Emphysema, unspecified; I25.10 Atherosclerotic heart disease of native coronary artery without angina pectoris; I10 Essential (primary) hypertension; E78.2 Mixed hyperlipidemia; R73.09 Other abnormal glucose

== ENCOUNTER → 2024-09-27 07:50 | Outpatient (BNVA) | payer MEDICARE, SELFPAY | PROVIDERS: PCP Physician Assistant; Visit Provider Physician Assistant | DX: Z00.00 Encounter for general adult medical examination without abnormal findings (principal); M53.3 Sacrococcygeal disorders, not elsewhere classified; J43.9 Emphysema, unspecified; I10 Essential (primary) hypertension; I25.10 Atherosclerotic heart disease of native coronary artery without angina pectoris; N28.1 Cyst of kidney, acquired; E78.2 Mixed hyperlipidemia; R73.09 Other abnormal glucose | CPT/HCPCS: 96127; 99397 ==

== ENCOUNTER 2024-10-08 10:20 | Outpatient (REF) | payer MEDICARE, SELFPAY ==
--- OUTSIDE RECORDS SUMMARY | 2024-01-08 09:00 | XMS_ITS ---
Author Organization [facility] Address [address] [place] [phone] Care Team Providers Care Dryerman/Woman Name Role Phone David Madden Primary Care Provider Unavailab Trey Ruffin Unavailable [phone] Allergies Allergen (clinical drug ingredient) Drug/Non Drug [...] 01/08/2024 Encounters Encounter Location Date Provider Diagnosis [facility] [address] [place] [phone] 01/08/2024 Trey Gaviria Plan Of Treatment No Information Progress Notes * Raquel PEREZhDOB: 7 (68 yo M)Acc No.[id number]:01/08/2024 Progress Notes Patient: Lalo LIAO Provider: Talon Gaviria DPM :1955 A ge:68 Y S ex:Male Date:01/08/2024 Address:[address] [place], [place] [phone] Pcp:David Madden Subjective: * Chief Complaints: * [...] Sign off status: Pending * Provider: Talon Gavriia DPM Date: 0 01/08/2024 Generated for Devendra Reyes/Laviniaitting on: 0 10/08/2024 11:04 AM EDT
--- NOTE | ~2024-10-08 | XR_ITS ---
EXAMINATION: XR HIP, RIGHT CLINICAL INFORMATION: M25.551 - Pain in right hip COMPARISON: None available. TECHNIQUE: Two views of the right hip. FINDINGS: There is sclerosis along the articular surface of the acetabulum. Asymmetric joint space narrowing. Small marginal osteophyte formation in the femoral head and acetabulum. No acute cortical disruption or malalignment. No lytic or blastic lesions. Vascular clips at the both sides of the inguinal scrotal canal. 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 Probable status post vasectomy. Electronically signed by: Giovanni Feldman MD 10/08/2024 10:38 AM EDT
== END 2024-10-08 10:21 | disposition home or self-care (01) ==
LOC: HO.XRAY 10:20
PROVIDERS: PCP Physician Assistant; Visit Provider Physician Assistant
DX: M25.551 Pain in right hip (principal)
CPT/HCPCS: 73502

== ENCOUNTER → 2024-10-08 10:22 | Outpatient (BNV) | payer MEDICARE, SELFPAY | PROVIDERS: PCP Physician Assistant; Visit Provider Radiology Diagnostic Radiology | DX: M16.11 Unilateral primary osteoarthritis, right hip (principal) | CPT/HCPCS: 73502 ==

== ENCOUNTER 2024-11-29 10:12 | Outpatient (AMB) | payer MEDICARE, SELFPAY ==
--- OUTSIDE RECORDS SUMMARY | 2023-11-19 04:30 | XMS_ITS ---
Author Organization [facility] Address [address] [address] Care Team Providers Care Apron Cleaner Name Role Phone David Briseno Primary Care Provider AHMET Elena [phone] Allergies Allergen (clinical drug ingredient) Drug/Non Drug [...] Active Encounters Encounter Location Date Provider Diagnosis [facility] [address] [address] 11/19/2023 AHMET REVELES Plan Of Treatment No Information Progress Notes * CHRISRaquel LOAIZAhDOB: (68 yo M)Acc No.[id number]:11/19/2023 Consult note Patient: Echo PHAMLeonardJeronimoLalo Provider: Talon Reveles DPM :1955 A ge:67 Y S ex:Male Date:11/19/2023 Phone: Address:[address] [place] [address], [place] [phone] Pcp:ISSAC Bauman Subjective: * Chief Complaints: * [...] Electronic signature of LINDA REVELES D.P.M on 11/29/2024 at 11:09 AM EDT Sign off status: Pending * Provider: Talon Reveles DPM Date: 11/19/2023 Generated for Devendra clark/Lee/Zulma on: 11/29/2024 11:09 AM EDT
--- OUTSIDE RECORDS SUMMARY | 2024-01-08 09:00 | XMS_ITS ---
Author Organization [facility] Address [address] [place] [phone] Care Team Providers Care Can Solderer Name Role Phone David Madden Primary Care Provider Unavailab Trey Ruffin Unavailable [phone] Allergies Allergen (clinical drug ingredient) Drug/Non Drug [...] 01/08/2024 Encounters Encounter Location Date Provider Diagnosis [facility] [address] [place] [phone] 01/08/2024 Trey Gaviria Plan Of Treatment No Information Progress Notes * Raquel PEREZhDOB: 7 (68 yo M)Acc No.[id number]:01/08/2024 Progress Notes Patient: Lalo LIAO Provider: Talon Gaviria DPM :1955 A ge:68 Y S ex:Male Date:01/08/2024 Address:[address] [place], [place] [phone] Pcp:David Madden Subjective: * Chief Complaints: * [...] DPM Date: 0 01/08/2024 Generated for Devendra Reyes/Laviniaitting on: 0 11/29/2024 11:08 AM EDT
--- OUTSIDE RECORDS SUMMARY | 2024-11-29 11:09 | XMS_ITS | Clinical Summary ---
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
--- OUTSIDE RECORDS SUMMARY | 2024-11-29 11:09 | XMS_ITS | Patient Health Record ---
Author Organization [facility] Address [address] [place] [phone] Care Team Providers Care Ms Access Database Developer Name Role Phone David Madden Primary Care Provider Rajeev Driscoll Unavailable [phone] Allergies Allergen (clinical drug ingredient) Drug/Non Drug [...] Status Risk Notes Problem Colon cancer screening (634500381) Colon cancer screening (Z12.11) Active confirmed Problem Pre-procedure evaluation check (859999055) Encounter for other preprocedural examination (Z01.818) Active confirmed Problem Long-term current use of aspirin ([id number]) Aspirin long-term use (Z79.82) Active confirmed Vital Signs Blood pressure diastolic 00 mm Hg 02/10/2024 Height 69.5 in 02/10/2024 Blood pressure systolic 00 mm Hg 02/10/2024 Weight 190 lbs 02/10/2024 BMI 27.65 kg/m2 02/10/2024 Encounters Encounter Location Date Provider Diagnosis [facility] [address] [place] [address] 02/10/2024 Rajeev Lucas Colon cancer screeni ng Z12.11 ; Encounter for other preprocedural examination Z01.818 and Aspirin long-term use Z79.82 [facility] [address] [place] [address] 02/10/2024 Rajeev Lucas Assessments Encounter Date Diagnosis [...] of the procedure. He is leaving for [place] for the winter in a month or [...] of the procedure. He is leaving for [place] for the winter in a month or [...] of the procedure. He is leaving for [place] for the winter in a month or [...] Next Appt Details Provider Name:Rajeev Lucas , 12/06/2024 09:40:00 AM, [facility] , [place], [place], [phone], Insurance Providers Payer Name Payer Address Payer Phone Subscriber Number Group Number Insured Name Patient Relationship to Insured Coverage Start Date Coverage End Date [facility] [address] [place] [phone] [id number] CHAPIN PEREZ Self - patient is the insured Medical (General) History Medical History History ICD Code Denies AR,DM,CVA,renal disease HTN Hyperlipidemia GERD EGD/Colonoscopy 2003 with [...]
== END 2024-11-29 10:18 | disposition home or self-care (01) ==
LOC: HO.HMGAL 10:12
PROVIDERS: PCP Physician Assistant; Visit Provider Registered Nurse Emergency
DX: J30.89 Other allergic rhinitis (principal)
CPT/HCPCS: 95117; 95165

== ENCOUNTER 2024-12-06 08:21 | Day surgery (SDC) | payer MEDICARE, SELFPAY ==
--- OUTSIDE RECORDS SUMMARY | 2024-08-27 10:31 | XMS_ITS ---
Author Organization [facility] Address [address] [place] [phone] Care Team Providers Care Talent Acquisition Specialist Name Role Phone David Madden Primary Care Provider Unavailab Trey Ruffin Unavailable [phone] Allergies Allergen (clinical drug ingredient) Drug/Non Drug [...] 01/08/2024 Encounters Encounter Location Date Provider Diagnosis [facility] [address] [place] [phone] 01/08/2024 Trey Gaviria Plan Of Treatment No Information Progress Notes * Raquel PEREZhDOB: 7 (68 yo M)Acc No.[id number]:01/08/2024 Progress Notes Patient:?Lalo PEREZ Provider:?Trey Gaviria DPM :1955???Age:68 Y???Sex:Male Ricardo e:01/08/2024 Address:[address] [place], [place] [phone] Pcp:David Madden Subjective: * Chief Complaints: * ??? * Medical History:?Hypertensio n, Hyperlipidemia, CAD (Cholesterol). * Surgical History:?cyst remov al , shoulder surgery , nasal surgery . * Family History:?Mother: felecia white.?Father: , coronary artery disease.?Siblings: melanoma.? * Social History:?Tobacco Use:?Tobacco Use/Smoking?Are you a:?nonsmoker ?Additional Findings: Tobacco Non-User?Current non-smoker ???Drugs/Alcohol:?Alcohol Screen?Did you have a drink containing alcohol in the past year??Yes ?Points?0 ?Interpretation?Negative * Allergies:?Fire Ant: anaphyl axis. Objective: * Vitals:?Ht:5 ft 10 in, Wt:19 5, BMI:27.98, Ht-cm: 177.8 cm, Wt-k.45 kg. Assessment: Plan: * Treatment: * Images: * The named appointment provid er may or may not be the originator of this progress note, and it is not deemed complete until electronically signed by the appointment provider. Sign off status: Pending * Provider:?Trey Gaviria DPM Date:?2023 Generated for Devendra clark/Lee/Zulma on:?08/27/2024 10:31 AM EDT
--- OUTSIDE RECORDS SUMMARY | 2024-08-27 10:31 | XMS_ITS ---
Author Organization [facility] Address [address] [place] [address] Care Team Providers Care Cafeteria Cashier Name Role Phone David Madden Primary Care Provider UnavailRajeev Millan Unavailable [phone] Allergies Allergen (clinical drug ingredient) Drug/Non Drug Allergy documented on EMR Reaction Allergy Type Onset Date Status grass,trees,mold,cat s, dogs (uncoded) Unknown Allergy Active REASON FOR VISIT patient presents today for colon screening Medications Medication SIG (Take, Route, Frequency, Duration) Notes Start Date End Date Status Allergy Active Flonase Active Rosuvastatin Calcium 40 MG Oral for 90 Active Pantoprazole Sodium 40 MG 1 tablet 1/2 t o 1 hour before morning meal Orally Once a day Active Lisinopril 40 MG 1 tablet Orally Once a day Active Aspirin Adult Low Dose 81 MG 1 tablet Or ally Once a day for 30 day(s) Active Singulair 10 MG 1 tablet Orally Once a day for 30 day(s) Active Spironolactone 25 MG 1/2 tablet Orally O nce a day Active Social History Tobacco Use: Social History Observation Description Date Details (start date - stop date) Never Smoker NA - NA Tobacco Use/Smoking Question Answer Notes Patient is a nonsmoker Alcohol Screen Question Answer Notes Did you have a drink contain ing alcohol in the past year? Yes Points 5 Interpretation Positive How often did you have 6 or more drinks on one occasion in the past year? Less than monthly (1 point) How many drinks did you have on a typical day when you were drinking in the past year? 3 or 4 drinks (1 point) How often did you have a dri nk containing alcohol in the past year? 2 to 3 times a week (3 points) Section Notes: Nonsmoker; social drinker-no t daily, but 3-4 days a week Problems Problem Type SNOMED Code ICD Code Onset Dates Problem Status W/U Status Risk Notes Problem Colon cancer screening (100831224) Colon cancer screening (Z12.11) Active confirmed Problem Long-term current use of aspirin (7944609923768 03) Aspirin long-term use (Z79.82) Active confirmed Problem Pre-procedure evaluation check (832801279) Encounter for other preprocedural examination (Z01.818) Active confirmed Vital Signs Blood pressure systolic 00 mm Hg 02/10/20 24 Blood pressure diastolic 00 mm Hg 024 Height 69.5 in 02/10/2024 Weight 190 lbs 02/10/2024 BMI 27.65 kg/m2 02/10/2024 Encounters Encounter Location Date Provider Diagnosis [facility] [address] [place] [address] 02/10/2024 Rajeev Lucas Colon cancer screeni ng Z12.11 ; Encounter for other preprocedural examination Z01.818 and Aspirin long-term use Z79.82 Assessments Encounter Date Diagnosis (ICD Code) Assessment Notes Treatment Notes Treatment Clinical Notes Section Notes 02/10/2024 Colon cancer screening (ICD-10 - Z12.11) Stop aspirin for 1 week before the colonoscopy Overall, Jeronimo appears quite well. I did recommend a followup colonoscopy for screening purposes given his last exam being just over 10 years ago. We did review the rationale for that in regard to colon cancer prevention. Full consent was obtained for this, including risks of bleeding and perforation. The procedure will be done monitored anesthesia care. He was advised to stop aspirin for one week before the procedure. He was advised not to use his spironolactone on the day before nor on the day of the procedure. He is leaving for [place] for the winter in a month or so, and therefore the procedure will be scheduled for him when he returns in the Spring. I don't think it needs to be done any sooner given his negative history of any worrisome GI problems and his excellent clinical appearance. I did advise him to continue his daily pantoprazole as I does seem to be working well for his previous symptomatic reflux. Given the negative endoscopy report in the past and no new or worrisome upper GI complaints, I don't think he needs an upper endoscopy at this time. Jeronimo was comfortable with this plan. Thank you again for allowing me to participate in Jeronimo's care. I shall continue to keep you advised of his progress. 02/10/2024 Encounter for other preprocedural examination (ICD-10 - Z01.818) Overall, Jeronimo appears quite well. I did recommend a followup colonoscopy for screening purposes given his last exam being just over 10 years ago. We did review the rationale for that in regard to colon cancer prevention. Full consent was obtained for this, including risks of bleeding and perforation. The procedure will be done monitored anesthesia care. He was advised to stop aspirin for one week before the procedure. He was advised not to use his spironolactone on the day before nor on the day of the procedure. He is leaving for [place] for the winter in a month or so, and therefore the procedure will be scheduled for him when he returns in the Spring. I don't think it needs to be done any sooner given his negative history of any worrisome GI problems and his excellent clinical appearance. I did advise him to continue his daily pantoprazole as I does seem to be working well for his previous symptomatic reflux. Given the negative endoscopy report in the past and no new or worrisome upper GI complaints, I don't think he needs an upper endoscopy at this time. Jeronimo was comfortable with this plan. Thank you again for allowing me to participate in Jeronimo's care. I shall continue to keep you advised of his progress. 02/10/2024 Aspirin long-term use (ICD-10 - Z79.82) Overall, Jeronimo appears quite well. I did recommend a followup colonoscopy for screening purposes given his last exam being just over 10 years ago. We did review the rationale for that in regard to colon cancer prevention. Full consent was obtained for this, including risks of bleeding and perforation. The procedure will be done monitored anesthesia care. He was advised to stop aspirin for one week before the procedure. He was advised not to use his spironolactone on the day before nor on the day of the procedure. He is leaving for [place] for the winter in a month or so, and therefore the procedure will be scheduled for him when he returns in the Spring. I don't think it needs to be done any sooner given his negative history of any worrisome GI problems and his excellent clinical appearance. I did advise him to continue his daily pantoprazole as I does seem to be working well for his previous symptomatic reflux. Given the negative endoscopy report in the past and no new or worrisome upper GI complaints, I don't think he needs an upper endoscopy at this time. Jeronimo was comfortable with this plan. Thank you again for allowing me to participate in Jeronimo's care. I shall continue to keep you advised of his progress. Plan Of Treatment Treatment Notes Assessment Notes Colon cancer screening Stop aspirin for 1 week before the colonoscopy Future Test Test Name Order Date COLONOSCOPY 02/10/2024 Next Appt Details Follow Up: prn, Reason: Provider Name:Rajeev Lucas , 09/22/2024 07:30:00 AM, [address] [place] [address], [id number], Progress Notes * ART PEREZHDOB: (68 yo M)Acc No.[id number]:02/10/2024 Progress Notes Patient:?CHAPIN PEREZ Provider:?Rajeve Lucas MD :1955???Age:68 Y???Sex:Male Ricardo e:02/10/2024 Address:[address] [place] [address] Pcp:David Madden Subjective: * Chief Complaints: * ???Patient presents today fo r colon screening * HPI: ???incontinence:? I saw Jeronimo in the office today for evaluation of colorectal cancer screening. ?I last saw Jeronimo in December 2013, at which time he underwent a negative screening colonoscopy other than a hyperplastic polyp. He presently feels very well. He remains on daily pantoprazole with good relief of previous reflux symptoms. He has been on pantoprazole for many years and a previous upper endoscopy in [address] Jerez did not reveal any esophagitis or reported Bah's esophagus. He enjoys a good appetite, without any dysphagia, early satiety, nausea, or vomiting. His bowel movements have been regular and without any signs of bleeding. He denies abdominal pain, jaundice, nor unintentional weight loss. He denies any known family history of colon cancer. * ROS:?General/Constitutional:?Change in appetite?denies.?Chills?denies.?Fatigue?denies.?Ophthalmologic:?Patient denies? Negative..?ENT:?Patient denies?Negative..?Respiratory:?Patient denies?No coughing/hemoptysis..?Cardiovascular:?Patient denies? No chest pain/orthopnea..?Gastrointestinal:?Comments?See HPI for details.?Genitourinary:?Patient denies? No dysuria/hematuria..?Musculoskeletal:?Patient denies? No specific arthralgias/myalgias..?Skin:?Patient denies?No rash/pruritus..?Neurologic:?Patient denies? No headaches/seizures..?Psychiatric:?Patient denies?Negative..? * Medical History:? * Surgical History:?nasal surg mau for polyps shoulder surgery--left and right * Hospitalization/Major Diagno stic Procedure:?No Hospitalization History. * Family History:?Father: dece ased.?Mother: .? No colorectal cancer. * Social History:?Tobacco Use:?Tobacco Use/Smoking?Patient is a?nonsmoker.?Drugs/Alcohol:?Alcohol Screen?Did you have a drink containing alcohol in the past year??Yes,?How often did you have 6 or more drinks on one occasion in the past year??Less than monthly (1 point),?How many drinks did you have on a typical day when you were drinking in the past year??3 or 4 drinks (1 point),?How often did you have a drink containing alcohol in the past year??2 to 3 times a week (3 points),?Points?5,?Interpretation?Positive.?Miscellaneous:?Marital status: . 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 ???Nonsmoker; social drinker-not daily, but 3-4 days a week. * Medications:?TakingSpironola ctone 25 MG Tablet 1/2 tablet Orally Once a daySingulair 10 MG Tablet 1 tablet Orally Once a dayAspirin Adult Low Dose 81 MG Tablet Delayed Release 1 tablet Orally Once a dayLisinopril 40 MG Tablet 1 tablet Orally Once a dayPantoprazole Sodium 40 MG Tablet Delayed Release 1 tablet 1/2 to 1 hour before morning meal Orally Once a dayRosuvastatin Calcium 40 MG Tablet Oral Flonase Allergy shots Taking Spironolactone 25 MG Tablet 1/2 tablet Orally Once a dayTaking Singulair 10 MG Tablet 1 tablet Orally Once a dayTaking Aspirin Adult Low Dose 81 MG Tablet Delayed Release 1 tablet Orally Once a dayTaking Lisinopril 40 MG Tablet 1 tablet Orally Once a dayTaking Pantoprazole Sodium 40 MG Tablet Delayed Release 1 tablet 1/2 to 1 hour before morning meal Orally Once a dayTaking Rosuvastatin Calcium 40 MG Tablet Oral Taking Flonase Taking Allergy shots DiscontinuedPravastatin Sodium MoviPrep 100 GM Solution Reconstituted as directed Orally as directedMedication List reviewed and reconciled with the patientDiscontinued Pravastatin Sodium Discontinued MoviPrep 100 GM Solution Reconstituted as directed Orally as directedMedication List reviewed and reconciled with the patient * Allergies:?grass,trees,mold, cats,dogsyes[Allergies Verified] Objective: * Vitals:?Wt: 190 lbs, Ht: 69. 5 in, BMI:27.65 Index, BP: 00/00 mm Hg. * Examination: ???General Examination: ?GENERAL APPEARANCE:?pleasant, well nourished, well developed, in no acute distress.?EYES:?sclera non-icteric.?ORAL CAVITY:?mucosa moist.?NECK/THYROID:?no cervical lymphadenopathy, neck supple.?SKIN:?nonjaundiced, no spider angiomata..?HEART:?S1, S2 normal.?LUNGS:?clear to auscultation bilaterally.?ABDOMEN:?normal bowel sounds, no guarding or rigidity, no hepatosplenomegaly, no masses palpable, soft, nontender, nondistended..?EXTREMITIES:?no edema.?NEUROLOGIC:?alert and oriented.? Assessment: * Assessment: 1.?Encounter for other prepr ocedural examination - Z01.818 (Primary)?2.?Colon cancer screening - Z12.11?3.?Aspirin long-term use - Z79.82? Overall, Jeronimo appears quite w ell. I did recommend a followup colonoscopy for screening purposes given his last exam being just over 10 years ago. We did review the rationale for that in regard to colon cancer prevention. Full consent was obtained for this, including risks of bleeding and perforation. The procedure will be done monitored anesthesia care. He was advised to stop aspirin for one week before the procedure. He was advised not to use his spironolactone on the day before nor on the day of the procedure. He is leaving for [place] for the winter in a month or so, and therefore the procedure will be scheduled for him when he returns in the Spring. I don't think it needs to be done any sooner given his negative history of any worrisome GI problems and his excellent clinical appearance. I did advise him to continue his daily pantoprazole as I does seem to be working well for his previous symptomatic reflux. Given the negative endoscopy report in the past and no new or worrisome upper GI complaints, I don't think he needs an upper endoscopy at this time. Jeronimo was comfortable with this plan. Thank you again for allowing me to participate in Jeronimo's care. I shall continue to keep you advised of his progress. Plan: * Treatment: Notes: Stop aspirin for 1 week before the colonoscopy?? * Procedure Codes:?3017F COLOR ECTAL CA SCREEN DOC [id number] TOBACCO NON-[id number] BP SCR NOT PRFRM REC REASON NOS * Preventive Medicine:? ??Counseling:?Care goal follow-up plan:?Above Normal BMI Follow-up?Giving encouragement to exercise,?BMI management provided?Yes.? ??Screenings:?Fall Risk Screening?Fall Risk Assessment:?No falls in the past year,?Screening:?No falls in the past year,?Assessment:?Not performed, no reason specified,?Plan of Care:?Not documented, no reason specified.? * Follow Up:?prn * * Sign off status: Completed true * Provider:?Rajeev Lucas MD Date:? 024 Generated for Elsyi amber/Lee/eTransmitting on:?08/27/2024 10:31 AM EDT History and Physical Notes * HPI (History of Present Illness) Category Sub-Category Detail Notes Category Not es incontinence I saw Jeronimo in the office today for evaluation of colorectal cancer screening. I last saw Jeronimo in December 2013, at which time he underwent a negative screening colonoscopy other than a hyperplastic polyp. He presently feels very well. He remains on daily pantoprazole with good relief of previous reflux symptoms. He has been on pantoprazole for many years and a previous upper endoscopy in [address] Jerez did not reveal any esophagitis or reported Bah's esophagus. He enjoys a good appetite, without any dysphagia, early satiety, nausea, or vomiting. His bowel movements have been regular and without any signs of bleeding. He denies abdominal pain, jaundice, nor unintentional weight loss. He denies any known family history of colon cancer. Examination Category Sub-Category Detail Notes Category Not es General Examination GENERAL APPEARANCE: pleasant , well nourished, well developed, in no acute distress EYES: sclera non-icteric NECK/THYROID: no cervical lymphade nopathy, neck supple HEART: S1, S2 normal LUNGS: clear to auscultatio n bilaterally ABDOMEN: normal bowel sounds, no guarding or rigidity, no hepatosplenomegaly, no masses palpable, soft, nontender, nondistended. NEUROLOGIC: alert and oriented SKIN: nonjaundiced, no spi vicente angiomata. EXTREMITIES: no edema ORAL CAVITY: mucosa moist
--- OUTSIDE RECORDS SUMMARY | 2024-08-27 10:31 | XMS_ITS | Patient Health Record ---
Author Organization [facility] Address [address] [place] [address] Care Team Providers Care Other Wood Processing Machine Operator Name Role Phone David Madden Primary Care Provider Rajeev Driscoll Unavailable [phone] Allergies Allergen (clinical drug ingredient) Drug/Non Drug Allergy documented on EMR Reaction Allergy Type Onset Date Status grass,trees,mold,cat s, dogs (uncoded) Unknown Allergy Active Reason For Referral No Information Medications Medication SIG (Take, Route, Frequency, Duration) [...] tablet Orally O nce a day Active Problems Problem Type SNOMED Code ICD Code Onset Dates Problem Status W/U Status Risk Notes Problem Colon cancer screening (627538680) Colon cancer screening (Z12.11) Active confirmed Problem Pre-procedure evaluation check (483178607) Encounter for other preprocedural examination (Z01.818) Active confirmed Problem Long-term current use of aspirin (4409251507081 03) Aspirin long-term use (Z79.82) Active confirmed Vital Signs Blood pressure diastolic 00 mm Hg 02/10/2024 Height 69.5 in 02/10/2024 Blood pressure systolic 00 mm Hg 02/10/2024 Weight 190 lbs 02/10/2024 BMI 27.65 kg/m2 02/10/2024 Encounters Encounter Location Date Provider Diagnosis [facility] [address] [place] [address] 02/10/2024 Rajeev Lucas Colon cancer screeni ng Z12.11 ; Encounter for other preprocedural examination Z01.818 and Aspirin long-term use Z79.82 [facility] [address] [place] [address] 02/10/2024 Rajeev Lucas Assessments Encounter Date Diagnosis (ICD Code) Assessment [...] of the procedure. He is leaving for [place] for the winter in a month or [...] of the procedure. He is leaving for [place] for the winter in a month or [...] of the procedure. He is leaving for [place] for the winter in a month or [...] advised of his progress. Plan Of Treatment Future Test Test Name Order Date COLONOSCOPY 07/14/2013 COLONOSCOPY 02/10/2024 Next Appt Details Provider Name:Rajeev Lucas , 09/22/2024 07:30:00 AM, [facility] , [place], [place], [id number], Insurance Providers Payer Name Payer Address Payer Phone Subscriber Number Group Number Insured Name Patient Relationship to Insured Coverage Start Date Coverage End Date 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 Normal CBC and LFT's in 05/2013 Colonoscopy with me in 12/2013 with a hyp erplastic polyp Reactive airways disease-he sees Dr. Refugio combs Surgical History Surgery Date(Month/Year) nasal surgery for polyps shoulder surgery--left and right
--- OUTSIDE RECORDS SUMMARY | 2024-08-27 10:31 | XMS_ITS ---
Author Organization [facility] Address [address] [address] Care Team Providers Care Pipe Washer Name Role Phone David Briseno Primary Care Provider AHMET Elena [phone] REASON FOR VISIT Opened in error Encounters Encounter Location Date Provider Diagnosis [facility] [address] [address] 10/27/2023 AHMET HART Plan Of Treatment No Information Progress Notes * Raquel PEREZhDOB: (67 yo M)Acc No.[id number]:10/27/2023 Patient:?Lalo PEREZ :1955???Age:67 Y???Sex:Male Phone: Address:[address] [place] [address] * true * Date:? Generated for Devendra clark/Lee/eTransmitting on:?08/27/2024 10:31 AM EDT
--- OUTSIDE RECORDS SUMMARY | 2024-08-27 10:32 | XMS_ITS ---
Author Organization [facility] Address [address] [place] [address] Care Team Providers Care Cte Teacher Name Role Phone David Madden Primary Care Provider Unavailab Rajeev Brock [phone] REASON FOR VISIT medication Encounters Encounter Location Date Provider Diagnosis [facility] [address] [place] [address] 02/10/2024 Rajeev Lucas Plan Of Treatment Next Appt Details Provider Name:Raejev Lucas , 09/22/2024 07:30:00 AM, [address] [place] [address] , [place], [place], [phone], Progress Notes * CHRISART LOAIZAHDOB: (68 yo M)Acc No.[id number]:02/10/2024 Patient:?CHRISBRUNACHAPIN :1955???Age:68 Y???Sex:Male Address:[address] [place] [address] * true * Date:? Generated for Printi ng/Lee/eTransmitting on:?08/27/2024 10:32 AM EDT
--- OUTSIDE RECORDS SUMMARY | 2024-08-27 10:32 | XMS_ITS | Patient Health Record ---
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) anaphylaxis Allergy Ac tive Reason For Referral No Information Medications Medication [...] tablet Orall y Once a day Active Fluticasone-Salmeterol 115-21 MCG/ACT 2 puffs Inhalation Twice a day Active Lisinopril 40 MG 1 tablet Orally Once a day Active Rosuvastatin Calcium 20 MG 1 tablet Oral ly Once a day 30MG Active Spironolactone 25 MG 1 tablet Orally Active Encounters Encounter Location Date Provider Diagnosis [facility] [address] [address] 10/27/2023 AHMET HART [facility] [address] 10/27/2023 AHMET HART Plan Of Treatment No Information Insurance Providers Payer Name Payer Address Payer Phone Subscriber Number Group Number Insured Name Patient Relationship to Insured Coverage Start Date Coverage End Date [employer] 1 [facility] [address] [place] [address] [id number] Lalo Hayes Self - patient is the insured Medical (General) History Medical History History ICD Code asthma hypertension coronary artery disease gastroesophageal reflux disease (GERD) anxiety bladder cystitis mild COPD complex renal cyst hyperlipidemia COVID vaccinated Surgical History Surgery Date(Month/Year) removal of cyst cystostomy shoulder surgery nasal surgery
--- OUTSIDE RECORDS SUMMARY | 2024-08-27 10:32 | XMS_ITS ---
Author Organization [facility] Address [address] [address] Care Team Providers Care Communications Engineer Name Role Phone David Briseno Primary Care Provider AHMET Elena [phone] REASON FOR VISIT Medical Records Encounters Encounter Location Date Provider Diagnosis [facility] [address] [address] 10/27/2023 AHMET HART Plan Of Treatment No Information Progress Notes * Raquel PEREZhDOB: (67 yo M)Acc No.[id number]:10/27/2023 Patient:?Lalo PEREZ :1955???Age:67 Y???Sex:Male Phone: Address:[address] [place] [address] * true * Date:? Generated for Devendra clark/Lee/eTransmitting on:?08/27/2024 10:31 AM EDT
--- OUTSIDE RECORDS SUMMARY | 2024-08-27 10:32 | XMS_ITS | Patient Health Record ---
[facility] Ubaldo pina Mattoon Address [address] [place] [address] Care Team Providers Care Tube Worker Name Role Phone David Madden Primary Care Provider Unavailab Trey Ruffin Unavailable [phone] Allergies Allergen (clinical drug ingredient) Drug/Non Drug Allergy documented on EMR Reaction Allergy Type Onset Date Status red imported fire ant allergenic extract Fire Ant anaphylaxis Drug Allergy Active Reason For Referral No Information Social History Tobacco Use: Social History Observation Description Date Details (start date - stop date) Never Smoker NA - NA Tobacco Use/Smoking Question Answer Notes Are you a: nonsmoker Additional Findings: Tobacco Non-User Current no n-smoker Alcohol Screen Question Answer Notes Did you have a drink containing alcohol in the p ast year? Yes Points 0 Interpretation Negative Encounters Encounter Location Date Provider Diagnosis [address] [address] 11/10/2023 Trey Gaviria Plan Of Treatment No Information Insurance Providers Payer Name Payer Address Payer Phone Subscriber Number Group Number Insured Name Patient Relationship to Insured Coverage Start Date Coverage End Date [employer] [place] [employer] Advantage [address] [place] [address] [id number] Lalo Hayes Self - patient is the insured Medical (General) History Medical History History ICD Code Hypertension Hyperlipidemia CAD (Cholesterol) Surgical History Surgery Date(Month/Year) cyst removal shoulder surgery nasal surgery
--- OUTSIDE RECORDS SUMMARY | 2024-08-27 10:32 | XMS_ITS ---
Author Organization [facility] Address [address] [address] Care Team Providers Care Clinical Provider Trainer Name Role Phone David Briseno Primary Care Provider RO Elena [phone] Allergies Allergen (clinical drug ingredient) Drug/Non Drug [...] Active Encounters Encounter Location Date Provider Diagnosis [facility] [address] [address] 11/19/2023 RO ERVELES Plan Of Treatment No Information Progress Notes * Raquel PEREZhDOB: 7 (68 yo M)Acc No.[id number]:11/19/2023 Consult note Patient:?Lalo PEREZ Provider:?Ro Reveles DPM :1955???Age:67 Y???Sex:Male Ricardo e:11/19/2023 Phone: Address:[address] [place], [place] [address]ANA ROSA [phone] Pcp:ISSAC Bauman Subjective: * Chief Complaints: * ???1. Rt foot great toe infe ction, already placed on antibiotics with no relief. * Medical History:?Asthma, Hyp ertension, Coronary artery disease, gastroesophageal reflux disease (GERD), Anxiety, Bladder cystitis, mild COPD, Complex renal cyst, Hyperlipidemia, COVID vaccinated. * Surgical History:?removal of cyst , cystostomy , shoulder surgery , nasal surgery . * Family History:?Father: dece ased, coronary artery disease.?Siblings: brother- melanoma.? * Social History:?Tobacco: no Alcohol: yes, 2-3 glasses wine per day. * Medications:?Taking Spironol actone 25 MG Tablet 1 tablet Orally , [...] tablet Orally Once a day , Taking Fluticasone- Salmeterol 115-21 MCG/ACT Aerosol 2 puffs Inhalation Twice a day , Taking Citalopram Hydrobromide 10 MG Tablet 1 tablet Orally Once a day , Taking Aspirin 81 MG Tablet Delayed Release 1 tablet Orally Once a day , Taking Albuterol Sulfate HFA 108 (90 Base) MCG/ACT Aerosol Solution 1 puff as needed Inhalation every 4 hrs * Allergies:?Fire Ants: Anaphy laxis. Objective: * Vitals:? Therapeutic Interventions: Assessment: Plan: * Treatment: * Billing Information: * Visit Code:? * Procedure Codes:? * Electronic signature of Marga TAVAREZPDany on 08/27/2024 at 10:31 AM EDT Sign off status: Pending * Provider:?Ro Reveles DPM Date:? 11/19/2023 Generated for Devendra clark/Lee/Zulma on:?08/27/2024 10:31 AM EDT
--- OUTSIDE RECORDS SUMMARY | 2024-08-27 10:32 | XMS_ITS ---
Author Organization [facility] Address [address] [place] [address] Care Team Providers Care Wired Music Operator Name Role Phone David Madden Primary Care Provider Unavailab Trey Ruffin Unavailable [phone] REASON FOR VISIT cx 01/07 appt Encounters Encounter Location Date Provider Diagnosis [address] [address] 11/10/2023 Trey Gaviria Plan Of Treatment No Information Progress Notes * Raquel PEREZhDOB: (67 yo M)Acc No.[id number]:11/10/2023 Patient:?Lalo Perez :1955???Age:67 Y???Sex:Male Address:[address] [place] [address], [address] * true * Date:? Generated for Printi amber/Lee/eTransmitting on:?08/27/2024 10:32 AM EDT
--- OUTSIDE RECORDS SUMMARY | 2024-08-27 10:32 | XMS_ITS ---
Author Organization [facility] Address [address] [facility] [address] [place] [address] Care Team Providers Care Geek Squad Manager Name Role Phone David Madden Primary Care Provider Unavailab Rajeev Brock [phone] REASON FOR VISIT Patient presents today for a colon screening Encounters Encounter Location Date Provider Diagnosis [facility] [address] [facility] [address] [place] [address] 02/12/2024 Rajeev Lucas Plan Of Treatment Next Appt Details Provider Name:Rajeev Lucas , 09/22/2024 07:30:00 AM, [address] [place] [address] , [place], [place], [phone], Progress Notes * ART PEREZHDOB: (68 yo M)Acc No.[id number]:02/12/2024 Progress Notes Patient:?CHAPIN PEREZ Provider:?Rajeev Lucas MD :1955???Age:68 Y???Sex:Male Ricardo e:02/12/2024 Address:[address] [place], [place] [phone] Pcp:David Madden Subjective: * Chief Complaints: * ???1. Patient presents today for a colon screening. * Medical History:? Objective: * Vitals:? Assessment: Plan: * Treatment: * * The named appointment provid er may or may not be the originator of this progress note, and it is not deemed complete until electronically signed by the appointment provider. Sign off status: Pending * Provider:?Rajeev Lucas MD Date:? 024 Generated for Devendra clark/Lee/Zulma on:?08/27/2024 10:32 AM EDT
--- OUTSIDE RECORDS SUMMARY | 2024-08-27 10:33 | XMS_ITS | Clinical Summary ---
Author Organization [facility] Address [address] [place] [address] Care Team Providers Care Organizational Effectiveness Director Name Role Phone Unavailable Primary Care Provider Unavailabl e Social History Tobacco Use Types Packs/Day Years Used Date Smoking Tobacco: Never Assessed Sex and Gender Information Value Date Recorded Sex Assigned at Not on file Legal Sex Male 3:13 PM EDT Gender Identity Not on file Sexual Orientation Not on file Plan of Treatment Health Maintenance Due Date Last Done Comments Hepatitis C Screening 1955 DTaP/Tdap/Td (1 - Tdap) 1974 Pneumococcal 50+ years (1 of 1 - PCV) 2006 Zoster (Shingrix) (1 of 2) 2006 COVID-19 Vaccine ( - 2023-2 5 season) 2023 Influenza (#1) 2023 RSV (1 - 1-dose 75+ series) 12/12/2031 Abdominal Aorta Imaging Discontinued HPV Vaccine Aged Out No longer eligi ble based on patient's age to complete this topic Hep A Aged Out No longer eligi ble based on patient's age to complete this topic Hep B Aged Out No longer eligi ble based on patient's age to complete this topic Hib Aged Out No longer eligi ble based on patient's age to complete this topic Meningococcal ACWY Aged Out No longer eligible based on patient's age to complete this topic Zoster (Zostavax) Discontinued
[2024-12-02 14:55] VITALS: BMI 27.7
--- NOTE | 2024-12-03 09:04 | HO.ANESPROP2 ---
Documented by User: Yvette Merino NP 12/03/24 09:13 HPI - Anesthesia Eval Consult details Narrative: 68 yr old male for colonoscopy Asthma/COPD/Allergic asthma: Follows with [facility] pulmonary, on ICS/LABA, prn albuterol, may start Dupixent. CAD: follows with [facility] cardiology with last visit in 2023, stress testing was normal in 2021, echo updated in 2023 was unremarkable [facility] Active Problems Active Problems: All Active Problems Osteoarthritis of right hip (Acute) Right hip pain (Acute) Impaired glucose metabolism (Acute) SI (sacroiliac) joint dysfunction (Acute) Allergies (Acute) Right flank pain (Acute) Pain of right great toe (Acute) Coccyalgia (Acute) Infected nail bed of toe (Acute) Cellulitis (Acute) Colon cancer screening (Acute) Myalgia (Acute) BPH loc w urin obs/LUTS (Acute) Abnormal urine cytology (Acute) Microscopic hematuria (Acute) Renal mass of unknown nature (Acute) Complex renal cyst (Acute) Left kidney mass (Acute) Lesion of liver (Acute) COVID-19 (Acute) Sinusitis (Acute) Elevated fasting blood sugar (Acute) Right shoulder pain (Acute) RUQ abdominal pain (Acute) GERD (gastroesophageal reflux disease) (Acute) Cervical spine pain (Acute) COPD (chronic obstructive pulmonary disease) (Acute) ABRAHAM (generalized anxiety disorder) (Acute) Immune to varicella (Acute) Sinus infection (Acute) Tear of medial meniscus of right knee (Acute) Internal derangement of knee (Acute) Right knee pain (Acute) Pharyngitis (Acute) Tinnitus (Acute) Annual physical exam (Acute) Fatigue (Acute) Asthma (Acute) Anxiety (Acute) Shortness of breath (Acute) Nasal polyps (Acute) HTN (hypertension) (Acute) HLD (hyperlipidemia) (Acute) CAD (coronary artery disease) (Acute) Past Medical History Medical History Anxiety Asthma COPD (chronic obstructive pulmonary disease) GERD (gastroesophageal reflux disease) BPH (benign prostatic hyperplasia) Arthritis Nasal polyps HTN (hypertension) HLD (hyperlipidemia) CAD (coronary artery disease) Family History Family History Father CAD (coronary artery disease) Mother Healthy adult Brother Melanoma Surgical History Surgical History History of esophagogastroduodenoscopy (EGD) H/O colonoscopy Hx of removal of cyst History of cystostomy History of shoulder surgery History of nasal surgery Social History Social History Housing: House Alcohol intake: current Alcohol intake frequency: a few times a week Alcohol type: wine Patient Tobacco Use Status: Never used Tobacco e-Cigarette/Vaping Use: Never Used Second Hand Smoke Exposure: No Use of substances other than those prescribed or required for medical reasons: No Have you been hit, kicked, punched, or otherwise hurt by someone within the past year? If so, by whom?: No Are you DNR?: No Advance Directives: No Advance Directives Information Provided: Yes Poor oral hygiene: No service: No Current occupational status: retired Current occupation: Retired Cognitive needs: No Hearing needs: No Vision needs: Yes (glasses) Meds Allergies Allergy/AdvReac Type Severity Reaction Status Date / Time cat dander (cats) Allergy Sneezing Verified 12/06/24 08:44 mite-Dermatophagoides Allergy Sneezing Verified 12/06/24 08:44 farinae, michael (dust mite - [place]) fire ants Allergy Severe Anaphylaxis Uncoded 12/06/24 08:44 Home Medications ?Medication ?Instructions ?Recorded ?Confirmed ?Last Taken ?Type aspirin 81 mg tablet,delayed 81 mg PO DAILY 01/27/20 12/06/24 11/29/24 History release (Adult Low Dose Aspirin) Exam Height,Weight and Vital Signs: Height 5 ft 9.5 in Weight 86.183 kg Pertinent Lab Results Pertinent Lab Results: Laboratory Tests 09/21/24 08:42 WBC 5.9 RBC 4.92 Hgb 15.3 Hct 43.7 Plt Count 298 Sodium 141 Potassium 3.9 BUN 11 Creatinine 0.96 Narrative Narrative: Procedure Date: 11/26/2023 Procedure Type: Transthoracic Echocardiogram Location: OP Height: 177.8 cm Weight: 86.64 kg BSA: 2.05 m2 Heart Rate: 60 bpm BP: 122 / 80 mmHg Griddle Cook: YAMILETH Referring MD: Shine Marshall MD Symptoms: R06.02 - Shortness of breath Study Quality: Adequate ECG Rhythm: Sinus Conclusions: - The left ventricular systolic function is normal. The calculated ejection fraction is 62% by biplane method. - No obvious valvular pathology seen on this study. - Moderate plaque is seen in the ascending aorta. Documented by User: Troy Mcgrath MD 12/06/24 09:25 [facility] Past Medical History Medical History Anxiety Asthma COPD (chronic obstructive pulmonary disease) GERD (gastroesophageal reflux disease) BPH (benign prostatic hyperplasia) Arthritis Nasal polyps HTN (hypertension) HLD (hyperlipidemia) CAD (coronary artery disease) Family History Family History Father CAD (coronary artery disease) Mother Healthy adult Brother Melanoma Surgical History Surgical History History of esophagogastroduodenoscopy (EGD) H/O colonoscopy Hx of removal of cyst History of cystostomy History of shoulder surgery History of nasal surgery Social History Social History Housing: House Alcohol intake: current Alcohol intake frequency: a few times a week Alcohol type: wine Patient Tobacco Use Status: Never used Tobacco e-Cigarette/Vaping Use: Never Used Second Hand Smoke Exposure: No Use of substances other than those prescribed or required for medical reasons: No Have you been hit, kicked, punched, or otherwise hurt by someone within the past year? If so, by whom?: No Are you DNR?: No Advance Directives: No Advance Directives Information Provided: Yes Poor oral hygiene: No service: No Current occupational status: retired Current occupation: Retired Cognitive needs: No Hearing needs: No Vision needs: Yes (glasses) Meds Allergies Allergy/AdvReac Type Severity Reaction Status Date / Time cat dander (cats) Allergy Sneezing Verified 12/06/24 08:44 mite-Dermatophagoides Allergy Sneezing Verified 12/06/24 08:44 michael balderas (dust mite - [place]) fire ants Allergy Severe Anaphylaxis Uncoded 12/06/24 08:44 Home Medications ?Medication ?Instructions ?Recorded ?Confirmed ?Last Taken ?Type aspirin 81 mg tablet,delayed 81 mg PO DAILY 01/27/20 12/06/24 11/29/24 History release (Adult Low Dose Aspirin) Exam Airway Mallampati Class: III TM Dist: >3cm Neck ROM: Full Loose/Missing/Broken Teeth: No Heart: RRR Lungs: CTA Assessment and Plan Assessment Anesthesia Assessment: Anesthesia Plan Discussed Final Anesthetic Review ASA Class: III Final Preanesthetic Review: No Changes in Pt Med Stat, Meds/Allgs Chart Reviewed, Consent Obtained/Reviewed and Anes Risks/Benef Reviewed Patient Risk: Low Procedure Risk: Low Anesthetic Plan Anesthetic Plan: MAC: Disposition: Standard PACU
[2024-12-06 08:36] VITALS: BMI 27.0
[2024-12-06 08:49] VITALS: BP 156/85; PULSE 88; RESP 17; TEMP 37.1; O2SAT 96
[2024-12-06] MEDS: Lactated Ringers 1,000 ML 100 ML IVCONT (09:02)
[2024-12-06 10:55] VITALS: BP 116/65; PULSE 78; RESP 18; TEMP 36.6; O2SAT 97
--- NOTE | 2024-12-06 10:56 | PM.OP ---
Brief Operative Note Date of Service: 12/06/24 Pre-op diagnosis: Screening Post-op diagnosis: other (Polyps) Procedure: Colonoscopy to the cecum and TI with bx/removal of AC polyp, cold snare polypectomy of cecal polyp, and hot snare polypectomies x 3 of cecal and AC polyps Surgeon: Rajeev Lucas MD Anesthesia: MAC Was an Certified Professional Coder used for this Procedure?: No Estimated blood loss (mL): 2.0 Pathology: other (A. Cecal polyps B. Ascending colon polyps) Condition: stable Disposition: PACU
[2024-12-06 11:10] VITALS: BP 121/72; PULSE 76; RESP 20; TEMP 36.5; O2SAT 95
--- NOTE | 2024-12-06 21:13 | OP_ITS ---
DATE OF SERVICE: 12/06/2024 SURGEON: Rajeev Lucas MD INDICATIONS: The patient presents for evaluation of colorectal cancer screening. Full consent has been obtained from him for this, including risks of bleeding and perforation. PREOPERATIVE DIAGNOSIS: Colorectal cancer screening. POSTOPERATIVE DIAGNOSIS: PROCEDURE PERFORMED: ESTIMATED BLOOD LOSS: COMPLICATIONS: ANESTHESIA: Monitored anesthesia care. ASSISTANTS: SPECIMENS: POSTOPERATIVE DIAGNOSES: Colorectal cancer screening, colon polyps, diverticulosis, and internal hemorrhoids. PROCEDURES PERFORMED: Colonoscopy to cecum and terminal ileum with hot snare polypectomy, cold snare polypectomy, and biopsy and removal of polyps. DESCRIPTION OF PROCEDURE: The patient was placed in the left lateral decubitus position. The digital rectal exam revealed no abnormalities. The Olympus video pediatric colonoscope was entered into the rectum advanced easily to the cecum. Once in the cecum, I did identify cecal pouch with appendiceal orifice and a normal-appearing ileocecal valve. The terminal ileum was cannulated and appeared normal. The scope was withdrawn back into the colon. The entire cecum was well visualized. In the cecum, there was an approximately 8 mm polyp, which was removed by hot snare polypectomy and recovered by suction. The site appeared clean without any residual polyp or bleeding. Just near that was an approximately 2 or 3 mm polyp, which was removed by cold snare polypectomy, but the piece was not recovered given its small size. The remainder of the cecum appeared normal. The scope was then slowly withdrawn assessing all mucosal surfaces carefully. Preparation was excellent. In the proximal ascending colon, there were 3 polyps. One was only 3 mm in diameter and was removed by cold biopsy forceps completely. The other 2 polyps were approximately 10 to 12 mm in size and both removed by hot snare polypectomies. The polypectomy sites appeared clean, without any sign of residual polyp nor bleeding. Both polyps were recovered by suction. I did not visualize any other polyps, colitis, nor angiodysplasia. There was a mild amount of sigmoid diverticulosis. In the rectum, scope was retroflexed visualizing internal hemorrhoids, but no other pathology. The rectal mucosa appeared normal. The scope was straightened and withdrawn from the patient. He tolerated the procedure well and was returned to recovery area in stable condition. IMPRESSION: 1. Colon polyps. 2. Diverticulosis. 3. Internal hemorrhoids. PLAN: The results of the pathology will be checked. Given these findings, I would recommend a repeat colonoscopy in 5 years for further screening and surveillance. He was advised not to use any aspirin or NSAIDs for 1 week. He will see me otherwise on a p.r.n. basis. MD BERTHA Peraza/SOPHIE / [id number] MTDD
== END 2024-12-06 11:41 | disposition home or self-care (01) ==
PROVIDERS: PCP Physician Assistant; Visit Provider Internal Medicine
PROC: 0DJD8ZZ Inspection of Lower Intestinal Tract, Via Natural or Artificial Opening Endoscopic (ICD-10-PCS; CPT 45378; principal; 2024-12-06 09:40)
DX: Z12.11 Encounter for screening for malignant neoplasm of colon (principal); D12.0 Benign neoplasm of cecum; D12.2 Benign neoplasm of ascending colon; K57.30 Diverticulosis of large intestine without perforation or abscess without bleeding; K64.8 Other hemorrhoids; I10 Essential (primary) hypertension; E78.5 Hyperlipidemia, unspecified; K21.9 Gastro-esophageal reflux disease without esophagitis; Z79.82 Long term (current) use of aspirin; Z79.899 Other long term (current) drug therapy; Z79.02 Long term (current) use of antithrombotics/antiplatelets
CPT/HCPCS: 45385; 45380; 88305; J2003; J2250; J2704

== ENCOUNTER 2024-12-27 09:43 | Outpatient (AMB) | payer MEDICARE, SELFPAY ==
--- OUTSIDE RECORDS SUMMARY | 2023-11-19 04:30 | XMS_ITS ---
Author Organization [facility] Address [address] [address] Care Team Providers Care Director Teen Post Name Role Phone David Briseno Primary Care Provider AHMET Elena [phone] Allergies Allergen (clinical drug ingredient) Drug/Non Drug [...] Active Encounters Encounter Location Date Provider Diagnosis [facility] [address] [address] 11/19/2023 AHMET REVELES Plan Of Treatment No Information Progress Notes * CHRISRaquel LOAIZAhDOB: (69 yo M)Acc No.[id number]:11/19/2023 Consult note Patient: Echo PHAMLeonardJeronimoLalo Provider: Talon Reveles DPM :1955 A ge:67 Y S ex:Male Date:11/19/2023 Phone: Address:[address] [place] [address], [phone] Pcp:ISSAC Bauman Subjective: * Chief Complaints: * [...] Electronic signature of LINDA REVELES D.P.M on 12/27/2024 at 11:50 AM EDT Sign off status: Pending * Provider: Talon Reveles DPM Date: 11/19/2023 Generated for Devendra clark/Lee/Zulma on: 12/27/2024 11:50 AM EDT
--- OUTSIDE RECORDS SUMMARY | 2024-01-08 09:00 | XMS_ITS ---
Author Organization [facility] Address [address] [place] [phone] Care Team Providers Care Change Management Expert Name Role Phone David Madden Primary Care Provider Unavailab Trey Ruffin Unavailable [phone] Allergies Allergen (clinical drug ingredient) Drug/Non Drug [...] 01/08/2024 Encounters Encounter Location Date Provider Diagnosis [facility] [address] [place] [phone] 01/08/2024 Trey Gaviria Plan Of Treatment No Information Progress Notes * Raquel PEREZhDOB: 7 (69 yo M)Acc No.[id number]:01/08/2024 Progress Notes Patient: Lalo LIAO Provider: Talon Gaviria DPM :1955 A ge:68 Y S ex:Male Date:01/08/2024 Address:[address] [place], [place] [phone] Pcp:David Madden Subjective: * Chief Complaints: * [...] Pending * Provider: Talon Gaviria DPM Date: 01/08/2024 Generated for Devendra Reyes/Laviniaitting on: 0 12/27/2024 11:50 AM EDT
--- OUTSIDE RECORDS SUMMARY | 2024-02-12 07:20 | XMS_ITS ---
Author Organization [facility] Address [address] [place] [phone] Care Team Providers Care Awning Hanger Name Role Phone David Madden Primary Care Provider Unavailab Rajeev Brock [phone] REASON FOR VISIT Patient presents today for a colon screening Encounters Encounter Location Date Provider Diagnosis [facility] [address] [place] [phone] 02/12/2024 Rajeev Lucas Plan Of Treatment No Information Progress Notes * ART PEREZHDOB: 7 (69 yo M)Acc No.[id number]:02/12/2024 Progress Notes Patient: CHAPIN LIAO Provider: Jaja Lucas MD :1955 A ge:68 Y S ex:Male Date:02/12/2024 Address:[address] [place], [place] [id number] Pcp:David Madden Subjective: * Chief Complaints: * [...] Pending * Provider: Jaja Lucas MD Date: 1 Generated for Printi ng/Faxing/eTransmitting on: 0 12/27/2024 11:50 AM EDT
--- OUTSIDE RECORDS SUMMARY | 2024-09-22 03:30 | XMS_ITS ---
Author Organization [facility] Address [address] [place] [address] Care Team Providers Care Recruitment Consultant Name Role Phone David Madden Primary Care Provider Unavailab Rajeev Brock [phone] REASON FOR VISIT screening Encounters Encounter Location Date Provider Diagnosis [facility] Outpatient [address] [place], [place] [phone] 09/22/2024 Rajeev Lucas Plan Of Treatment No Information Progress Notes * ART PEREZHDOB: (69 yo M)Acc No.[id number]:09/22/2024 COLON WITH MAC Patient: CHAPIN LIAO Provider: Jaja Lucas MD :1955 A ge:68 Y S ex:Male Date:09/22/2024 Address:[address] [place], [place] [phone] Pcp:David Madden Subjective: * Chief Complaints: * [...] MD Date: 0 09/22/2024 Generated for Elsyi ng/Fasmitag/eTransmitting on: 0 12/27/2024 11:50 AM EDT
--- OUTSIDE RECORDS SUMMARY | 2024-12-06 05:40 | XMS_ITS ---
Author Organization [facility] Address [address] [place] [address] Care Team Providers Care Payroll Accountant Name Role Phone David Madden Primary Care Provider Unavailab Rajeev Brock [phone] REASON FOR VISIT screening Encounters Encounter Location Date Provider Diagnosis [facility] Out[place] [address] [place], [place] [id number] 12/06/2024 Rajeev Lucas Plan Of Treatment No Information Progress Notes * ART PEREZHDOB: (69 yo M)Acc No.[id number]:12/06/2024 COLON WITH MAC Patient: CHAPIN LIAO Provider: Jaja Lucas MD :1955 A ge:68 Y S ex:Male Date:12/06/2024 Address:[address] [place], [place] [phone] Pcp:David Madden Subjective: * Chief Complaints: * [...] Lucas MD Date: 0 12/06/2024 Generated for Elsyi ng/Fasmitag/eTransmitting on: 0 12/27/2024 11:50 AM EDT
--- OUTSIDE RECORDS SUMMARY | 2024-12-27 11:50 | XMS_ITS | Patient Health Record ---
Author Organization [facility] Address [address] [place] [address] Care Team Providers Care Window Machine Operator Name Role Phone David Madden Primary Care Provider Rajeev Driscoll [phone] Allergies Allergen (clinical drug ingredient) Drug/Non Drug Allergy documented on EMR Reaction Allergy Type Onset Date Status grass,trees,mold,cat s, dogs (uncoded) Unknown Allergy Active Results Component Value Reference Range Notes Pathology (Not yet reviewed by provider) Interpretation: Performing Lab:[facility], [address] [place] [phone] Notes/Report: Reason For Referral No Information Medications Medication [...] Status Risk Notes Problem Colon cancer screening (749600709) Colon cancer screening (Z12.11) Active confirmed Problem Pre-procedure evaluation check (026701035) Encounter for other preprocedural examination (Z01.818) Active confirmed Problem Long-term current use of aspirin (3248753981889 03) Aspirin long-term use (Z79.82) Active confirmed Vital Signs Blood pressure diastolic 00 mm Hg 02/10/2024 Height 69.5 in 02/10/2024 Blood pressure systolic 00 mm Hg 02/10/2024 Weight 190 lbs 02/10/2024 BMI 27.65 kg/m2 02/10/2024 Encounters Encounter Location Date Provider Diagnosis [facility] Outpatient [address] [place] [phone] 12/06/2024 aRjeev Lucas [facility] [address] [place] [address] 02/10/2024 Rajeev Lucas Colon cancer screeni ng Z12.11 ; Encounter for other preprocedural examination Z01.818 and Aspirin long-term use Z79.82 [facility] [address] [place] [address] 02/10/2024 Rajeev Lucas Assessments Encounter Date Diagnosis [...] of the procedure. He is leaving for [place] for the winter in a month or [...] of the procedure. He is leaving for [place] for the winter in a month or [...] of the procedure. He is leaving for [place] for the winter in a month or [...] advised of his progress. Plan Of Treatment Pending Test Test Name Order Date Pathology 12/06/2024 Future Test Test Name Order Date COLONOSCOPY 07/14/2013 COLONOSCOPY 02/10/2024 Insurance Providers Payer Name Payer Address Payer Phone Subscriber Number Group Number Insured Name Patient Relationship to Insured Coverage Start Date Coverage End Date [facility] [address] [place] [phone] [id number] CHAPIN PEREZ Self - patient is the insured Medical (General) History Medical History History ICD Code Denies ID,DM,CVA,renal disease HTN Hyperlipidemia GERD EGD/Colonoscopy 2003 with [...]
--- OUTSIDE RECORDS SUMMARY | 2024-12-27 11:51 | XMS_ITS | Patient Health Record ---
Author Organization [facility] Address [address] [place] [address] Care Team Providers Care Clothing Supervisor Name Role Phone David Madden Primary Care Provider Unavailab Trey Rufifn Unavailable [phone] Allergies Allergen (clinical drug ingredient) Drug/Non Drug [...] ast year? Yes Points 0 Interpretation Negative Plan Of Treatment No Information Insurance Providers Payer Name Payer Address Payer Phone Subscriber Number Group Number Insured Name Patient Relationship to Insured Coverage Start Date Coverage End Date [employer] [place] [employer] [address] [place] [address] [phone] [id number] Lalo Hayes Self - patient is the insured Medical (General) History Medical History History ICD Code Hypertension Hyperlipidemia CAD (Cholesterol) Surgical History Surgery Date(Month/Year) cyst removal shoulder surgery nasal surgery
--- OUTSIDE RECORDS SUMMARY | 2024-12-27 11:51 | XMS_ITS | Clinical Summary ---
Author Organization [facility] Address [address] [place] [address] Care Team Providers Care Ball Ender Name Role Phone Unavailable Primary Care Provider [...] COVID-19 Vaccine ( - 2023-2 5 season) 2024 Influenza (#1) 2024 RSV (1 - 1-dose [...]
--- OUTSIDE RECORDS SUMMARY | 2024-12-27 11:51 | XMS_ITS | Patient Health Record ---
Author Organization [facility] Address [address] [facility] [address] [place] [address] Care Team Providers Care Wool Shearing Supervisor Name Role Phone David Briseno Primary Care Provider AHMET Elena Unavailable [phone] Allergies Allergen (clinical drug ingredient) Drug/Non Drug [...] Spironolactone 25 MG 1 tablet Orally Active Plan Of Treatment No Information Insurance Providers Payer Name Payer Address Payer Phone Subscriber Number Group Number Insured Name Patient Relationship to Insured Coverage Start Date Coverage End Date [employer] [place] MED[employer] ADVANTAGE 1 [facility] [address] [place] [phone] [id number] Lalo Hayes Self - patient is the insured Medical (General) History Medical History History ICD Code asthma hypertension coronary artery disease gastroesophageal reflux disease (GERD) anxiety bladder cystitis mild COPD complex renal cyst hyperlipidemia COVID vaccinated Surgical History Surgery Date(Month/Year) removal of cyst cystostomy shoulder surgery nasal surgery
== END 2024-12-27 10:07 | disposition home or self-care (01) ==
LOC: HO.HMGAL 09:43
PROVIDERS: PCP Physician Assistant; Visit Provider Registered Nurse Emergency
DX: J30.89 Other allergic rhinitis (principal)
CPT/HCPCS: 95117; 95165

== ENCOUNTER 2025-01-26 09:01 | Outpatient (AMB) | payer MEDICARE, SELFPAY ==
--- OUTSIDE RECORDS SUMMARY | 2023-11-19 04:30 | XMS_ITS ---
Author Organization [facility] Address [address] [address] Care Team Providers Care Pattern Chain Builder Name Role Phone David Briseno Primary Care Provider AHMET Elena [phone] Allergies Allergen (clinical drug ingredient) Drug/Non Drug [...] Active Encounters Encounter Location Date Provider Diagnosis [facility] [address] [address] 11/19/2023 AHMET REVELES Plan Of Treatment No Information Progress Notes * CHRISRaquel LOAIZAhDOB: (69 yo M)Acc No.[id number]:11/19/2023 Consult note Patient: Echo PHAMLeonardJeronimoLalo Provider: Talon Reveles DPM :1955 A ge:67 Y S ex:Male Date:11/19/2023 Phone: Address:[address] [place] [address], [phone] Pcp:ISSAC Bauman Subjective: * Chief Complaints: * [...] Electronic signature of LINDA REVELES D.P.M on 01/26/2025 at 09:48 AM EDT Sign off status: Pending * Provider: Talon Reveles DPM Date: 0 11/19/2023 Generated for Devendra clark/Lee/Zulma on: 1 09:48 AM EDT
--- OUTSIDE RECORDS SUMMARY | 2024-01-08 09:00 | XMS_ITS ---
Author Organization [facility] Address [address] [place] [address] Care Team Providers Care Educational Administration Teacher Name Role Phone David Madden Primary Care Provider Unavailab Trey Ruffin Unavailable [phone] Allergies Allergen (clinical drug ingredient) Drug/Non Drug [...] 01/08/2024 Encounters Encounter Location Date Provider Diagnosis [facility] [address] [place] [phone] 01/08/2024 Trey Gaviria Plan Of Treatment No Information Progress Notes * Raquel PEREZhDOB: 7 (69 yo M)Acc No.[id number]:01/08/2024 Progress Notes Patient: Lalo LIAO Provider: Talon Gaviria DPM :1955 A ge:68 Y S ex:Male Date:01/08/2024 Address:[address] [place], [place] [phone] Pcp:David Madden Subjective: * Chief Complaints: * [...] 01/08/2024 Generated for Devendra Reyes/Zulma on: 1 09:48 AM EDT
--- OUTSIDE RECORDS SUMMARY | 2024-02-12 07:20 | XMS_ITS ---
Author Organization [facility] Address [address] [place] [phone] Care Team Providers Care Medical Videographer Name Role Phone David Madden Primary Care Provider Unavailab Rajeev Brock [phone] REASON FOR VISIT Patient presents today for a colon screening Encounters Encounter Location Date Provider Diagnosis [facility] [address] [place] [phone] 02/12/2024 Rajeev Lucas Plan Of Treatment No Information Progress Notes * ART PEREZHDOB: [birth year] (69 yo M)Acc No.[id number]:02/12/2024 Progress Notes Patient: CHAPIN LIAO Provider: Jaja Lucas MD :1955 A ge:68 Y S ex:Male Date:02/12/2024 Address:[address] [place], [place] [phone] Pcp:David Madden Subjective: * Chief Complaints: * [...] MD Date: Generated for Elsyi ng/Fasmitag/eTransmitting on: 09:49 AM EDT
--- OUTSIDE RECORDS SUMMARY | 2024-09-22 03:30 | XMS_ITS ---
Author Organization [facility] Address [address] [place] [address] Care Team Providers Care Bottom Polisher Name Role Phone David Madden Primary Care Provider Unavailab Rajeev Brock [phone] REASON FOR VISIT screening Encounters Encounter Location Date Provider Diagnosis [facility] Outpatient [address] [place], [place] [phone] 09/22/2024 Rajeev Lucas Plan Of Treatment No Information Progress Notes * ART PEREZHDOB: (69 yo M)Acc No.[id number]:09/22/2024 COLON WITH MAC Patient: CHAPIN LIAO Provider: Jaja Lucas MD :1955 A ge:68 Y S ex:Male Date:09/22/2024 Address:[address] [place], [place] [phone] Pcp:David Madden Subjective: * Chief Complaints: * [...] Lucas MD Date: 0 09/22/2024 Generated for Elsyi amber/Fasmitag/eTransmitting on: 1 09:48 AM EDT
--- OUTSIDE RECORDS SUMMARY | 2024-12-06 05:40 | XMS_ITS ---
Author Organization [facility] Address [address] [place] [address] Care Team Providers Care Edge Banding Off Bearer Name Role Phone David Madden Primary Care Provider Unavailab Rajeev Brock [phone] REASON FOR VISIT screening Encounters Encounter Location Date Provider Diagnosis [facility] [place] [address] [place], [place] [phone] 12/06/2024 Rajeev Lucas Plan Of Treatment No Information Progress Notes * ART PEREZHDOB: (69 yo M)Acc No.[id number]:12/06/2024 COLON WITH MAC Patient: CHAPIN LIAO Provider: Jaja Lucas MD :1955 A ge:68 Y S ex:Male Date:12/06/2024 Address:[address] [place], [place] [phone] Pcp:David Madden Subjective: * Chief Complaints: * [...] 12/06/2024 Generated for Elsyi ng/Fasmitag/eTransmitting on: 1 09:48 AM EDT
--- OUTSIDE RECORDS SUMMARY | 2025-01-26 09:49 | XMS_ITS | Patient Health Record ---
Author Organization [facility] Address [address] [facility] [address] [place] [address] Care Team Providers Care Attending Ambulatory Care Name Role Phone David Briseno Primary Care Provider AHMET Elena Unavailable [phone] Allergies Allergen (clinical drug ingredient) Drug/Non Drug [...] Date [employer] [place] [employer] ADVANTAGE 1 [facility] [address] [place] [phone] [id number] Lalo Hayes Self - patient is the insured Medical (General) History Medical History History ICD Code asthma hypertension coronary artery disease gastroesophageal reflux disease (GERD) anxiety bladder cystitis mild COPD complex renal cyst hyperlipidemia COVID vaccinated Surgical History Surgery Date(Month/Year) removal of cyst cystostomy shoulder surgery nasal surgery
--- OUTSIDE RECORDS SUMMARY | 2025-01-26 09:49 | XMS_ITS | Patient Health Record ---
Author Organization [facility] Address [address] [place] [address] Care Team Providers Care Butter Printer Name Role Phone David Madden Primary Care Provider Rajeev Driscoll [phone] Allergies Allergen (clinical drug ingredient) Drug/Non Drug Allergy documented on EMR Reaction Allergy Type Onset Date Status grass,trees,mold,cat s, dogs (uncoded) Unknown Allergy Active Results Component Value Reference Range Notes Pathology (Not yet reviewed by provider) Interpretation: Performing Lab:[facility], [address] [place] [id number] Notes/Report: Reason For Referral No Information Medications Medication SIG (Take, Route, Frequency, Duration) Notes Start Date End Date Status Allergy Active Flonase Active Rosuvastatin Calcium 40 MG Oral; Duration: 90 Active Pantoprazole Sodium 40 MG 1 tablet 1/2 t o 1 hour before morning meal Orally Once a day Active Lisinopril 40 MG 1 tablet Orally Once a day Active Aspirin Adult Low Dose 81 MG 1 tablet Or ally Once a day; Duration: 30 day(s) Active Singulair 10 MG 1 tablet Orally Once a day; Duration: 30 day(s) Active Spironolactone 25 MG 1/2 tablet Orally O nce a day Active Problems Problem Type SNOMED Code ICD Code Onset Dates Problem Status W/U Status Risk Notes Problem Colon cancer screening (838545466) Colon cancer screening (Z12.11) Active confirmed Problem Pre-procedure evaluation check (999193351) Encounter for other preprocedural examination (Z01.818) Active confirmed Problem Long-term current use of aspirin (9081707873451 03) Aspirin long-term use (Z79.82) Active confirmed Vital Signs Blood pressure diastolic 00 mm Hg 02/10/2024 Height 69.5 in 02/10/2024 Blood pressure systolic 00 mm Hg 02/10/2024 Weight 190 lbs 02/10/2024 BMI 27.65 kg/m2 02/10/2024 Encounters Encounter Location Date Provider [place] [facility] [place] [address], [place] [id number] 12/06/2024 Rajeev Lucas [facility] [address] [place] [address] 02/10/2024 Rajeev Lucas Colon cancer screeni ng Z12.11 ; Encounter for other preprocedural examination Z01.818 and Aspirin long-term use Z79.82 [facility] [address] [place] [address] 02/10/2024 Rajeev Lucas Assessments Encounter Date Diagnosis [...] of the procedure. He is leaving for [place] for the winter in a month or [...] of the procedure. He is leaving for [place] for the winter in a month or [...] of the procedure. He is leaving for [place] for the winter in a month or [...] Insured Coverage Start Date Coverage End Date [facility] [address] [place] [address] [id number] CHRIS CHAPIN Self - patient is the insured Medical (General) History Medical History History ICD Code Denies [place],DM,CVA,renal disease HTN Hyperlipidemia GERD EGD/Colonoscopy 2003 with [...]
--- OUTSIDE RECORDS SUMMARY | 2025-01-26 09:50 | XMS_ITS | Patient Health Record ---
[facility] Address [address] [place] [address] Care Team Providers Care Features Reporter Name Role Phone David Madden Primary Care Provider Unavailab Trey Ruffin Unavailable [phone] Allergies Allergen (clinical drug ingredient) Drug/Non Drug [...] Medicare Advantage [address] [place] [address] [phone] [id number] Lalo Hayes Self - patient is the insured Medical (General) History Medical History History ICD Code Hypertension Hyperlipidemia CAD (Cholesterol) Surgical History Surgery Date(Month/Year) cyst removal shoulder surgery nasal surgery
--- OUTSIDE RECORDS SUMMARY | 2025-01-26 09:50 | XMS_ITS | Clinical Summary ---
Author Organization [facility] Address [address] [place] [address] Care Team Providers Care Fur Grader Name Role Phone Unavailable Primary Care Provider [...] of 2) 2006 COVID-19 Vaccine ( - 2024-2 6 season) 2024 Influenza (#1) 2024 RSV (1 [...]
== END 2025-01-26 09:01 | disposition home or self-care (01) ==
LOC: HO.HMGAL 09:01
PROVIDERS: PCP Physician Assistant; Visit Provider Registered Nurse Emergency
DX: J30.89 Other allergic rhinitis (principal)
CPT/HCPCS: 95117; 95165

== ENCOUNTER 2025-02-04 09:46 | Outpatient (AMB) | payer MEDICARE, SELFPAY ==
--- OUTSIDE RECORDS SUMMARY | 2023-11-19 04:30 | XMS_ITS ---
Author Organization [facility] Address [address] [address] Care Team Providers Care Duct Maker Name Role Phone David Briseno Primary Care Provider AHMET Elena Unavailable [phone] Allergies Allergen (clinical drug ingredient) Drug/Non Drug Allergy documented on EMR Reaction Allergy Type Onset Date Status Information temporarily unavailable fire ants (uncoded) anaphylaxis Allergy Active REASON FOR VISIT Rt foot great toe [...] Active Encounters Encounter Location Date Provider Diagnosis [facility] [address] [address] 11/19/2023 AHMET REVELES Plan Of Treatment No Information Progress Notes * Rqauel PEREZhDOB: 7 (69 yo M)Acc No.[id number]:11/19/2023 Consult note Patient: Lalo LIAO Provider: Talon Reveles DPM :1955 A ge:67 Y S ex:Male Date:11/19/2023 Phone: Address:[address] [place] [address], [id number] Pcp:ISSAC Bauman Subjective: * Chief Complaints: * [...] Electronic signature of LINDA REVELES D.P.M on 02/04/2025 at 10:59 AM EDT Sign off status: Pending * Provider: Talon Reveles DPM Date: 0 11/19/2023 Generated for Devendra clark/Lee/Zulma on: 10:59 AM EDT
--- OUTSIDE RECORDS SUMMARY | 2024-01-08 09:00 | XMS_ITS ---
Author Organization [facility] Address [address] [place] [phone] Care Team Providers Care Crusher Plant Operator Name Role Phone David Madden Primary Care Provider Unavailab Trey Ruffin Unavailable [phone] Allergies Allergen (clinical drug ingredient) Drug/Non Drug Allergy documented on EMR Reaction Allergy Type Onset Date Status Information temporarily unavailable Fire Ant anaphylaxis Drug Allergy Active Social [...] 01/08/2024 Encounters Encounter Location Date Provider Diagnosis [facility] [address] [phone] 01/08/2024 Trey Gaviria Plan Of Treatment No Information Progress Notes * Raquel PEREZhDOB: 7 (69 yo M)Acc No.[id number]:01/08/2024 Progress Notes Patient: Lalo LIAO Provider: Talon Gaviria DPM :1955 A ge:68 Y S ex:Male Date:01/08/2024 Address:[address] [place], [place] [phone] Pcp:David Madden Subjective: * Chief Complaints: * [...] 0 01/08/2024 Generated for Devendra Reyes/Zulma on: 1 10:59 AM EDT
--- OUTSIDE RECORDS SUMMARY | 2024-02-12 07:20 | XMS_ITS ---
Author Organization [facility] Address [address] [place] [phone] Care Team Providers Care Dirt Bike Racer Name Role Phone David Madden Primary Care Provider Unavailab Rajeev Brock [phone] REASON FOR VISIT Patient presents today for a colon screening Encounters Encounter Location Date Provider Diagnosis [facility] [address] [place] [phone] 02/12/2024 Rajeev Lucas Plan Of Treatment No Information Progress Notes * ATR PEREZHDOB: 7 (69 yo M)Acc No.[id number]:02/12/2024 Progress Notes Patient: CHAPIN LIAO Provider: Jaja Lucas MD :1955 A ge:68 Y S ex:Male Date:02/12/2024 Address:[address] [place], [place] [phone] Pcp:David Madden Subjective: * Chief Complaints: * [...] MD Date: Generated for Elsyi ng/Fasmitag/eTransmitting on: 10:59 AM EDT
--- OUTSIDE RECORDS SUMMARY | 2024-09-22 03:30 | XMS_ITS ---
Author Organization [facility] Address [address] [place] [address] Care Team Providers Care Tissue Recovery Technician Name Role Phone David Madden Primary Care Provider Unavailab Rajeev Brock [phone] REASON FOR VISIT screening Encounters Encounter Location Date Provider Diagnosis [facility] Outpatient [address] [place], [place] [phone] 09/22/2024 Rajeev Lucas Plan Of Treatment No Information Progress Notes * ART PEREZHDOB: (69 yo M)Acc No.[id number]:09/22/2024 COLON WITH MAC Patient: CHAPIN LIAO Provider: Jaja Lucas MD :1955 A ge:68 Y S ex:Male Date:09/22/2024 Address:[address] [place], [place] [phone] Pcp:David Madden Subjective: * Chief Complaints: * [...] 09/22/2024 Generated for Elsyi amber/Fasmitag/eTransmitting on: 1 10:59 AM EDT
--- OUTSIDE RECORDS SUMMARY | 2024-12-06 05:40 | XMS_ITS ---
Author Organization [facility] Address [address] [place] [address] Care Team Providers Care Weld Lay Out Worker Name Role Phone David Madden Primary Care Provider Unavailab Rajeev Brock [phone] REASON FOR VISIT screening Encounters Encounter Location Date Provider Diagnosis [facility] [place] [address] [place], [place] [id number] 12/06/2024 Rajeev Lucas Plan Of Treatment No Information Progress Notes * ART PEREZHDOB: (69 yo M)Acc No.[id number]:12/06/2024 COLON WITH MAC Patient: CHAPIN LIAO Provider: Jaja Lucas MD :1955 A ge:68 Y S ex:Male Date:12/06/2024 Address:[address] [place], [place] [phone] Pcp:David Madden Subjective: * Chief Complaints: * [...] Lucas MD Date: 0 12/06/2024 Generated for lEsyi ng/Fasmitag/eTransmitting on: 1 10:59 AM EDT
[2025-02-04 09:51] VITALS: BP 146/62; PULSE 76; O2SAT 96; BMI 27.8
--- NOTE | 2025-02-04 09:51 | A.OFFVIS_ITS ---
Vital Signs 02/04/25 09:51 Height 5 ft 9.5 in Weight 190 lb 11.198 oz BMI 27.8 BP 146/62 H Blood Pressure Location Lt brachial Position Sitting Pulse 76 Pulse Source Pulse Oximeter Pulse Oximetry (%) 96 Oxygen Delivery Method Room Air Intake Visit Reasons: COPD Button Sewer Hand Required: No Accompanied by: Spouse Allergies cat dander (cats) Allergy (Verified 02/04/25 09:54) Sneezing mite-Dermatophagoides farinae, michael (dust mite - [place]) Allergy (Verified 02/04/25 09:54) Sneezing fire ants Allergy (Severe, Uncoded 12/06/24 08:44) Anaphylaxis HPI Comments Details: The patient is a 69-year-old gentleman presenting with worsening shortness of breath and cough. Apparently the patient has had allergies multiple utilizing a does suffer from nasal polyposis. He has been getting allergy shots for many years. He has been developing worsening shortness of breath in addition to cough. Moderate severity. He has been very active most of his life but now he has been noticing more shortness of breath with going up a flight of stairs or an incline. The patient was evaluated previously with pulmonary function studies and was told to have COPD . The patient was then seen by his ENT doctor. He was given a rescue inhaler at some point he was also given an Advair HFA inhaler. Had been using them regularly although he did not see any significant difference so he stopped using the Advair regularly. The patient also recently underwent a pulmonary function study at [facility] which we personally reviewed. It appears the patient does have a significant obstruction consistent mild obstructive lung disease. Likely uncontrolled asthma with significant small airways disease and air trapping. The patient has indeed nasal polyposis suggesting a component of allergic asthma. No known adverse reaction to aspirin. Therefore, less likely samter's triad. He has had elevations in his eosinophils and does have issues with significant allergies. Therefore, the patient may be a good candidate for biologics in the near future if he does not respond to respiratory therapy. No recent imaging studies review at this time. Will have the patient continue the Advair. I did instruct him how to use a spacer and he will rinse after using the Advair to minimize adverse effects like he had previously. In addition to the will add Singulair. He has also been using Zyrtec to see if we can maximize his allergy therapy in order to improve his symptoms. The patient will return after having x-rays and blood work. He usually goes to [place] for the winter so will see him before his trip. At that point will decide about biologic therapy. The patient does get allergy shots. However, returns he goes to [place] he stops the allergy shots in the may be some issues with the fragmentation of the shots. As far as imaging studies of the patient does not have any recent x-rays to review. He did have a CT scan of the coronary arteries back in 2018 at [facility] which I personally reviewed. The patient did have evidence of bronchitis and some bronchiectatic looking airways although very limited lung windows. Will await his chest x-ray. 03/04/2024 the patient is here for a pulmonary follow-up visit. He is overall doing okay. He completed the Advair. He needs to get a replacement. The patient does have significant nasal congestion continues have shortness of breath chest tightness. Moderate severity. We did look at the blood work. He does have an elevated eosinophil count and also has an elevated IgE count consistent with allergic asthma and also nasal polyposis. He will be a good candidate for Dupixent we will be able to treat his asthma symptoms nasal polyps and improve his quality of life. The patient will be switch over to Symbicort in the meantime. He is going to continue the singular. He feels like it affects of sleep so he can take it in the morning if so. He is going to be going to [place] soon. He is going to consider either continuing his allergy shots or going on Dupixent. She is going to call me if he decides to do so. In the meantime will switch over his fluticasone nasal spray 2 Astelin nasal sprays to see this is a little bit more helpful since the fluticasone is not doing much right now. Also do the combination but at this point will try to simplify the regimen since she does not like to take too many medications. 09/21/2024 the patient is here for pulmonary follow-up visit. Overall the patient is doing well. He has got back from [place]. While he is in [place] he is actually doing significantly better. His allergies are not an issue. Quickly when he comes to [place] area started developing worsening chest tightness wheezing in allergy symptoms. He does have an Advair HFA which is very helpful for him but he is extremely expensive. I do believe Dulera will be a better option for him anyway. Will send the prescription to the pharmacy. The patient also is doing allergy shots. He does have significant eosinophilia and also has an elevated IgE. Therefore he will be a good candidate for Dupixent if he does decide to switch over from allergy shots to biologic therapies. Will assess his response to Dulera when he comes back in the fall. He has any issues prior to that he will call for an earlier assessment. 02/04/2025 the patient is here for pulmonary follow-up visit. He continues to have significant chest tightness and cough. Moderate severity. Also complains of nasal congestion. Has significant allergies. He has been doing allergy shots but they have been not very effective lately. Specially since it has been fragmented. The patient continues on multiple inhalers although he is getting some discomfort from using the Advair HFA. Therefore he is using Asmanex. The Asmanex does not seem to be as helpful but he does not give us much irritation to the chest. He is using a spacer and he is monitoring closely for any hoarseness. He is trying to gargle with mouth wash or saltwater to minimize his symptoms. In the meantime the patient does have blood work demonstrating significant eosinophilia and significant elevations in the IgE. Therefore the patient will benefit from biologics and based on the fact that he is not responding to his respiratory therapy. The patient can either start Fasenra because of his elevated eosinophils or start Dupixent. Will submit to see which 1 asbestos covered for insurance coverage. He continues a nasal therapy. In the meantime we will continue his inhaler therapy and will follow-up in the spring. If any issues arise she can always call further recommendations. [facility] Medical History Anxiety Asthma COPD (chronic obstructive pulmonary disease) GERD (gastroesophageal reflux disease) BPH (benign prostatic hyperplasia) Arthritis Nasal polyps HTN (hypertension) HLD (hyperlipidemia) CAD (coronary artery disease) Surgical History History of esophagogastroduodenoscopy (EGD) H/O colonoscopy Hx of removal of cyst History of cystostomy History of shoulder surgery History of nasal surgery Family History Father CAD (coronary artery disease) Mother Healthy adult Brother Melanoma Social History Housing: House Alcohol intake: current Alcohol intake frequency: a few times a week Alcohol type: wine Patient Tobacco Use Status: Never used Tobacco e-Cigarette/Vaping Use: Never Used Second Hand Smoke Exposure: No service: No Current occupational status: retired Current occupation: Retired Cognitive needs: No Hearing needs: No Vision needs: Yes (glasses) Review of Systems Const Denies chills, Denies fatigue, Denies fever(s), Denies frequent falls, Denies weakness, Denies weight gain and Denies weight loss ENT Denies dizziness, Reports nasal congestion and Reports nasal discharge Card Denies chest pain, Denies leg edema, Denies lightheadedness, Denies palpitations, Denies dyspnea, Reports dyspnea on exertion, Denies orthopnea and Denies other (loss of consciousness) Resp Denies cough, Denies dyspnea, Reports dyspnea on exertion and Reports wheezing GI Denies hematochezia and Denies change in stool character Musc Denies abnormal gait, Denies muscle weakness, Denies numbness, Denies radiating pain into limb and Denies tingling Neuro Denies abnormal gait, Denies dizziness, Denies frequent falls, Denies numbness, Denies tingling and Denies weakness Endo Denies fatigue and Denies palpitations Aller/Immun Reports wheezing Physical Exam Vital Signs: Last Vital Signs Pulse 76 02/04/25 09:51 BP 146/62 H 02/04/25 09:51 Pulse Ox 96 02/04/25 09:51 Oxygen Delivery Method Room Air 02/04/25 09:51 BMI result Body Mass Index 27.8 Const General: cooperative, comfortable, no acute distress, alert and awake Nutritional Appearance: average body habitus Orientation/consciousness: patient oriented x3 Neck Neck: Yes trachea midline and Yes supple Chest Chest palpation & inspection: normal inspection of the chest Resp Effort & Inspection: normal respiratory effort Auscultation: no wheezes and diminished lung sounds Cardio Rate: regular rate Rhythm: regular rhythm Heart sounds: S1 normal heart sound present and S2 normal heart sound present GI Auscultation: normal bowel sounds Skin General skin exam: no rashes or lesions noted Neuro General: patient oriented x3 and no focal motor deficits Extrem General: Yes no clubbing, cyanosis or edema Psych Appearance: grossly normal Assessment & Plan Assessment & Plan (1) Nasal polyps: Code(s): J33.9 - Nasal polyp, unspecified Category: Medical (2) Allergies: Code(s): T78.40XA - Allergy, unspecified, initial encounter Category: Medical Qualifiers: Encounter type: initial encounter Qualified Code(s): T78.40XA - Allergy, unspecified, initial encounter (3) Asthma: Comment: uncontrolled Code(s): J45.909 - Unspecified asthma, uncomplicated Category: Medical Qualifiers: Asthma complication type: uncomplicated Asthma persistence: persistent Asthma severity: severe Qualified Code(s): J45.50 - Severe persistent asthma, uncomplicated Plan Symbicort astelin nasal spray ROCÍO as needed continue Singulair would be a good candidate for Fasenra F/U 4-5 months Coding Level of Care Code Est Pt Level 4 (42180) Complex EM visit Add On G2211 Diagnoses Nasal polyps J33.9 Allergy, initial encounter T78.40XA Encounter type: initial encounter Severe persistent asthma without complication J45.50 Asthma complication type: uncomplicated Asthma persistence: persistent Asthma severity: severe Time Spent (min) 18
--- OUTSIDE RECORDS SUMMARY | 2025-02-04 10:59 | XMS_ITS | Patient Health Record ---
Author Organization [facility] Address [address] [place] [address] Care Team Providers Care Automatic Machine Attendant Name Role Phone David Madden Primary Care Provider Unavailab Rajeev Brock Unavailable [phone] Allergies Allergen (clinical drug ingredient) Drug/Non Drug Allergy documented on EMR Reaction Allergy Type Onset Date Status Information temporarily unavailable grass,trees,mold,cats, dogs (uncoded) Unknown Allergy Active Results Component Value Reference Range Notes Pathology (Not yet reviewed by provider) Interpretation: Performing Lab:[facility], [address] [place] [id number] Notes/Report: Reason For Referral No Information Medications [...] Problem Status W/U Status Risk Notes Problem Information temporarily unavailable Colon cancer screening (Z12.11) Active confirmed Problem Information temporarily unavailable Encounter for other preprocedural examination (Z01.818) Active confirmed Problem Information temporarily unavailable Aspirin long-term use (Z79.82) Active confirmed Vital Signs Blood pressure diastolic 00 mm Hg 02/10/2024 Height 69.5 in 02/10/2024 Blood pressure systolic 00 mm Hg 02/10/2024 Weight 190 lbs 02/10/2024 BMI 27.65 kg/m2 02/10/2024 Encounters Encounter Location Date Provider Diagnosis [facility] [place] [address] [place], [place] [id number] 12/06/2024 Rajeev Lucas [facility] [address] [place] [address] 02/10/2024 Rajeev Lucas Colon cancer screeni ng Z12.11 ; Encounter for other preprocedural examination Z01.818 and Aspirin long-term use Z79.82 [facility] [address] [place] [address] 02/10/2024 Rajeev Lucas Assessments Encounter Date Diagnosis [...] of the procedure. He is leaving for [place] for the winter in a month or [...] of the procedure. He is leaving for [place] for the winter in a month or [...] of the procedure. He is leaving for [place] for the winter in a month or [...] Insured Coverage Start Date Coverage End Date [facility] [address] [place] [address] [id number] CHRIS CHAPIN Self - patient is the insured Medical (General) History Medical History History ICD Code Denies [place],DM,CVA,renal disease HTN Hyperlipidemia GERD EGD/Colonoscopy 2003 with [...]
--- OUTSIDE RECORDS SUMMARY | 2025-02-04 11:00 | XMS_ITS | Clinical Summary ---
Author Organization [facility] Address [address] [place] [address] Care Team Providers Care Seamless Tube Mill Operator Name Role Phone Unavailable Primary Care Provider [...]
--- OUTSIDE RECORDS SUMMARY | 2025-02-04 11:00 | XMS_ITS | Patient Health Record ---
[facility] [place] Address [address] [place] [address] Care Team Providers Care Safety Admin Assistant Name Role Phone David Madden Primary Care Provider Unavailab Trey Ruffin Unavailable [phone] Allergies Allergen (clinical drug ingredient) Drug/Non Drug Allergy documented on EMR Reaction Allergy Type Onset Date Status Information temporarily unavailable Fire Ant anaphylaxis Drug Allergy Active Reason [...] Medicare Advantage [address] [place] [address] [phone] [id number] Lalo Hayes Self - patient is the insured Medical (General) History Medical History History ICD Code Hypertension Hyperlipidemia CAD (Cholesterol) Surgical History Surgery Date(Month/Year) cyst removal shoulder surgery nasal surgery
--- OUTSIDE RECORDS SUMMARY | 2025-02-04 11:00 | XMS_ITS | Patient Health Record ---
Author Organization [facility] Address [address] [facility] [address] [place] [address] Care Team Providers Care Switch Cleaner Name Role Phone David Briseno Primary Care Provider AHMET Elena Unavailable [phone] Allergies Allergen (clinical drug ingredient) Drug/Non Drug Allergy documented on EMR Reaction Allergy Type Onset Date Status Information temporarily unavailable fire ants (uncoded) anaphylaxis Allergy Active Reason For Referral No Information [...] Date [employer] [place] MEDIC[employer] ADVANTAGE 1 [facility] [address] [place] [phone] [id number] Lalo Hayes Self - patient is the insured Medical (General) History Medical History History ICD Code asthma hypertension coronary artery disease gastroesophageal reflux disease (GERD) anxiety bladder cystitis mild COPD complex renal cyst hyperlipidemia COVID vaccinated Surgical History Surgery Date(Month/Year) removal of cyst cystostomy shoulder surgery nasal surgery
== END 2025-02-04 10:25 | disposition home or self-care (01) ==
PROVIDERS: PCP Physician Assistant; Visit Provider Hospitalist
DX: J33.9 Nasal polyp, unspecified (principal); T78.40XA Allergy, unspecified, initial encounter; J45.50 Severe persistent asthma, uncomplicated
CPT/HCPCS: 99214; G2211

== ENCOUNTER → 2025-02-04 09:46 | Outpatient (BNVA) | payer MEDICARE, SELFPAY | PROVIDERS: PCP Physician Assistant; Visit Provider Hospitalist | DX: J33.9 Nasal polyp, unspecified (principal); T78.40XA Allergy, unspecified, initial encounter; J45.50 Severe persistent asthma, uncomplicated | CPT/HCPCS: 99212 ==

== ENCOUNTER 2025-02-09 09:32 | Outpatient (AMB) | payer MEDICARE, SELFPAY ==
--- OUTSIDE RECORDS SUMMARY | 2023-11-19 04:30 | XMS_ITS ---
Author Organization [facility] Address [address] [address] Care Team Providers Care Metal Door Assembler Name Role Phone David Briseno Primary Care Provider AHMET Elena [phone] Allergies Allergen (clinical drug ingredient) Drug/Non Drug [...] Active Encounters Encounter Location Date Provider Diagnosis [facility] [address] [address] 11/19/2023 AHMET REVELES Plan Of Treatment No Information Progress Notes * CHRISRaquel LOAIZAhDOB: (69 yo M)Acc No.[id number]:11/19/2023 Consult note Patient: Echo PHAMLeonardJeronimoLalo Provider: Talon Reveles DPM :1955 A ge:67 Y S ex:Male Date:11/19/2023 Phone: Address:[address] [place] [address], [place] [id number] Pcp:ISSAC Bauman Subjective: * Chief Complaints: * [...] Electronic signature of LINDA REVELES D.P.M on 02/09/2025 at 11:21 AM EDT Sign off status: Pending * Provider: Talon Reveles DPM Date: 0 11/19/2023 Generated for Devendra clark/Lee/Zulma on: 11:21 AM EDT
--- OUTSIDE RECORDS SUMMARY | 2024-01-08 09:00 | XMS_ITS ---
Author Organization [facility] Address [address] [place] [phone] Care Team Providers Care Roll Up Machine Operator Name Role Phone David Madden Primary Care Provider Unavailab Trey Ruffin Unavailable [phone] Allergies Allergen (clinical drug ingredient) Drug/Non Drug [...] 01/08/2024 Encounters Encounter Location Date Provider Diagnosis [facility] [address] [place] [phone] 01/08/2024 Trey Gaviria Plan Of Treatment No Information Progress Notes * Raquel PEREZhDOB: 7 (69 yo M)Acc No.[id number]:01/08/2024 Progress Notes Patient: Lalo LIAO Provider: Talon Gaviria DPM :1955 A ge:68 Y S ex:Male Date:01/08/2024 Address:[address] [place], [place] [phone] Pcp:David Madden Subjective: * Chief Complaints: * [...] 0 01/08/2024 Generated for Devendra Reyes/Zulma on: 11:20 AM EDT
--- OUTSIDE RECORDS SUMMARY | 2024-02-12 07:20 | XMS_ITS ---
Author Organization [facility] Address [address] [place] [phone] Care Team Providers Care Vp Customer Service Name Role Phone David Madden Primary Care Provider Unavailab Rajeev Brock [phone] REASON FOR VISIT Patient presents today for a colon screening Encounters Encounter Location Date Provider Diagnosis [facility] [address] [place] [phone] 02/12/2024 Rajeev Lucas Plan Of Treatment No Information Progress Notes * ART PEREZHDOB: 7 (69 yo M)Acc No.[id number]:02/12/2024 Progress Notes Patient: CHAPIN LIAO Provider: Jaja Lucas MD :1955 A ge:68 Y S ex:Male Date:02/12/2024 Address:[address] [place], [place] [id number] Pcp:David Madden Subjective: * Chief Complaints: * [...] Jaja Lucas MD Date: Generated for Elsyi ng/Fasmitag/eTransmitting on: 11:21 AM EDT
--- OUTSIDE RECORDS SUMMARY | 2024-09-22 03:30 | XMS_ITS ---
Author Organization [facility] Address [address] [place] [address] Care Team Providers Care Consultant Internship Name Role Phone David Madden Primary Care Provider Unavailab Rajeev Brock [phone] REASON FOR VISIT screening Encounters Encounter Location Date Provider Diagnosis [facility] Outpatient [address] [place], [place] [phone] 09/22/2024 Rajeev Lucas Plan Of Treatment No Information Progress Notes * ART PEREZHDOB: (69 yo M)Acc No.[id number]:09/22/2024 COLON WITH MAC Patient: CHAPIN LIAO Provider: Jaja Lucas MD :1955 A ge:68 Y S ex:Male Date:09/22/2024 Address:[address] [place], [place] [phone] Pcp:David Madden Subjective: * Chief Complaints: * [...] 09/22/2024 Generated for Elsyi amber/Fasmitag/eTransmitting on: 1 11:21 AM EDT
--- OUTSIDE RECORDS SUMMARY | 2024-12-06 05:40 | XMS_ITS ---
Author Organization [facility] Address [address] [place] [address] Care Team Providers Care Supervisor Bridges And Buildings Name Role Phone David Madden Primary Care Provider Unavailab Rajeev Brock [phone] REASON FOR VISIT screening Encounters Encounter Location Date Provider Diagnosis [facility] [place] [address] [place], [place] [phone] 12/06/2024 Rajeev Lucas Plan Of Treatment No Information Progress Notes * ART PEREZHDOB: (69 yo M)Acc No.[id number]:12/06/2024 COLON WITH MAC Patient: CHAPIN LIAO Provider: Jaja Lucas MD :1955 A ge:68 Y S ex:Male Date:12/06/2024 Address:[address] [place], [place] [phone] Pcp:David Madden Subjective: * Chief Complaints: * [...] 0 12/06/2024 Generated for Elsyi ng/Fasmitag/eTransmitting on: 1 11:21 AM EDT
--- NOTE | 2025-02-09 09:36 | A.OFFVIS_ITS ---
Vital Signs 02/09/25 09:37 Height 5 ft 9.5 in Weight 191 lb 12.835 oz BMI 27.9 BP 120/74 Blood Pressure Location Lt brachial Position Sitting Pulse 76 Intake Visit Reasons: 1 yr follow up Intake Note: 1 year follow-up with ekg feeling good Sport Intern Required: No Allergies cat dander (cats) Allergy (Verified 02/04/25 09:54) Sneezing mite-Dermatophagoides farinae, michael (dust mite - [place]) Allergy (Verified 02/04/25 09:54) Sneezing fire ants Allergy (Severe, Uncoded 12/06/24 08:44) Anaphylaxis Medication List - Last Reconciled 02/09/25 by Shine Marshall MD albuterol sulfate 90 mcg/actuation (Ventolin HFA) 1 puff inhalation QID 30 days aspirin (Adult Low Dose Aspirin) 81 mg PO DAILY azelastine 2 sprays intranasal BID 30 days budesonide-formoterol 160-4.5 mcg/actuation (Symbicort) 2 puffs inhalation BID 30 days citalopram 10 mg PO DAILY 90 days lisinopril 40 mg PO DAILY lorazepam 0.5 mg PO BEDTIME PRN 10 days montelukast (Singulair) 10 mg PO BEDTIME 30 days pantoprazole 40 mg PO DAILY 90 days rosuvastatin (Crestor) 20 mg PO DAILY spironolactone 12.5 mg (1/2 x 25 mg) PO DAILY 90 days HPI Comments Details: Jeronimo comes for follow-up. She has been doing well. She has been participate in regular physical activity including high-level aerobic exercise as per him. He has no exertional chest pain. Denies any shortness of breath. No orthopnea, PND, leg edema. His LDL is in his mid 90s on current dose of Crestor at 20 mg which she reduced by himself. He denies any palpitations. No heart failure symptoms. No lightheadedness, syncope. Blood pressures been generally well controlled. [facility] Medical History Anxiety Asthma COPD (chronic obstructive pulmonary disease) GERD (gastroesophageal reflux disease) BPH (benign prostatic hyperplasia) Arthritis Nasal polyps HTN (hypertension) HLD (hyperlipidemia) CAD (coronary artery disease) Surgical History History of esophagogastroduodenoscopy (EGD) H/O colonoscopy Hx of removal of cyst History of cystostomy History of shoulder surgery History of nasal surgery Family History Father CAD (coronary artery disease) Mother Healthy adult Brother Melanoma Social History Housing: House Alcohol intake: current Alcohol intake frequency: a few times a week Alcohol type: wine Patient Tobacco Use Status: Never used Tobacco e-Cigarette/Vaping Use: Never Used Second Hand Smoke Exposure: No service: No Current occupational status: retired Current occupation: Retired Cognitive needs: No Hearing needs: No Vision needs: Yes (glasses) Review of Systems Const Denies chills, Denies fatigue, Denies fever(s), Denies frequent falls, Denies weakness, Denies weight gain and Denies weight loss ENT Denies dizziness Card Denies chest pain, Denies leg edema, Denies lightheadedness, Denies palpitations, Denies dyspnea, Denies dyspnea on exertion, Denies orthopnea and Denies other (loss of consciousness) Resp Denies cough, Denies dyspnea and Denies dyspnea on exertion GI Denies hematochezia and Denies change in stool character Musc Denies abnormal gait, Denies muscle weakness, Denies numbness, Denies radiating pain into limb and Denies tingling Neuro Denies abnormal gait, Denies dizziness, Denies frequent falls, Denies numbness, Denies tingling and Denies weakness Endo Denies fatigue and Denies palpitations Physical Exam Vital Signs: Last Vital Signs Pulse 76 02/09/25 09:37 BP 120/74 02/09/25 09:37 BMI result Body Mass Index 27.9 Const General: cooperative, comfortable, no acute distress, alert and awake Nutritional Appearance: average body habitus Orientation/consciousness: patient oriented x3 Limitations: no limitations Neck Neck: Yes trachea midline, Yes supple and Yes no JVD Resp Effort & Inspection: normal respiratory effort Auscultation: clear to auscultation bilaterally and diminished lung sounds Cardio Jugular venous distension: no JVD Palpation: normal PMI Rate: regular rate Rhythm: regular rhythm Heart sounds: S1 normal heart sound present and S2 normal heart sound present GI Auscultation: normal bowel sounds Skin General skin exam: no rashes or lesions noted Neuro General: patient oriented x3 and no focal motor deficits Extrem General: Yes no clubbing, cyanosis or edema Psych Appearance: grossly normal Office Procedures EKG Details: EKGs shows normal sinus rhythm with normal EKGs 21183-[id number], Complete Assessment & Plan Assessment & Plan (1) CAD (coronary artery disease): Comment: follows w/HCS Code(s): I25.10 - Atherosclerotic heart disease of [place] coronary artery without angina pectoris Category: Medical Qualifiers: Coronary Disease-Associated Artery/Lesion type: [place] artery [place] vs. transplanted heart: [place] heart Associated angina: without angina Qualified Code(s): I25.10 - Atherosclerotic heart disease of [place] coronary artery without angina pectoris Plan: Coronary artery disease nonobstructive by cardiac catheterization. He has no new symptoms suggestive of angina or myocardial ischemia. Continue to exercise. Discussed management. Continue low-dose aspirin therapy. Continue aggressive vascular risk factor modification. We discussed about pathophysiology of atherosclerosis and management as per recent scientific data. He has never had a primary event such as myocardial infarction and/or stenting or revascularization. At this point time he wants to do more research. I have suggested he can either try adjuvant therapy with ezetimibe out bump up his rosuvastatin to 40 mg. He wants to think about it. (2) HTN (hypertension): Code(s): I10 - Essential (primary) hypertension Category: Medical Qualifiers: Hypertension type: essential hypertension Qualified Code(s): I10 - Essential (primary) hypertension Plan: Hypertension which is currently well optimized on current regimen with lisinopril and spironolactone therapy. Continue current therapy and importance of good blood pressure control was discussed. He understands agrees. Advised low-salt diet. Advised to maintain activity level as tolerated. Will follow up in the clinic in 1 year's time, sooner PRN. Thank you for allowing me to partake in his care Medications: Changed From rosuvastatin (Crestor) 40 mg PO DAILY 90 tabs 3RF R06.02 - Shortness of breath To rosuvastatin (Crestor) 20 mg PO DAILY R06.02 - Shortness of breath Coding Level of Care Code Est Pt Level 4 (34433) Complex EM visit Add On G2211 Diagnoses Coronary artery disease involving [place] coronary artery of [place] heart without angina pectoris I25.10 Coronary Disease-Associated Artery/Lesion type: [place] artery [place] vs. transplanted heart: [place] heart Associated angina: without angina Essential hypertension I10 Hypertension type: essential hypertension CPT Codes EKG - CPT: 71975-[id number], Complete ([id number])
[2025-02-09 09:37] VITALS: BP 120/74; PULSE 76; BMI 27.9
--- OUTSIDE RECORDS SUMMARY | 2025-02-09 11:21 | XMS_ITS | Patient Health Record ---
Author Organization [facility] Address [address] [place] [address] Care Team Providers Care Mash Filter Operator Name Role Phone David Madden Primary Care Provider Rajeev Driscoll [phone] Allergies Allergen (clinical drug ingredient) Drug/Non Drug Allergy documented on EMR Reaction Allergy Type Onset Date Status grass,trees,mold,cat s, dogs (uncoded) Unknown Allergy Active Results Component Value Reference Range Notes Pathology (Not yet reviewed by provider) Interpretation: Performing Lab:[facility], [address] [place] [phone] Notes/Report: Reason For Referral No Information Medications [...] Status Risk Notes Problem Colon cancer screening (938224516) Colon cancer screening (Z12.11) Active confirmed Problem Pre-procedure evaluation check (853559198) Encounter for other preprocedural examination (Z01.818) Active confirmed Problem Long-term current use of aspirin (4862866293953 03) Aspirin long-term use (Z79.82) Active confirmed Vital Signs Blood pressure diastolic 00 mm Hg 02/10/2024 Height 69.5 in 02/10/2024 Blood pressure systolic 00 mm Hg 02/10/2024 Weight 190 lbs 02/10/2024 BMI 27.65 kg/m2 02/10/2024 Encounters Encounter Location Date Provider Diagnosis [facility] [address] [place], [place] [id number] 12/06/2024 Rajeev Lucas [facility] [address] [place] [address] 02/10/2024 Rajeev Lucas Colon cancer screeni ng Z12.11 ; Encounter for other preprocedural examination Z01.818 and Aspirin long-term use Z79.82 [facility] [address] [place] [address] 02/10/2024 Rajeev Lucas Assessments Encounter Date Diagnosis [...] of the procedure. He is leaving for [place] for the winter in a month or [...] of the procedure. He is leaving for [place] for the winter in a month or [...] of the procedure. He is leaving for [place] for the winter in a month or [...] Insured Coverage Start Date Coverage End Date [facility] [address] [place] [address] [id number] CHRIS CHAPIN Self - patient is the insured Medical (General) History Medical History History ICD Code Denies HI,DM,CVA,renal disease HTN Hyperlipidemia GERD EGD/Colonoscopy 2003 with [...]
--- OUTSIDE RECORDS SUMMARY | 2025-02-09 11:22 | XMS_ITS | Patient Health Record ---
Author Organization [facility]baldo silvana Edgar Address [address] [place] [address] Care Team Providers Care Drapery Operator Name Role Phone David Madden Primary Care Provider Unavailab Trey Ruffin Unavailable [phone] Allergies Allergen (clinical drug ingredient) Drug/Non Drug [...] [address] [place] [address] [id number] Lalo Hayes Self - patient is the insured Medical (General) History Medical History History ICD Code Hypertension Hyperlipidemia CAD (Cholesterol) Surgical History Surgery Date(Month/Year) cyst removal shoulder surgery nasal surgery
--- OUTSIDE RECORDS SUMMARY | 2025-02-09 11:22 | XMS_ITS | Patient Health Record ---
Author Organization [facility] Address [address] [facility] [address] [place] [address] Care Team Providers Care Stitch Rubber Name Role Phone David Briseno Primary Care Provider AHMET Elena Unavailable [phone] Allergies Allergen (clinical drug ingredient) Drug/Non Drug [...] Date [employer] [place] MED[employer] ADVANTAGE 1 [facility] [address] [place] [phone] [id number] Lalo Hayes Self - patient is the insured Medical (General) History Medical History History ICD Code asthma hypertension coronary artery disease gastroesophageal reflux disease (GERD) anxiety bladder cystitis mild COPD complex renal cyst hyperlipidemia COVID vaccinated Surgical History Surgery Date(Month/Year) removal of cyst cystostomy shoulder surgery nasal surgery
--- OUTSIDE RECORDS SUMMARY | 2025-02-09 11:22 | XMS_ITS | Clinical Summary ---
Author Organization [facility] Address [address] [place] [address] Care Team Providers Care Package Checker Name Role Phone Unavailable Primary Care Provider [...]
== END 2025-02-09 10:02 | disposition home or self-care (01) ==
LOC: HO.HCS 09:33
PROVIDERS: PCP Physician Assistant; Visit Provider Internal Medicine Cardiovascular Disease
DX: I25.10 Atherosclerotic heart disease of native coronary artery without angina pectoris (principal); I10 Essential (primary) hypertension
CPT/HCPCS: 93010; 99214; G2211

== ENCOUNTER → 2025-02-09 09:32 | Outpatient (BNVA) | payer MEDICARE, SELFPAY | PROVIDERS: PCP Physician Assistant; Visit Provider Internal Medicine Cardiovascular Disease | DX: I25.10 Atherosclerotic heart disease of native coronary artery without angina pectoris (principal); I10 Essential (primary) hypertension | CPT/HCPCS: 93005; 99212 ==

== ENCOUNTER 2025-02-09 10:14 | Outpatient (AMB) | payer MEDICARE, SELFPAY | END 2025-02-09 10:15 | disposition home or self-care (01) | LOC: HO.HMGAL 10:14 | PROVIDERS: PCP Physician Assistant; Visit Provider Registered Nurse Emergency | DX: J30.89 Other allergic rhinitis (principal) | CPT/HCPCS: 95117; 95165 ==

== ENCOUNTER 2025-02-23 10:09 | Outpatient (AMB) | payer MEDICARE, SELFPAY ==
--- OUTSIDE RECORDS SUMMARY | 2023-11-19 03:30 | XMS_ITS ---
Author Organization [facility] Address [address] [address] Care Team Providers Care Keg Washer Name Role Phone David Briseno Primary Care Provider AHMET Elena [phone] Allergies Allergen (clinical drug ingredient) Drug/Non Drug [...] Active Encounters Encounter Location Date Provider Diagnosis [facility] [address] [address] 11/19/2023 AHMET REVELES Plan Of Treatment No Information Progress Notes * CHRISRaquel LOAIZAhDOB: (69 yo M)Acc No.[id number]:11/19/2023 Consult note Patient: Echo PHAMLeonardJeronimoLalo Provider: Talon Reveles DPM :1955 A ge:67 Y S ex:Male Date:11/19/2023 Phone: Address:[address] [place] [address], [id number] Pcp:ISSAC Bauman Subjective: * Chief Complaints: * [...] Electronic signature of LINDA REVELES D.P.M on 02/23/2025 at 11:55 AM EST Sign off status: Pending * Provider: Talon Reveles DPM Date: 0 11/19/2023 Generated for Devendra clark/Lee/Zulma on: 04/25/2024 11:55 AM EST
--- OUTSIDE RECORDS SUMMARY | 2024-01-08 08:00 | XMS_ITS ---
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 Yes Points 0 Interpretation Negative Vital Signs Height 5 ft 10 in in 01/08/2024 Weight 195 lbs 01/08/2024 BMI 27.98 kg/m2 01/08/2024 Encounters Encounter Location Date Provider Diagnosis [facility] [address] [place] [phone] 01/08/2024 Trey Gaviria Plan Of Treatment No Information Progress Notes * Raquel PEREZhDOB: 7 (69 yo M)Acc No.[id number]:01/08/2024 Progress Notes Patient: Lalo LIAO Provider: Talon Gaviria DPM :1955 A ge:68 Y S ex:Male Date:01/08/2024 Address:[address] [place], [place] [phone] Pcp:David Madden Subjective: * Chief Complaints: * * Medical History: H ypertension, Hyperlipidemia, CAD (Cholesterol). * Surgical History: c yst removal , shoulder surgery , nasal surgery . * Family History: M other: alive. F ather: , coronary artery disease. S iblings: melanoma. * Social History: T obacco Use: T obacco Use/Smoking A re you a: n onsmoker A dditional Findings: Tobacco Non-User C urrent non-smoker D rugs/Alcohol: A lcohol Screen D id you have a drink containing alcohol in the past year? Y es P oints 0 I nterpretation N egative * Allergies: F krista Ant: anaphylaxis. Objective: * Vitals: H t:5 ft 10 in, Wt:195, BMI:27.98, Ht-cm: 177.8 cm, Wt-k.45 kg. Assessment: Plan: * Treatment: * Images: * The named appointment provid er may or may not be the originator of this progress note, and it is not deemed complete until electronically signed by the appointment provider. Sign off status: Pending * Provider: Talon Gaviria DPM Date: 0 01/08/2024 Generated for Devendra Reyes/Zulma on: 04/25/2024 11:54 AM EST
--- OUTSIDE RECORDS SUMMARY | 2024-02-12 06:20 | XMS_ITS ---
Author Organization [facility] Address [address] [place] [phone] Care Team Providers Care Solution Architect Name Role Phone David Madden Primary Care Provider Unavailab Rajeev Brock [phone] REASON FOR VISIT Patient presents today for a colon screening Encounters Encounter Location Date Provider Diagnosis [facility] [address] [place] [phone] 02/12/2024 Rajeev Lucas Plan Of Treatment No Information Progress Notes * ART PEREZHDOB: 7 (69 yo M)Acc No.[id number]:02/12/2024 Progress Notes Patient: CHAPIN LIAO Provider: Jaja Lucas MD :1955 A ge:68 Y S ex:Male Date:02/12/2024 Address:[address] [place], [place] [id number] Pcp:David Madden Subjective: * Chief Complaints: * 1 . Patient presents today for a colon screening. * Medical History: Objective: * Vitals: Assessment: Plan: * Treatment: * * The named appointment provid er may or may not be the originator of this progress note, and it is not deemed complete until electronically signed by the appointment provider. Sign off status: Pending * Provider: Jaja Lucas MD Date: Generated for Elsyi amber/Lee/eTransmitting on: 04/25/2024 11:55 AM EST
--- OUTSIDE RECORDS SUMMARY | 2024-09-22 02:30 | XMS_ITS ---
Author Organization [facility] Address [address] [place] [address] Care Team Providers Care Wood Planer Name Role Phone David Madden Primary Care Provider Unavailab Rajeev Brock [phone] REASON FOR VISIT screening Encounters Encounter Location Date Provider Diagnosis [facility] Outpatient [address] [place], [place] [phone] 09/22/2024 Rajeev Lucas Plan Of Treatment No Information Progress Notes * ART PEREZHDOB: (69 yo M)Acc No.[id number]:09/22/2024 COLON WITH MAC Patient: CHAPIN LIAO Provider: Jaja Lucas MD :1955 A ge:68 Y S ex:Male Date:09/22/2024 Address:[address] [place], [place] [phone] Pcp:David Madden Subjective: * Chief Complaints: * 1 . Screening. * Medical History: Objective: * Vitals: Assessment: Plan: * Treatment: * * The named appointment provid er may or may not be the originator of this progress note, and it is not deemed complete until electronically signed by the appointment provider. Sign off status: Pending * Provider: Jaja Lucas MD Date: 0 09/22/2024 Generated for Devendra clark/Lee/eTransmitting on: 1 04/25/2024 11:55 AM EST
--- OUTSIDE RECORDS SUMMARY | 2024-12-06 04:40 | XMS_ITS ---
Author Organization [facility] Address [address] [place] [address] Care Team Providers Care Distributed Energy Systems Consultant Name Role Phone David Madden Primary Care Provider Unavailab Rajeev Brock [phone] REASON FOR VISIT screening Encounters Encounter Location Date Provider Diagnosis [facility] Outpatient [address] [place], [place] [id number] 12/06/2024 Rajeev Lucas Plan Of Treatment No Information Progress Notes * ART PEREZHDOB: (69 yo M)Acc No.[id number]:12/06/2024 COLON WITH MAC Patient: CHAPIN LIAO Provider: Jaja Lucas MD :1955 A ge:68 Y S ex:Male Date:12/06/2024 Address:[address] [place], [place] [id number] Pcp:David Madden Subjective: * Chief Complaints: * 1 . Screening. * Medical History: Objective: * Vitals: Assessment: Plan: * Treatment: * * The named appointment provid er may or may not be the originator of this progress note, and it is not deemed complete until electronically signed by the appointment provider. Sign off status: Pending * Provider: Jaja Lucas MD Date: 0 12/06/2024 Generated for Devendra clark/Lee/eTransmitting on: 1 04/25/2024 11:55 AM EST
--- OUTSIDE RECORDS SUMMARY | 2025-02-23 11:55 | XMS_ITS | Patient Health Record ---
Author Organization [facility] Address [address] [place] [address] Care Team Providers Care Ruby On Rails Software Developer Name Role Phone David Madden Primary Care Provider Rajeev Driscoll [phone] Allergies Allergen (clinical drug ingredient) Drug/Non Drug Allergy documented on EMR Reaction Allergy Type Onset Date Status grass,trees,mold,cat s, dogs (uncoded) Unknown Allergy Active Results Component Value Reference Range Notes Pathology (Not yet reviewed by provider) Interpretation: Performing Lab:[facility], [address] [place] [phone] Notes/Report: Reason For Referral No Information Medications [...] Status Risk Notes Problem Colon cancer screening (906391154) Colon cancer screening (Z12.11) Active confirmed Problem Pre-procedure evaluation check (891534443) Encounter for other preprocedural examination (Z01.818) Active confirmed Problem Long-term current use of aspirin (8009644059410 03) Aspirin long-term use (Z79.82) Active confirmed Encounters Encounter Location Date Provider Diagnosis [facility] Out[facility] [address] [place], [place] [id number] 12/06/2024 Rajeev Lucas Plan Of Treatment Pending Test Test Name Order Date Pathology 12/06/2024 Future Test Test Name Order Date COLONOSCOPY 07/14/2013 COLONOSCOPY 02/10/2024 Insurance Providers Payer Name Payer Address Payer Phone Subscriber Number Group Number Insured Name Patient Relationship to Insured Coverage Start Date Coverage End Date [facility] [address] [place] [phone] [id number] CHAPIN PEREZ Self - patient is the insured Medical (General) History Medical History History ICD Code Denies [place],DM,CVA,renal disease HTN Hyperlipidemia GERD EGD/Colonoscopy 2003 with [...]
--- OUTSIDE RECORDS SUMMARY | 2025-02-23 11:56 | XMS_ITS | Patient Health Record ---
Author Organization [facility] Address [address] [place] [address] Care Team Providers Care Internal Medicine Nurse Name Role Phone David Madden Primary Care Provider Unavailab Trey Ruffin Unavailable [phone] Allergies Allergen (clinical drug ingredient) Drug/Non Drug [...] Medicare Advantage [address] [facility] [place] [address] [id number] Lalo Hayes Self - patient is the insured Medical (General) History Medical History History ICD Code Hypertension Hyperlipidemia CAD (Cholesterol) Surgical History Surgery Date(Month/Year) cyst removal shoulder surgery nasal surgery
--- OUTSIDE RECORDS SUMMARY | 2025-02-23 11:56 | XMS_ITS | Patient Health Record ---
Author Organization [facility] Address [address] [facility] [address] [place] [address] Care Team Providers Care Associate Professor Of Theatre Name Role Phone David Briseno Primary Care Provider AHMET Elena Unavailable [phone] Allergies Allergen (clinical drug ingredient) Drug/Non Drug [...] Date [employer] [place] MEDIC[employer] ADVANTAGE 1 [facility] [address] [facility] [phone] [id number] Lalo Hayes Self - patient is the insured Medical (General) History Medical History History ICD Code asthma hypertension coronary artery disease gastroesophageal reflux disease (GERD) anxiety bladder cystitis mild COPD complex renal cyst hyperlipidemia COVID vaccinated Surgical History Surgery Date(Month/Year) removal of cyst cystostomy shoulder surgery nasal surgery
--- OUTSIDE RECORDS SUMMARY | 2025-02-23 11:56 | XMS_ITS | Clinical Summary ---
Author Organization [facility] Address [address] [place] [address] Care Team Providers Care Scarf And Anneal Operator Name Role Phone Unavailable Primary Care [...]
== END 2025-02-23 10:13 | disposition home or self-care (01) ==
LOC: HO.HMGAL 10:09
PROVIDERS: PCP Physician Assistant; Visit Provider Registered Nurse Emergency
DX: J30.89 Other allergic rhinitis (principal)
CPT/HCPCS: 95117; 95165

== ENCOUNTER 2025-03-07 09:36 | Outpatient (AMB) | payer MEDICARE, SELFPAY ==
--- OUTSIDE RECORDS SUMMARY | 2023-11-19 03:30 | XMS_ITS ---
Author Organization [facility] Address [address] [address] Care Team Providers Care Uniform Attendant Name Role Phone David Briseno Primary Care Provider AHMET Elena [phone] Allergies Allergen (clinical drug ingredient) Drug/Non Drug Allergy documented on EMR Reaction Allergy Type Onset Date Status red imported fire ant allergenic extract fire ants (uncoded) anaphylaxis Allergy Ac tive REASON FOR VISIT Rt foot great toe infection, already placed on antibiotics with no relief Medications Medication SIG (Take, Route, Frequency, Duration) Notes Start Date End Date Status Albuterol Sulfate HFA 108 (90 Base) MCG/ACT 1 puff as needed Inhalation every 4 hrs Active Aspirin 81 MG 1 tablet Orally Once a day Active Citalopram Hydrobromide 10 MG 1 tablet Orally Once a day Active Fluticasone-Salmeterol 115-21 MCG/ACT 2 puffs Inhalation Twice a day Active Lisinopril 40 MG 1 tablet Orally Once a day Active LORazepam 0.5 MG 1 tablet at bedtime as needed Orally Once a day Active Pantoprazole Sodium 40 MG 1 tablet Orall y Once a day Active Rosuvastatin Calcium 20 MG 1 tablet Oral ly Once a day 30MG Active Spironolactone 25 MG 1 tablet Orally Active Encounters Encounter Location Date Provider Diagnosis [facility] [address] [address] 11/19/2023 AHMET REVELES Plan Of Treatment No Information Progress Notes * CHRISRaquel LOAIZAhDOB: (69 yo M)Acc No.[id number]:11/19/2023 Consult note Patient: Echo PHAMLeonardJeronimoLalo Provider: Talon Reveles DPM :1955 A ge:67 Y S ex:Male Date:11/19/2023 Phone: Address:[address] [place] [address], [place] [phone] Pcp:ISSAC Bauman Subjective: * Chief Complaints: * 1 . Rt foot great toe infection, already placed on antibiotics with no relief. * Medical History: A sthma, Hypertension, Coronary artery disease, gastroesophageal reflux disease (GERD), Anxiety, Bladder cystitis, mild COPD, Complex renal cyst, Hyperlipidemia, COVID vaccinated. * Surgical History: r emoval of cyst , cystostomy , shoulder surgery , nasal surgery . * Family History: F ather: , coronary artery disease. S iblings: brother- melanoma. * Social History: T obacco: no Alcohol: yes, 2-3 glasses wine per day. * Medications: T aking Spironolactone 25 MG Tablet 1 tablet Orally , Taking Rosuvastatin Calcium 20 MG Tablet 1 tablet Orally Once a day , Notes to Pharmacist: 30MG, Taking Pantoprazole Sodium 40 MG Tablet Delayed Release 1 tablet Orally Once a day , Taking LORazepam 0.5 MG Tablet 1 tablet at bedtime as needed Orally Once a day , Taking Lisinopril 40 MG Tablet 1 tablet Orally Once a day , Taking Fluticasone-Salmeterol 115-21 MCG/ACT Aerosol 2 puffs Inhalation Twice a day , Taking Citalopram Hydrobromide 10 MG Tablet 1 tablet Orally Once a day , Taking Aspirin 81 MG Tablet Delayed Release 1 tablet Orally Once a day , Taking Albuterol Sulfate HFA 108 (90 Base) MCG/ACT Aerosol Solution 1 puff as needed Inhalation every 4 hrs * Allergies: F krista Ants: Anaphylaxis. Objective: * Vitals: Therapeutic Interventions: Assessment: Plan: * Treatment: * Billing Information: * Visit Code: * Procedure Codes: * Electronic signature of LINDA REVELES D.P.M on 03/07/2025 at 11:04 AM EST Sign off status: Pending * Provider: Talon Reveles DPM Date: 11/19/2023 Generated for Devendra clark/Lee/Zulma on: 05/07/2024 11:04 AM EST
--- OUTSIDE RECORDS SUMMARY | 2024-01-08 08:00 | XMS_ITS ---
Author Organization [facility] Address [address] [place] [phone] Care Team Providers Care Circuit Tester Name Role Phone David Madden Primary Care Provider Unavailab Trey Ruffin Unavailable [phone] Allergies Allergen (clinical drug ingredient) Drug/Non Drug [...] 01/08/2024 Encounters Encounter Location Date Provider Diagnosis [facility] [address] [place] [phone] 01/08/2024 Trey Gaviria Plan Of Treatment No Information Progress Notes * Raquel PEREZhDOB: 7 (69 yo M)Acc No.[id number]:01/08/2024 Progress Notes Patient: Lalo LIAO Provider: Talon Gaviria DPM :1955 A ge:68 Y S ex:Male Date:01/08/2024 Address:[address] [place], [place] [id number] Pcp:David Madden Subjective: * Chief Complaints: * [...] 0 01/08/2024 Generated for Devendra Reyes/Zulma on: 05/07/2024 11:03 AM EST
--- OUTSIDE RECORDS SUMMARY | 2024-02-12 06:20 | XMS_ITS ---
Author Organization [facility] Address [address] [place] [phone] Care Team Providers Care V Belt Curer Name Role Phone David Madden Primary Care Provider Unavailab Rajeev Brock [phone] REASON FOR VISIT Patient presents today for a colon screening Encounters Encounter Location Date Provider Diagnosis [facility] [address] [place] [phone] 02/12/2024 Rajeev Lucas Plan Of Treatment No Information Progress Notes * ART PEREZHDOB: 7 (69 yo M)Acc No.[id number]:02/12/2024 Progress Notes Patient: CHAPIN LIAO Provider: Jaja Lucas MD :1955 A ge:68 Y S ex:Male Date:02/12/2024 Address:[address] [place], [place] [id number] Pcp:David Madden Subjective: * Chief Complaints: * P atient presents today for a colon screening * The named appointment provid er may or may not be the originator of this progress note, and it is not deemed complete until electronically signed by the appointment provider. Sign off status: Pending * Provider: Jaja Lucas MD Date: Generated for Devendra clark/Fasmitag/eTransmitting on: 05/07/2024 11:04 AM EST
--- OUTSIDE RECORDS SUMMARY | 2024-09-22 02:30 | XMS_ITS ---
Author Organization [facility] Address [address] [place] [address] Care Team Providers Care Assessment Nurse Name Role Phone David Madden Primary Care Provider Unavailab Rajeev Brock [phone] REASON FOR VISIT screening Encounters Encounter Location Date Provider Diagnosis [facility] [place] [address] [place], [place] [phone] 09/22/2024 Rajeev Lucas Plan Of Treatment No Information Progress Notes * ART PEREZHDOB: (69 yo M)Acc No.[id number]:09/22/2024 COLON WITH MAC Patient: CHAPIN LIAO Provider: Jaja Lucas MD :1955 A ge:68 Y S ex:Male Date:09/22/2024 Address:[address] [place], [place] [phone] Pcp:David Madden Subjective: * Chief Complaints: * S creening * The named appointment provid er may or may not be the originator of this progress note, and it is not deemed complete until electronically signed by the appointment provider. Sign off status: Pending * Provider: Jaja Lucas MD Date: 0 09/22/2024 Generated for Devendra clark/Lee/eTransmitting on: 05/07/2024 11:04 AM EST
--- OUTSIDE RECORDS SUMMARY | 2024-12-06 04:40 | XMS_ITS ---
Author Organization [facility] Address [address] [place] [address] Care Team Providers Care Senior Examiner Name Role Phone David Madden Primary Care Provider Unavailab Rajeev Brock [phone] REASON FOR VISIT screening Encounters Encounter Location Date Provider Diagnosis [facility] Out[place] [address] [place], [place] [phone] 12/06/2024 Rajeev Lucas Plan Of Treatment No Information Progress Notes * ART PEREZHDOB: (69 yo M)Acc No.[id number]:12/06/2024 COLON WITH MAC Patient: CHAPIN LIAO Provider: Jaja Lucas MD :1955 A ge:68 Y S ex:Male Date:12/06/2024 Address:[address] [place], [place] [id number] Pcp:David Madden Subjective: * Chief Complaints: * S creening Billing Information: * Procedure Codes: * The named appointment provid er may or may not be the originator of this progress note, and it is not deemed complete until electronically signed by the appointment provider. Sign off status: Pending * Provider: Jaja Lucas MD Date: 0 12/06/2024 Generated for Devendra clark/Lee/eTransmitting on: 05/07/2024 11:04 AM EST
--- OUTSIDE RECORDS SUMMARY | 2025-03-07 11:04 | XMS_ITS | Patient Health Record ---
Author Organization [facility] Address [address] [place] [address] Care Team Providers Care Brownell Operator Name Role Phone David Madden Primary Care Provider Rajeev Driscoll [phone] Allergies Allergen (clinical drug ingredient) Drug/Non Drug Allergy documented on EMR Reaction Allergy Type Onset Date Status grass,trees,mold,cat s, dogs (uncoded) Unknown Allergy Active Results Component Value Reference Range Notes Pathology (Not yet reviewed by provider) Interpretation: Performing Lab:[facility], [address] [place] [phone] Notes/Report: Reason For Referral No Information Medications Medication SIG (Take, Route, Frequency, Duration) Notes Start Date End Date Status Allergy shots Active Flonase Active Rosuvastatin Calcium 40 MG Tablet Oral; Duration: 90 Active Pantoprazole Sodium 40 MG Tablet Delayed Release 1 tablet 1/2 to 1 hour before morning meal Orally Once a day Active Lisinopril 40 MG Tablet 1 tablet Orally Once a day Active Aspirin Adult Low Dose 81 MG Tablet Delayed Release 1 tablet Orally Once a day; Duration: 30 day(s) Active Singulair 10 MG Tablet 1 tablet Orally O nce a day; Duration: 30 day(s) Active Spironolactone 25 MG Tablet 1/2 tablet O rally Once a day Active Social History Social History Additional Details Category Social Info Options Details Miscellaneous: Marital status: 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 Section Notes: Nonsmoker; social drinker-no t daily, but 3-4 days a week Nonsmoker; social drinker-no t daily, but 3-4 days a week Problems Problem Type SNOMED Code ICD Code Onset Dates Problem Status W/U Status Risk Notes Problem Colon cancer screening (247663311) Colon cancer screening (Z12.11) Active confirmed Problem Pre-procedure evaluation check (483899826) Encounter for other preprocedural examination (Z01.818) Active confirmed Problem Long-term current use of aspirin (7849577146286 03) Aspirin long-term use (Z79.82) Active confirmed Encounters Encounter Location Date Provider Diagnosis [facility] [place] Out[place] [address] [place] [id number] 12/06/2024 Rajeev Lucas Plan Of Treatment Pending Test Test Name Order Date Pathology 12/06/2024 Future Test Test Name Order Date COLONOSCOPY 07/14/2013 COLONOSCOPY 02/10/2024 Insurance Providers Payer Name Payer Address Payer Phone Subscriber Number Group Number Insured Name Patient Relationship to Insured Coverage Start Date Coverage End Date [facility] [address] [place] [phone] [id number] CHAPIN PEREZ Self - patient is the insured Medical (General) History Medical History History ICD Code Denies [place],DM,CVA,renal disease HTN Hyperlipidemia GERD EGD/Colonoscopy 2003 with [...]
--- OUTSIDE RECORDS SUMMARY | 2025-03-07 11:05 | XMS_ITS | Patient Health Record ---
Author Organization [facility] Address [address] [facility] [address] [place] [address] Care Team Providers Care Waistline Joiner Name Role Phone David Briseno Primary Care Provider AHMET Elena Unavailable [phone] Allergies Allergen (clinical drug ingredient) Drug/Non Drug [...] Date [employer] [place] [employer] ADVANTAGE 1 [facility] [address] [place] [phone] [id number] Lalo Hayes Self - patient is the insured Medical (General) History Medical History History ICD Code asthma hypertension coronary artery disease gastroesophageal reflux disease (GERD) anxiety bladder cystitis mild COPD complex renal cyst hyperlipidemia COVID vaccinated Surgical History Surgery Date(Month/Year) removal of cyst cystostomy shoulder surgery nasal surgery
--- OUTSIDE RECORDS SUMMARY | 2025-03-07 11:05 | XMS_ITS | Clinical Summary ---
Author Organization [facility] Address [address] [place] [address] Care Team Providers Care Trailer Technician Name Role Phone Unavailable Primary Care Provider [...]
--- OUTSIDE RECORDS SUMMARY | 2025-03-07 11:05 | XMS_ITS | Patient Health Record ---
Author Organization [facility] [place] Address [address] [place] [address] Care Team Providers Care Knitting Machine Operator Automatic Name Role Phone David Madden Primary Care Provider Unavailab Trey Ruffin Unavailable [phone] Allergies Allergen (clinical drug ingredient) Drug/Non Drug [...] Medicare Advantage [address] [facility] [place] [address] [id number] Lalo Hayes Self - patient is the insured Medical (General) History Medical History History ICD Code Hypertension Hyperlipidemia CAD (Cholesterol) Surgical History Surgery Date(Month/Year) cyst removal shoulder surgery nasal surgery
== END 2025-03-07 09:36 | disposition home or self-care (01) ==
LOC: HO.HMGAL 09:36
PROVIDERS: PCP Physician Assistant; Visit Provider Registered Nurse Emergency
DX: J30.89 Other allergic rhinitis (principal)
CPT/HCPCS: 95117; 95165

== ENCOUNTER 2025-03-23 10:50 | Outpatient (AMB) | payer MEDICARE, SELFPAY | END 2025-03-23 10:51 | disposition home or self-care (01) | LOC: HO.HMGAL 10:50 | PROVIDERS: PCP Physician Assistant; Visit Provider Registered Nurse Emergency | DX: J30.89 Other allergic rhinitis (principal) | CPT/HCPCS: 95117; 95165 ==